=== PATIENT | female | born 1970 | race Caucasian/White ===

== ENCOUNTER → 2016-07-21 | Outpatient (CLI) | payer BC ==
[~2016-07-21] MED LIST: FERR325T88 PO; OMEP40CA2 PO; SIMV20TA2 PO; SUCR1TA PO; TELM1TAB PO; VITA100037 PO
[2016-07-21 17:20] LABS: ALBUMIN/GLOBULIN RATIO 1.18 (1.00-1.93); ALKALINE PHOSPHATASE 112 U/L (45-117); ALT/SGPT 31 U/L (12-78); ANION GAP 9 MEQ/L (8-16); AST/SGOT 24 U/L (15-37); BILIRUBIN,TOTAL 0.3 MG/DL (0.2-1.0); BLOOD UREA NITROGEN 20 MG/DL (7-18); CALCIUM LEVEL 8.7 MG/DL (8.5-10.1); CARBON DIOXIDE LEVEL 25 MEQ/L (21-32); CHLORIDE LEVEL 106 MEQ/L (98-107); CREATININE FOR GFR 0.82 MG/DL (0.55-1.02); FERRITIN 19 NG/ML (8-252); GLOMERULAR FILTRATION RATE > 60.0 (>58); GLUCOSE, FASTING 89 MG/DL (70-105); PERCENT SATURATION 15.5 % (13.2-37.4); POTASSIUM SERUM 4.4 MEQ/L (3.5-5.1); SODIUM LEVEL 140 MEQ/L (136-145); TOTAL IRON BINDING CAPACITY 453 UG/DL (250-450); TOTAL PROTEIN 7.4 GM/DL (6.4-8.2)
[2016-07-21 17:37] LABS: MEAN CORPUSCULAR HEMOGLOBIN 30.6 pg (27.0-33.0); MEAN CORPUSCULAR HGB CONC 34.6 g/dl (32.0-36.5); MEAN CORPUSCULAR VOLUME 88.4 fl (80.0-96.0); RED CELL DISTRIBUTION WIDTH 13.6 % (11.5-14.5); WHITE BLOOD COUNT 4.4 K/mm3 (4.0-10.0)
[2016-07-21 17:39] LABS: REASON FOR REVIEW OTHER
[2016-07-21 19:56] LABS: BASOPHILS 2 % (0-4); EOSINOPHILS 2 % (0-5)
== END | disposition home or self-care (01) ==
LOC: M LAB 16:10
PROVIDERS: ATTEND Family Medicine
DX: D50.9 Iron deficiency anemia, unspecified (principal); E55.9 Vitamin D deficiency, unspecified

== ENCOUNTER 2016-10-18 05:49 | Day surgery (SDC) | payer BC ==
[2016-10-18] VITALS (8 sets, daily range): BP systolic 120–138; BP diastolic 65–89
[~2016-10-18] VITALS: Ht 152.4 cm; Wt 87.5 kg
[~2016-10-18 05:49] MED LIST changes: +ESOM1CAP5 PO
[2016-10-18] MEDS ORDERED: LR 1,000 ML IV SCH ×2 (06:00→10:00)
[2016-10-18] MEDS: LR 1,000 ML IV SCH ×4 (06:00→18:30)
[2016-10-18 06:24] LABS: MEAN CORPUSCULAR HEMOGLOBIN 28.3 pg (27.0-33.0); MEAN CORPUSCULAR HGB CONC 32.3 g/dl (32.0-36.5); MEAN CORPUSCULAR VOLUME 87.6 fl (80.0-96.0); RED CELL DISTRIBUTION WIDTH 14.2 % (11.5-14.5); WHITE BLOOD COUNT 6.8 K/mm3 (4.0-10.0)
[2016-10-18 06:38] LABS: CONTROL LINE HCG INT CTR LINE PRESENT
[2016-10-18] MEDS ORDERED: ROCURONIUM BROMIDE 50 MG/5 ML VIAL As Ordered ONE (06:57)
[2016-10-18] MEDS ORDERED: PROPOFOL 200 MG/20 ML VIAL As Ordered ONE (06:57)
[2016-10-18] MEDS ORDERED: LIDOCAINE 2% INJ 100 MG/5 ML SDV (FOR ANES.) As Ordered ONE (06:57)
[2016-10-18] MEDS ORDERED: fentaNYL 250 MCG/5 ML INJECTION (J3010) As Ordered ONE (06:58)
[2016-10-18] MEDS ORDERED: MIDAZOLAM INJ 2 MG/2 ML VIAL (J2250) As Ordered ONE (06:58)
[2016-10-18] MEDS ORDERED: PHENYLephrine HCL 500 MCG/5 ML (100MCG/ML) SYRINGE (J2370) As Ordered ONE (07:38)
[2016-10-18] MEDS ORDERED: ePHEDrine SULFATE 25 MG/5 ML(5MG/ML) SYRINGE As Ordered ONE (07:45)
[2016-10-18] MEDS ORDERED: GLYCOPYRROLATE INJ 0.2 MG/ML 2 ML VIAL As Ordered ONE (08:46)
[2016-10-18] MEDS ORDERED: ONDANSETRON 4MG/2ML VIAL (J2405) As Ordered ONE ×2 (08:46→09:43)
[2016-10-18] MEDS ORDERED: KETOROLAC 60 MG/2 ML VIAL (J1885) As Ordered ONE (08:46)
[2016-10-18] MEDS ORDERED: NEOSTIGMINE 1MG/ML 5 ML SYRINGE (J2710) As Ordered ONE (08:46)
[2016-10-18] MEDS ORDERED: METHYLENE BLUE 0.5% (5MG/ML) 10 ML AMP (PROVAYBLUE)(Q9968 PER 1MG) As Ordered ONE (08:47)
[2016-10-18] MEDS ORDERED: fentaNYL 100 MCG/2 ML INJECTION (J3010) As Ordered ONE ×2 (08:54→10:10)
[2016-10-18] MEDS ORDERED: NORCO, ANEXSIA 5/325MG TABLET (HYDROcodone/ACETAMINOPHEN) PO PRN ×2 (10:00)
[2016-10-18] MEDS ORDERED: ONDANSETRON 4MG/2ML VIAL (J2405) IV PRN (10:00)
[2016-10-18] MEDS ORDERED: IBUPROFEN 600 MG TAB PO PRN (10:15)
[2016-10-18] MEDS: fentaNYL 100 MCG/2 ML INJECTION (J3010) IV PRN ×2 (10:15→10:20)
[2016-10-18] MEDS ORDERED: METOCLOPRAMIDE INJ 10MG/2ML VIAL (J2765) As Ordered ONE (10:16)
[2016-10-18] MEDS ORDERED: METOCLOPRAMIDE INJ 10MG/2ML VIAL (J2765) IV PRN (10:45)
--- NOTE | 2016-10-18 10:49 | RO ---
DATE OF PROCEDURE: 10/18/2016 PREOPERATIVE DIAGNOSIS/INDICATION FOR SURGERY: Dysmenorrhea, menorrhagia, failed conservative efforts. POSTOPERATIVE DIAGNOSIS: Dysmenorrhea, menorrhagia, failed conservative efforts, fibroids. PROCEDURE: Total vaginal hysterectomy with right salpingectomy and cystourethroscopy. SURGEON: Martha Sebastian MD CITY SECRETARY: ANESTHESIA: General endotracheal anesthesia. BRIEF DESCRIPTION OF PROCEDURE AND FINDINGS: Annetta was brought to the operating room where sufficient anesthesia was induced and she was prepped, draped and positioned in the usual sterile fashion. The weighted speculum placed, the bladder emptied, and the anterior and posterior aspect of the cervix grasped with single tooth tenacula. A circumferential incision was made around the base of the cervix, which was unusually friable in texture. We then isolated the cardinal ligament, clamped, transected and ligated them using the Dickson clamps, which were used through and #0 Vicryl, which was used throughout. We then isolated the uterosacral, clamped, transected and ligated them, and in a third bite on the patient's left side, which we did next after deflecting the bladder away anterior, there appeared to be some fat or other tissue there. There was some concern for being to close to the bladder so a decision on the basis of this unusual finding during the case was then made for the addition of cystourethroscopy to the case. We proceeded with the dissection, having more difficulty than usual anteriorly. The cervix in fact we ended up undermining in the cervical tissue and entering into the endometrial canal anteriorly and still not really finding that plane smoothly. We went ahead and dissected further along the patient's right side and then came back across in the proper plane and then continued to gradually dissect through the uterine vasculature in a progressive fashion along each side of the uterus until the level of the utero-ovarian suspensory ligaments were reached and the fallopian tubes and round ligaments, having clamped, transected ligated these, the uterus was delivered intact. There did not appear during the case to be any unusual fluid discharge or any evidence of injury from the ureter or bladder. Nevertheless, we held to that decision to scope her. First we made sure that the pedicles were good. We could not see the left tube and the patient's tissues were remarkably friable. There appeared to be some generating fibroids within the uterus and this is possibly the source of that other appearing tissue which may have been degenerating fibroid rather than fat. Nevertheless, we checked the pedicles. We were able to get the fimbria on the right side and bring those down. There is a little portion of the midportion of the tube there that was adherent to the ovary which the patient did not want to lose and so we went ahead and took the distal portion of the right tube and then left the left tube because we could not bring it down safely. I checked the pedicles which were try and then angle stitches of #0 Vicryl were used to close the angles and we then re-incorporated the uterosacral with good support to the vagina and closed the vaginal cuff with a running locked stitch of #0 Vicryl. We then placed the cystoscope. The first finding is that there was still urine within the bladder, so no evidence that it had been leaking out during the case, but in fact she had collected more after being emptied at the beginning of the case, and we emptied this out so as to improve our view. I gave the patient methylene blue and we were able to see the absence of any injury to the bladder and normal jets of urine with blue dye from each ureteral orifice. We have not used any cautery in the entire case, so there was no risk of cautery injury at all. Having confirmed the absence of bladder injury and of course having already closed the cuff, the procedure was then ended. ESTIMATED BLOOD FOR THE PROCEDURE: About 100 mL. FLUID REPLACEMENT: Crystalloid. COMPLICATIONS: None. CONDITION AND DISPOSITION: Annetta tolerated the procedure well and was recovering in the recovery room in good condition.
[2016-10-18] MEDS ORDERED: GABAPENTIN 300 MG CAP PO SCH (21:00)
[2016-10-18] MEDS ORDERED: SIMVASTATIN 20 MG TAB PO SCH (21:00)
[2016-10-19] VITALS: BP 118/63
[2016-10-19] MEDS: LR 1,000 ML IV SCH (02:35)
[2016-10-19 04:00] VITALS: BP 121/72
[2016-10-19 07:00] LABS: MEAN CORPUSCULAR HEMOGLOBIN 28.5 pg (27.0-33.0); MEAN CORPUSCULAR HGB CONC 32.2 g/dl (32.0-36.5); MEAN CORPUSCULAR VOLUME 88.5 fl (80.0-96.0); RED CELL DISTRIBUTION WIDTH 14.5 % (11.5-14.5); WHITE BLOOD COUNT 8.2 K/mm3 (4.0-10.0)
[2016-10-19 09:00] VITALS: BP 132/68
== END 2016-10-19 10:27 | disposition home or self-care (01) ==
LOC: M SDC 05:49 → M PED 10:49 → M SDC 10-19 10:27
PROVIDERS: ATTEND Obstetrics & Gynecology
DX: N94.6 Dysmenorrhea, unspecified (principal); N92.0 Excessive and frequent menstruation with regular cycle; D25.9 Leiomyoma of uterus, unspecified; K21.9 Gastro-esophageal reflux disease without esophagitis; G47.33 Obstructive sleep apnea (adult) (pediatric); E78.00 Pure hypercholesterolemia, unspecified; M54.9 Dorsalgia, unspecified; I35.1 Nonrheumatic aortic (valve) insufficiency; I71.01 Dissection of thoracic aorta; I10 Essential (primary) hypertension; R94.31 Abnormal electrocardiogram [ECG] [EKG]; E66.9 Obesity, unspecified; M12.9 Arthropathy, unspecified; D64.9 Anemia, unspecified; E55.9 Vitamin D deficiency, unspecified; Z88.5 Allergy status to narcotic agent; Z91.041 Radiographic dye allergy status; Z79.899 Other long term (current) drug therapy; Z79.82 Long term (current) use of aspirin; Z98.51 Tubal ligation status; Z87.81 Personal history of (healed) traumatic fracture; Z87.891 Personal history of nicotine dependence
CPT/HCPCS: 36415; 58262; 84703; 85027; 86850; 86900; 86901; 88309; 96374; 96375; J0690; J1885; J2250; J2370; J2405; J2710; J2765; J3010; Q9968

== ENCOUNTER → 2016-11-09 | Outpatient (CLI) | payer BC ==
[2016-11-09 11:21] LABS: BASO # 0.1 K/mm3 (0.0-0.2); BASO % 1.3 % (0.0-1.0); EOS # 0.1 K/mm3 (0.0-0.50); EOS % 1.6 % (0.0-3.0); LYMPH # 1.1 K/mm3 (1.5-4.5); LYMPH % 19.6 % (24.0-44.0); MEAN CORPUSCULAR HEMOGLOBIN 29.2 pg (27.0-33.0); MEAN CORPUSCULAR HGB CONC 33.4 g/dl (32.0-36.5); MEAN CORPUSCULAR VOLUME 87.3 fl (80.0-96.0); MONO # 0.3 K/mm3 (0.0-0.8); MONO % 5.3 % (0.0-5.0); NEUTROPHILS # 3.8 K/mm3 (1.8-7.7); NEUTROPHILS % 70.8 % (36.0-66.0); RED CELL DISTRIBUTION WIDTH 15.2 % (11.5-14.5); WHITE BLOOD COUNT 5.3 K/mm3 (4.0-10.0)
[2016-11-09 11:48] LABS: ANION GAP 3 MEQ/L (8-16); BLOOD UREA NITROGEN 16 MG/DL (7-18); CALCIUM LEVEL 8.9 MG/DL (8.5-10.1); CARBON DIOXIDE LEVEL 30 MEQ/L (21-32); CHLORIDE LEVEL 107 MEQ/L (98-107); CREATININE FOR GFR 0.68 MG/DL (0.55-1.02); GLOMERULAR FILTRATION RATE > 60.0 (>58); GLUCOSE, FASTING 76 MG/DL (70-105); POTASSIUM SERUM 4.8 MEQ/L (3.5-5.1); SODIUM LEVEL 140 MEQ/L (136-145)
--- NOTE | 2016-11-09 14:11 | ECGEPIP ---
Stationary ECG Study 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
== END ==
LOC: M LAB 10:32
PROVIDERS: ATTEND Obstetrics & Gynecology
DX: Z01.810 Encounter for preprocedural cardiovascular examination (principal); C54.1 Malignant neoplasm of endometrium; R94.31 Abnormal electrocardiogram [ECG] [EKG]

== ENCOUNTER → 2016-11-09 | Outpatient (CLI) | payer BC ==
[2016-11-09 11:20] LABS: BASO # 0.1 K/mm3 (0.0-0.2); BASO % 1.1 % (0.0-1.0); EOS # 0.1 K/mm3 (0.0-0.50); EOS % 1.9 % (0.0-3.0); LARGE UNSTAINED CELL # 0.1 K/mm3 (0.0-0.4); LARGE UNSTAINED CELL % 1.2 % (0.0-4.0); LYMPH # 1.1 K/mm3 (1.5-4.5); LYMPH % 20.2 % (24.0-44.0); MEAN CORPUSCULAR HEMOGLOBIN 29.2 pg (27.0-33.0); MEAN CORPUSCULAR HGB CONC 33.6 g/dl (32.0-36.5); MEAN CORPUSCULAR VOLUME 86.9 fl (80.0-96.0); MONO # 0.3 K/mm3 (0.0-0.8); MONO % 5.7 % (0.0-5.0); NEUTROPHILS # 3.6 K/mm3 (1.8-7.7); NEUTROPHILS % 69.9 % (36.0-66.0); PLATELET COUNT, AUTOMATED 307 k/mm3 (150-450); RED CELL DISTRIBUTION WIDTH 15.2 % (11.5-14.5); WHITE BLOOD COUNT 5.2 K/mm3 (4.0-10.0)
[2016-11-09 11:52] LABS: PERCENT SATURATION 17.8 % (13.2-37.4)
== END ==
LOC: M LAB 10:37
PROVIDERS: ATTEND Family Medicine
DX: D50.9 Iron deficiency anemia, unspecified (principal); E78.2 Mixed hyperlipidemia

== ENCOUNTER → 2017-01-24 | Outpatient (CLI) | payer BC ==
[~2017-01-24] MED LIST changes: -VITA100037 PO; +VITA100067 PO
--- NOTE | 2017-01-24 21:14 | REP ---
Right ankle series, complete: 01/24/2017. Clinical history: Right ankle pain. Patient fell. Findings: There are no prior studies. There is soft tissue swelling over the anterolateral aspect of the ankle and hind foot. There is no visible or displaced fracture of the distal tibia and fibula. The mortise joint is symmetric and preserved with no talar dome osteochondral defect. Subtalar joints are intact. No heel spurs. Talonavicular and calcaneocuboid joints are normal. Visualized tarsal bones and metatarsals intact. Impression: 1. Soft tissue swelling anterior to the ankle and lateral aspect with no visible or displaced fracture, avulsion, disruption of the mortise joint or other acute finding Signed by Dario Farah MD 01/24/2017 09:36 P
== END ==
LOC: M ADAMS 14:27
PROVIDERS: ATTEND Physician Assistant
DX: M25.571 Pain in right ankle and joints of right foot (principal); M79.89 Other specified soft tissue disorders

== ENCOUNTER → 2017-04-14 | Outpatient (CLI) | payer BC ==
--- NOTE | 2017-04-15 06:14 | REP ---
Clinical: Renal cyst. Comparison: 01/28/2016. Technique: Real time wing scale ultrasound examination using curved array transducer. Findings: The bilateral kidneys are normal in contour, size, echogenicity, and reniform shape without hydronephrosis, nephrolithiasis, cystic or renal mass lesion. No perinephric fluid collections are identified. The bladder is collapsed and under distended. Right kidney measures 10.0 x 5.2 x 4.4 cm Left kidney measures 10.5 x 4.9 x 4.6 cm Impression: Normal renal ultrasound. No obvious/significant cyst by ultrasound evaluation identified. Signed by Benji Cope MD 04/15/2017 06:05 A
== END ==
LOC: M RAD 16:39
PROVIDERS: ATTEND Family Medicine
DX: N28.1 Cyst of kidney, acquired (principal)

== ENCOUNTER → 2017-08-03 | Outpatient (REF) | payer BC | LOC: M SFHCWAGY 15:22 | DX: Z12.72 Encounter for screening for malignant neoplasm of vagina (principal); Z85.42 Personal history of malignant neoplasm of other parts of uterus | CPT/HCPCS: G0123 ==

== ENCOUNTER → 2017-08-03 | Outpatient (CLI) | payer BC ==
[2017-08-03 07:23] LABS: BASO # 0.1 10^3/uL (0.0-0.2); BASO % 1.3 % (0.0-1.0); EOS # 0.1 10^3/uL (0.0-0.50); EOS % 1.8 % (0.0-3.0); HEMATOCRIT 42.6 % (36.0-47.0); HEMOGLOBIN 14.3 g/dl (12.0-16.0); IMMATURE GRANULOCYTE % 0.2 % (0-0); LYMPH # 1.8 10^3/uL (1.5-4.5); LYMPH % 32.3 % (24.0-44.0); MEAN CORPUSCULAR HGB CONC 33.6 g/dl (32.0-36.5); MEAN CORPUSCULAR VOLUME 92.4 fl (80.0-96.0); MONO # 0.5 10^3/uL (0.0-0.8); MONO % 8.9 % (0.0-5.0); NEUTROPHILS % 55.5 % (36.0-66.0); PLATELET COUNT, AUTOMATED 301 10^3/uL (150-450); RED BLOOD COUNT 4.61 10^6/uL (4.00-5.40); WHITE BLOOD COUNT 5.4 10^3/uL (4.0-10.0)
[2017-08-03 07:52] LABS: ESTIMATED AVERAGE GLUCOSE 111 MG/DL (60-110); HEMOGLOBIN A1c 5.5 %
[2017-08-03 07:56] LABS: ALBUMIN 4.1 GM/DL (3.2-5.2); ALBUMIN/GLOBULIN RATIO 1.21 (1.00-1.93); ALKALINE PHOSPHATASE 107 U/L (45-117); ALT/SGPT 30 U/L (12-78); ANION GAP 11 MEQ/L (8-16); AST/SGOT 20 U/L (7-37); BILIRUBIN,TOTAL 0.6 MG/DL (0.2-1.0); BLOOD UREA NITROGEN 10 MG/DL (7-18); CALCIUM LEVEL 9.5 MG/DL (8.5-10.1); CARBON DIOXIDE LEVEL 23 MEQ/L (21-32); CHLORIDE LEVEL 110 MEQ/L (98-107); CHOLESTEROL LEVEL 164 MG/DL (<200); CHOLESTEROL RISK RATIO 4.823 (<5); CPK CREATINE PHOSPHOKINASE 265 U/L (26-192); CREATININE FOR GFR 0.88 MG/DL (0.55-1.30); FERRITIN 51 NG/ML (8-252); FREE T4 1.15 NG/DL (0.76-1.46); GLOMERULAR FILTRATION RATE > 60.0 (>58); GLUCOSE, FASTING 97 MG/DL (70-100); HDL CHOLESTEROL 34 MG/DL (>40); IRON (FE) 92 UG/DL (50-170); LDL CHOLESTEROL 94.2 MG/DL (<100); NON-HDL-C 130 MG/DL; PERCENT SATURATION 22.9 % (13.2-45.0); POTASSIUM SERUM 4.2 MEQ/L (3.5-5.1); SODIUM LEVEL 144 MEQ/L (136-145); TOTAL IRON BINDING CAPACITY 402 UG/DL (250-450); TOTAL PROTEIN 7.5 GM/DL (6.4-8.2); TRIGLYCERIDES LEVEL 179 MG/DL (<150)
[2017-08-03 08:50] LABS: TOTAL 25(OH) VITAMIN D 61.9 NG/ML (30.0-100.0)
[2017-08-03 08:51] LABS: PTH INTACT 33.3 PG/ML (14.0-72.0)
[2017-08-04 14:11] LABS: INSULIN LEVEL 44.1 uIU/mL (2.6-24.9)
== END ==
LOC: M LAB 06:19
DX: D50.9 Iron deficiency anemia, unspecified (principal); E78.2 Mixed hyperlipidemia; E55.9 Vitamin D deficiency, unspecified; C54.1 Malignant neoplasm of endometrium

== ENCOUNTER → 2017-09-15 | Outpatient (CLI) | payer BC | LOC: M RAD 06:11 | DX: I71.4 Abdominal aortic aneurysm, without rupture (principal) ==

== ENCOUNTER → 2017-10-26 | Outpatient (REF) | payer BC | LOC: M SFHCWAGY 15:53 | DX: Z12.72 Encounter for screening for malignant neoplasm of vagina (principal); Z85.42 Personal history of malignant neoplasm of other parts of uterus | CPT/HCPCS: G0123 ==

== ENCOUNTER → 2017-12-30 | Outpatient (CLI) | payer BC ==
[2017-12-30 07:14] LABS: BASO # 0.1 10^3/uL (0.0-0.2); BASO % 1.6 % (0.0-1.0); EOS # 0.1 10^3/uL (0.0-0.50); EOS % 1.8 % (0.0-3.0); HEMATOCRIT 39.7 % (36.0-47.0); HEMOGLOBIN 13.5 g/dl (12.0-15.5); IMMATURE GRANULOCYTE % 0.4 % (0-3.0); LYMPH # 1.6 10^3/uL (1.5-4.5); LYMPH % 32.8 % (24.0-44.0); MEAN CORPUSCULAR HEMOGLOBIN 31.5 pg (27.0-33.0); MEAN CORPUSCULAR VOLUME 92.8 fl (80.0-96.0); MONO # 0.5 10^3/uL (0.0-0.8); MONO % 9.8 % (0.0-5.0); NEUTROPHILS # 2.6 10^3/uL (1.8-7.7); NEUTROPHILS % 53.6 % (36.0-66.0); PLATELET COUNT, AUTOMATED 268 10^3/uL (150-450); RED BLOOD COUNT 4.28 10^6/uL (4.00-5.40); RED CELL DISTRIBUTION WIDTH 14.5 % (11.5-14.5); RETIC HEMOGLOBIN EQUIVALENT 35.9 pg (24-36); RETICULOCYTE # 92.4 10^9/L (17-77); RETICULOCYTE % 2.2 % (0.5-1.5); WHITE BLOOD COUNT 4.9 10^3/uL (4.0-10.0)
[2017-12-30 07:25] LABS: ESTIMATED AVERAGE GLUCOSE 128 MG/DL (60-110); HEMOGLOBIN A1c 6.1 %
[2017-12-30 07:43] LABS: FREE T4 0.93 NG/DL (0.76-1.46)
[2017-12-30 07:43] LABS: CPK CREATINE PHOSPHOKINASE 468 U/L (26-192)
[2017-12-30 11:02] LABS: THYROID PEROXIDASE ANTIBODY < 28.0 U/ML (<60.0); VITAMIN B12 LEVEL 445 PG/ML (247-911)
== END ==
LOC: M LAB 06:46
DX: D50.9 Iron deficiency anemia, unspecified (principal)
CPT/HCPCS: 82550

== ENCOUNTER → 2018-01-31 | Outpatient (REF) | payer BC | LOC: M SFHCWAGY 15:28 | DX: Z12.72 Encounter for screening for malignant neoplasm of vagina (principal) | CPT/HCPCS: G0123 ==

== ENCOUNTER → 2018-05-01 | Outpatient (CLI) | payer BC ==
[2018-05-01 09:42] LABS: BASO # 0.1 10^3/uL (0.0-0.2); BASO % 1.7 % (0.0-1.0); EOS # 0.1 10^3/uL (0.0-0.50); EOS % 1.4 % (0.0-3.0); HEMATOCRIT 42.3 % (36.0-47.0); HEMOGLOBIN 14.2 g/dl (12.0-15.5); IMMATURE GRANULOCYTE % 0.2 % (0-3.0); LYMPH # 1.7 10^3/uL (1.5-4.5); LYMPH % 35.8 % (24.0-44.0); MEAN CORPUSCULAR HEMOGLOBIN 30.8 pg (27.0-33.0); MEAN CORPUSCULAR HGB CONC 33.6 g/dl (32.0-36.5); MEAN CORPUSCULAR VOLUME 91.8 fl (80.0-96.0); MONO # 0.4 10^3/uL (0.0-0.8); MONO % 7.7 % (0.0-5.0); NEUTROPHILS # 2.6 10^3/uL (1.8-7.7); NEUTROPHILS % 53.2 % (36.0-66.0); PLATELET COUNT, AUTOMATED 267 10^3/uL (150-450); RED BLOOD COUNT 4.61 10^6/uL (4.00-5.40); RED CELL DISTRIBUTION WIDTH 13.4 % (11.5-14.5); RETIC HEMOGLOBIN EQUIVALENT 34.5 pg (24-36); RETICULOCYTE # 119.4 10^9/L (17-77); RETICULOCYTE % 2.6 % (0.5-1.5); WHITE BLOOD COUNT 4.8 10^3/uL (4.0-10.0)
[2018-05-01 09:45] LABS: APPEARANCE, URINE HAZY (CLEAR); BACTERIA, URINE AUTO NEGATIVE (NEGATIVE); BILIRUBIN, URINE AUTO NEGATIVE (NEGATIVE); BLOOD, URINE BLOOD NEGATIVE (NEGATIVE); COLOR, URINE YELLOW (YELLOW); GLUCOSE, URINE (UA) AUTO NEGATIVE (NEGATIVE); KETONE, URINE AUTO NEGATIVE (NEGATIVE); LEUKOCYTE ESTERASE, URINE AUTO NEGATIVE (NEGATIVE); MUCUS, URINE SMALL (NEGATIVE); NITRITE, URINE AUTO NEGATIVE (NEGATIVE); PROTEIN, URINE AUTO NEGATIVE (NEGATIVE); RBC, URINE AUTO 2 /HPF (0-3); SPECIFIC GRAVITY URINE AUTO 1.016 (1.002-1.035); SQUAMOUS EPITHELIAL CELL UR AU 5 /HPF (0-6); UROBILINOGEN, URINE AUTO 0.2 mg/dL (0.0-2.0); WBC, URINE AUTO 2 /HPF (0-3)
[2018-05-01 10:16] LABS: MALB URINE SIEMENS 9.5 MG/L
[2018-05-01 10:18] LABS: ALBUMIN 3.9 GM/DL (3.2-5.2); ALBUMIN/GLOBULIN RATIO 1.22 (1.00-1.93); ALKALINE PHOSPHATASE 141 U/L (45-117); ALT/SGPT 58 U/L (12-78); ANION GAP 7 MEQ/L (8-16); AST/SGOT 34 U/L (7-37); BILIRUBIN,TOTAL 0.5 MG/DL (0.2-1.0); BLOOD UREA NITROGEN 12 MG/DL (7-18); C REACTIVE PROTEIN QUANTITATIV < 0.30 MG/DL (0.00-0.30); CALCIUM LEVEL 9.6 MG/DL (8.5-10.1); CARBON DIOXIDE LEVEL 26 MEQ/L (21-32); CHLORIDE LEVEL 108 MEQ/L (98-107); CHOLESTEROL LEVEL 178 MG/DL (<200); CHOLESTEROL RISK RATIO 6.137 (<5); CPK CREATINE PHOSPHOKINASE 119 U/L (26-192); CREATININE FOR GFR 0.78 MG/DL (0.55-1.30); GLOMERULAR FILTRATION RATE > 60.0 (>58); GLUCOSE, FASTING 78 MG/DL (70-100); HDL CHOLESTEROL 29 MG/DL (>40); LDL CHOLESTEROL 97 MG/DL (<100); NON-HDL-C 149 MG/DL; POTASSIUM SERUM 4.2 MEQ/L (3.5-5.1); SODIUM LEVEL 141 MEQ/L (136-145); TOTAL PROTEIN 7.1 GM/DL (6.4-8.2); TRIGLYCERIDES LEVEL 260 MG/DL (<150)
[2018-05-01 10:23] LABS: MAU/CREAT RATIO 6.8 MCG/MG (0.0-30.0)
[2018-05-01 10:28] LABS: PTH INTACT 33.9 PG/ML (18.5-88.0); TOTAL 25(OH) VITAMIN D 45.8 NG/ML (30.0-100.0)
[2018-05-01 11:10] LABS: ESTIMATED AVERAGE GLUCOSE 111 MG/DL (60-110); HEMOGLOBIN A1c 5.5 %
[2018-05-02 14:13] LABS: INSULIN LEVEL 35.9 uIU/mL (2.6-24.9)
== END ==
LOC: M LAB 09:00
DX: D50.9 Iron deficiency anemia, unspecified (principal); R73.01 Impaired fasting glucose; E78.2 Mixed hyperlipidemia; E55.9 Vitamin D deficiency, unspecified
CPT/HCPCS: 82550

== ENCOUNTER → 2018-05-10 | Outpatient (REF) | payer BC | LOC: M SFHCWAGY 16:22 | DX: Z12.72 Encounter for screening for malignant neoplasm of vagina (principal); Z85.42 Personal history of malignant neoplasm of other parts of uterus | CPT/HCPCS: G0123 ==

== ENCOUNTER → 2018-05-10 | Outpatient (CLI) | payer BC | LOC: M WHC 14:56 | DX: Z12.31 Encounter for screening mammogram for malignant neoplasm of breast (principal); Z85.43 Personal history of malignant neoplasm of ovary; Z80.0 Family history of malignant neoplasm of digestive organs | CPT/HCPCS: 77067 ==

== ENCOUNTER → 2018-08-10 | Outpatient (REF) | payer BC | LOC: M SFHCWAGY 15:16 | PROVIDERS: ATTEND Nurse Practitioner Women's Health | DX: Z12.4 Encounter for screening for malignant neoplasm of cervix (principal); Z85.42 Personal history of malignant neoplasm of other parts of uterus ==

== ENCOUNTER → 2018-10-05 | Outpatient (CLI) | payer BC ==
[2018-10-05 17:36] LABS: BASO # 0.1 10^3/uL (0.0-0.2); BASO % 1.6 % (0.0-1.0); EOS # 0.1 10^3/uL (0.0-0.50); EOS % 2.2 % (0.0-3.0); HEMATOCRIT 39.1 % (36.0-47.0); HEMOGLOBIN 12.8 g/dl (12.0-15.5); LYMPH # 1.5 10^3/uL (1.5-4.5); LYMPH % 29.9 % (24.0-44.0); MEAN CORPUSCULAR HEMOGLOBIN 30.6 pg (27.0-33.0); MEAN CORPUSCULAR HGB CONC 32.7 g/dl (32.0-36.5); MEAN CORPUSCULAR VOLUME 93.5 fl (80.0-96.0); MONO # 0.5 10^3/uL (0.0-0.8); MONO % 9.4 % (0.0-5.0); NEUTROPHILS # 2.8 10^3/uL (1.8-7.7); NEUTROPHILS % 56.5 % (36.0-66.0); PLATELET COUNT, AUTOMATED 245 10^3/uL (150-450); RED BLOOD COUNT 4.18 10^6/uL (4.00-5.40); WHITE BLOOD COUNT 4.9 10^3/uL (4.0-10.0)
[2018-10-05 17:52] LABS: APPEARANCE, URINE MANUAL TURBID (CLEAR); COLOR, URINE MANUAL YELLOW (YELLOW)
[2018-10-05 17:54] LABS: ALBUMIN 3.8 GM/DL (3.2-5.2); ALT/SGPT 40 U/L (12-78); BILIRUBIN, URINE MANUAL NEGATIVE (NEGATIVE); BILIRUBIN,TOTAL 0.4 MG/DL (0.2-1.0); BLOOD UREA NITROGEN 13 MG/DL (7-18); BLOOD URINE MANUAL NEGATIVE (NEGATIVE); C REACTIVE PROTEIN QUANTITATIV < 0.30 MG/DL (0.00-0.30); CALCIUM LEVEL 8.5 MG/DL (8.5-10.1); CARBON DIOXIDE LEVEL 27 MEQ/L (21-32); CHLORIDE LEVEL 113 MEQ/L (98-107); CHOLESTEROL LEVEL 174 MG/DL (<200); CHOLESTEROL RISK RATIO 5.437 (<5); CPK CREATINE PHOSPHOKINASE 397 U/L (26-192); CREATININE FOR GFR 0.83 MG/DL (0.55-1.30); GLOMERULAR FILTRATION RATE > 60.0 (>58); GLUCOSE, FASTING 94 MG/DL (70-100); GLUCOSE, URINE (UA) MANUAL NEGATIVE (NEGATIVE); HDL CHOLESTEROL 32 MG/DL (>40); KETONE, URINE MANUAL 1+ mg/dL (NEGATIVE); LDL CHOLESTEROL 76 MG/DL (<100); LEUKOCYTE ESTERASE, URINE MAN NEGATIVE (NEGATIVE); NITRITE, URINE MANUAL NEGATIVE (NEGATIVE); NON-HDL-C 142 MG/DL; PROTEIN, URINE MANUAL NEGATIVE (NEGATIVE); SODIUM LEVEL 144 MEQ/L (136-145); TOTAL PROTEIN 6.8 GM/DL (6.4-8.2); TRIGLYCERIDES LEVEL 331 MG/DL (<150); UROBILINOGEN, URINE MANUAL 1 MG mg/dl (NORMAL)
[2018-10-05 17:56] LABS: HEMOGLOBIN A1c 5.2 %
[2018-10-05 18:01] LABS: TOTAL 25(OH) VITAMIN D 69.9 NG/ML (30.0-100.0)
[2018-10-05 18:03] LABS: PTH INTACT 81.1 PG/ML (18.5-88.0)
[2018-10-05 18:08] LABS: AMORPHOUS SEDIMENT, URINE LARGE AMOUNT (NEGATIVE); BACTERIA, URINE NONE SEEN; CALCIUM OXALATE CRYSTALS,URINE SMALL AMOUNT /hpf; HYALINE CAST, URINE NONE SEEN /lpf (0-1); MALB URINE SIEMENS 26.2 MG/L; MUCUS, URINE SMALL AMOUNT (NEGATIVE); RBC, URINE NONE SEEN /hpf (0-3); SQUAMOUS EPITHELIAL CELL URINE MOD AMOUNT /hpf (SMALL AMT); WBC, URINE NONE SEEN /hpf (0-3)
== END ==
LOC: M LAB 15:47
PROVIDERS: ATTEND Family Medicine
DX: Z34.81 Encounter for supervision of other normal pregnancy, first trimester (principal); Z3A.00 Weeks of gestation of pregnancy not specified

== ENCOUNTER → 2018-11-07 | Outpatient (REF) | payer BC | LOC: M SFHCWAGY 15:31 | PROVIDERS: ATTEND Nurse Practitioner Family | DX: Z90.710 Acquired absence of both cervix and uterus (principal); Z08 Encounter for follow-up examination after completed treatment for malignant neoplasm ==

== ENCOUNTER → 2018-11-28 | Outpatient (CLI) | payer BC ==
[2018-11-28 17:31] LABS: ALBUMIN 3.7 GM/DL (3.2-5.2); BLOOD UREA NITROGEN 11 MG/DL (7-18); CALCIUM LEVEL 8.9 MG/DL (8.5-10.1); CARBON DIOXIDE LEVEL 29 MEQ/L (21-32); CHLORIDE LEVEL 109 MEQ/L (98-107); CREATININE FOR GFR 0.93 MG/DL (0.55-1.30); GLOMERULAR FILTRATION RATE > 60.0 (>58); GLUCOSE, FASTING 105 MG/DL (70-100); PHOSPHORUS LEVEL 4.5 MG/DL (2.5-4.9); POTASSIUM SERUM 4.1 MEQ/L (3.5-5.1); SODIUM LEVEL 144 MEQ/L (136-145)
== END ==
LOC: M LAB 16:20
PROVIDERS: ATTEND Physician Assistant
DX: I10 Essential (primary) hypertension (principal)

== ENCOUNTER → 2018-12-14 | Outpatient (CLI) | payer BC ==
--- NOTE | 2018-12-14 11:45 | REP ---
RIGHT UPPER QUADRANT ULTRASOUND: Real-time sonographic evaluation of the right upper quadrant performed. Gallbladder demonstrates no evidence of intraluminal sludge or calculi, wall thickening or pericholecystic fluid. There is no intrahepatic or extrahepatic biliary dilatation, common bile duct measuring 3 mm. Liver appears somewhat echogenic diffusely suggesting diffuse fibrofatty infiltration. No liver or pancreatic mass is seen. The pancreas is not well seen due to overlying bowel gas. Right kidney demonstrates no hydronephrosis or nephrolithiasis with normal size 10.6 cm in length. IMPRESSION: Suspect diffuse fibrofatty infiltration of the liver. Electronically Signed by Carter Hernandez MD 12/14/2018 05:14 P
== END ==
LOC: M RAD 10:29
PROVIDERS: ATTEND Physician Assistant Medical
DX: R10.13 Epigastric pain (principal)

== ENCOUNTER → 2019-05-15 | Outpatient (CLI) | payer BC ==
[~2019-05-15] MED LIST changes: -OMEP40CA2 PO; +OMEP40CA97 PO
--- NOTE | 2019-05-16 08:58 | REPMRS ---
Patient History The patient states she had a clinical breast exam in 04/2019. Patient is postmenopausal and has history of ovarian cancer at age 45. Family history of pancreatic cancer at age 73 in mother. Took progesterone for 2 years. 3D TOMOSYNTHESIS WAS PERFORMED. The [facility] lifetime risk for breast cancer is 8.8%. Digital Woman Screen Mammo: May 15, 2019 - Exam #: [id number] Bilateral CC and MLO view(s) were taken. Technologist: Sandhya Kimball, Technologist Prior study comparison: May 10, 2018, bilateral digital woman screen mammo performed at [facility]. May 03, 2017, digital woman screen mammo performed at [facility]. FINDINGS: There are scattered fibroglandular densities. There has been no change in the appearance of the mammogram from the prior studies. There is a mild amount of residual fibroglandular tissue which is fairly symmetric. There is no interval development of dominant mass, architectural distortion, or clustered microcalcification suggestive of malignancy. Assessment: BI-RADS/ACR category 1 mammogram. Negative Mammogram. Recommendation Routine screening mammogram in 1 year (for women over age 40). This mammogram was interpreted with the aid of an FDA-approved computer-aided dectection system. Electronically Signed By: Carter Hernandez MD 05/16/19 [id number]
== END ==
LOC: M WHC 15:29
PROVIDERS: ATTEND Family Medicine
DX: Z12.31 Encounter for screening mammogram for malignant neoplasm of breast (principal)

== ENCOUNTER → 2019-05-16 | Outpatient (REF) | payer BC | LOC: M SFHCWAGY 08:22 | PROVIDERS: ATTEND Nurse Practitioner Family | DX: Z85.42 Personal history of malignant neoplasm of other parts of uterus (principal); Z90.710 Acquired absence of both cervix and uterus; Z08 Encounter for follow-up examination after completed treatment for malignant neoplasm ==

== ENCOUNTER → 2019-07-16 | Outpatient (CLI) | payer BC ==
[~2019-07-16] MED LIST changes: -SIMV20TA2 PO; +SIMV20TA22 PO
[2019-07-16 17:40] LABS: BASO # 0.1 10^3/uL (0.0-0.2); BASO % 1.3 % (0.0-1.0); EOS # 0.1 10^3/uL (0.0-0.5); HEMATOCRIT 40.5 % (36.0-47.0); HEMOGLOBIN 12.7 g/dl (12.0-15.5); LYMPH # 1.4 10^3/uL (1.5-5.0); LYMPH % 23.1 % (24.0-44.0); MEAN CORPUSCULAR HEMOGLOBIN 29.5 pg (27.0-33.0); MEAN CORPUSCULAR HGB CONC 31.4 g/dl (32.0-36.5); MONO # 0.5 10^3/uL (0.0-0.8); MONO % 8.3 % (0.0-5.0); NEUTROPHILS # 3.9 10^3/uL (1.5-8.5); NEUTROPHILS % 65.1 % (36.0-66.0); PLATELET COUNT, AUTOMATED 256 10^3/uL (150-450); RED BLOOD COUNT 4.31 10^6/uL (4.00-5.40)
[2019-07-16 18:07] LABS: ALBUMIN 3.9 GM/DL (3.2-5.2); ALT/SGPT 37 U/L (12-78); BILIRUBIN,TOTAL 0.5 MG/DL (0.2-1.0); BLOOD UREA NITROGEN 16 MG/DL (7-18); CALCIUM LEVEL 9.3 MG/DL (8.5-10.1); CARBON DIOXIDE LEVEL 28 MEQ/L (21-32); CHLORIDE LEVEL 107 MEQ/L (98-107); CREATININE FOR GFR 0.75 MG/DL (0.55-1.30); GLOMERULAR FILTRATION RATE > 60.0 (>58); GLUCOSE, FASTING 74 MG/DL (70-100); POTASSIUM SERUM 4.2 MEQ/L (3.5-5.1); SODIUM LEVEL 142 MEQ/L (136-145); TOTAL PROTEIN 7.2 GM/DL (6.4-8.2)
[2019-07-16 18:09] LABS: TOTAL 25(OH) VITAMIN D 50.2 NG/ML (30.0-100.0)
[2019-07-16 18:10] LABS: PTH INTACT 60.2 PG/ML (18.5-88.0); VITAMIN B12 LEVEL 550 PG/ML (247-911)
== END ==
LOC: M LAB 16:29
PROVIDERS: ATTEND Family Medicine
DX: E55.9 Vitamin D deficiency, unspecified (principal)

== ENCOUNTER → 2019-11-15 | Outpatient (REF) | payer BC ==
[~2019-11-15] MED LIST changes: -TELM1TAB PO; +TELM1TAB35 PO
== END ==
LOC: M SFHCWAGY 17:08
PROVIDERS: ATTEND Nurse Practitioner Women's Health
DX: Z12.72 Encounter for screening for malignant neoplasm of vagina (principal); Z85.42 Personal history of malignant neoplasm of other parts of uterus
CPT/HCPCS: 87624; G0123

== ENCOUNTER → 2020-02-06 | Outpatient (REF) | payer BC | LOC: M SFHCPLAZ 15:25 | PROVIDERS: ATTEND Nurse Practitioner Adult Health | DX: J06.9 Acute upper respiratory infection, unspecified (principal) ==

== ENCOUNTER → 2020-03-24 | Outpatient (CLI) | payer BC ==
[2020-03-24 07:05] LABS: APPEARANCE, URINE HAZY (CLEAR); BACTERIA, URINE AUTO NEGATIVE (NEGATIVE); BILIRUBIN, URINE AUTO NEGATIVE (NEGATIVE); BLOOD, URINE BLOOD NEGATIVE (NEGATIVE); COLOR, URINE YELLOW (YELLOW); GLUCOSE, URINE (UA) AUTO NEGATIVE (NEGATIVE); KETONE, URINE AUTO NEGATIVE (NEGATIVE); LEUKOCYTE ESTERASE, URINE AUTO NEGATIVE (NEGATIVE); MUCUS, URINE LARGE (NEGATIVE); NITRITE, URINE AUTO NEGATIVE (NEGATIVE); PROTEIN, URINE AUTO NEGATIVE (NEGATIVE); RBC, URINE AUTO 2 /HPF (0-3); SPECIFIC GRAVITY URINE AUTO 1.034 (1.002-1.035); SQUAMOUS EPITHELIAL CELL UR AU 6 /HPF (0-6); WBC, URINE AUTO 1 /HPF (0-3)
[2020-03-24 07:21] LABS: BASO # 0.1 10^3/uL (0.0-0.2); BASO % 1.7 % (0.0-1.0); EOS # 0.2 10^3/uL (0.0-0.5); EOS % 3.4 % (0.0-3.0); HEMOGLOBIN 12.8 g/dl (12.0-15.5); LYMPH # 1.4 10^3/uL (1.5-5.0); LYMPH % 29.7 % (24.0-44.0); MEAN CORPUSCULAR HEMOGLOBIN 30.6 pg (27.0-33.0); MEAN CORPUSCULAR VOLUME 95.7 fl (80.0-96.0); MONO # 0.4 10^3/uL (0.0-0.8); MONO % 8.9 % (0.0-5.0); NEUTROPHILS # 2.7 10^3/uL (1.5-8.5); NEUTROPHILS % 55.9 % (36.0-66.0); PLATELET COUNT, AUTOMATED 235 10^3/uL (150-450); RED BLOOD COUNT 4.18 10^6/uL (4.00-5.40); WHITE BLOOD COUNT 4.7 10^3/uL (4.0-10.0)
[2020-03-24 07:36] LABS: MALB URINE SIEMENS 21.9 MG/L; MAU/CREAT RATIO 9.5 MCG/MG (0.0-30.0)
[2020-03-24 07:36] LABS: ALBUMIN 3.8 GM/DL (3.2-5.2); ALT/SGPT 63 U/L (12-78); BILIRUBIN,TOTAL 0.4 MG/DL (0.2-1.0); BLOOD UREA NITROGEN 18 MG/DL (7-18); CARBON DIOXIDE LEVEL 29 MEQ/L (21-32); CHLORIDE LEVEL 112 MEQ/L (98-107); CHOLESTEROL LEVEL 174 MG/DL (<200); CHOLESTEROL RISK RATIO 4.833 (<5); CREATININE FOR GFR 0.66 MG/DL (0.55-1.30); FREE T4 1.05 NG/DL (0.76-1.46); GLOMERULAR FILTRATION RATE > 60.0 (>58); GLUCOSE, FASTING 94 MG/DL (70-100); HDL CHOLESTEROL 36 MG/DL (>40); LDL CHOLESTEROL 76 MG/DL (<100); MAGNESIUM LEVEL 2.3 MG/DL (1.8-2.4); NON-HDL-C 138 MG/DL; POTASSIUM SERUM 4.1 MEQ/L (3.5-5.1); SODIUM LEVEL 144 MEQ/L (136-145); TOTAL PROTEIN 6.9 GM/DL (6.4-8.2); TRIGLYCERIDES LEVEL 310 MG/DL (<150)
== END ==
LOC: M LAB 06:13
PROVIDERS: ATTEND Family Medicine
DX: R73.01 Impaired fasting glucose (principal); D50.9 Iron deficiency anemia, unspecified; I10 Essential (primary) hypertension; E78.2 Mixed hyperlipidemia

== ENCOUNTER → 2020-04-24 | Outpatient (CLI) | payer BC ==
--- NOTE | 2020-04-24 08:27 | REP ---
INDICATION: RUQ PAIN; PT AT MAIN REG. COMPARISON: Comparison sonography December 14, 2018. Comparison CT study April 30, 2015.. TECHNIQUE: Right upper quadrant sonography. FINDINGS: Scanning through the right upper quadrant of the abdomen demonstrates a normal sized, thin-walled gallbladder without evidence of stone or polyp. Common bile duct is normal measuring 0.5 cm in greatest diameter. No focal liver lesion is seen. Liver size is borderline, 16.2 cm midclavicular line vertical dimension. No pancreatic abnormality is observed. Pancreas is partially obscured by bowel gas. No right renal abnormality is seen. There is no evidence of ascites. The right kidney measures 11.2 x 5.2 x 3.9 cm. IMPRESSION: Borderline size liver, 16 cm. This is felt to be unchanged from comparison sonography. Otherwise negative right upper quadrant sonography.. <Electronically signed by Martinez Lopez > 04/24/20 0852
== END ==
LOC: M RAD 07:18
PROVIDERS: ATTEND Family Medicine
DX: R10.11 Right upper quadrant pain (principal)

== ENCOUNTER → 2020-05-16 | Outpatient (CLI) | payer BC ==
--- NOTE | 2020-05-16 13:04 | REPMRS ---
Patient History The patient states she had a clinical breast exam in April 2020. Family history of pancreatic cancer at age 73 in mother. Took progesterone for 2 years. 3D TOMOSYNTHESIS WAS PERFORMED. [facility] Volpara breast density b. Digital Woman Screen Mammo: May 16, 2020 - Exam #: [id number] Bilateral CC and MLO view(s) were taken. Technologist: Brooke Andino, Technologist Prior study comparison: May 15, 2019, bilateral digital woman screen mammo performed at [facility]. May 10, 2018, bilateral digital woman screen mammo performed at [facility]. FINDINGS: There are scattered fibroglandular densities. There has been no change in the appearance of the mammogram from the prior studies. There is a mild amount of residual fibroglandular tissue which is fairly symmetric. There is no interval development of dominant mass, architectural distortion, or clustered microcalcification suggestive of malignancy. Assessment: BI-RADS/ACR category 1 mammogram. Negative Mammogram. Recommendation Routine screening mammogram in 1 year (for women over age 40). This mammogram was interpreted with the aid of an FDA-approved computer-aided dectection system. Electronically Signed By: Carter Hernandez MD 05/16/20 [id number]
== END ==
LOC: M WHC 09:18
PROVIDERS: ATTEND Family Medicine
DX: Z12.31 Encounter for screening mammogram for malignant neoplasm of breast (principal); Z80.0 Family history of malignant neoplasm of digestive organs

== ENCOUNTER → 2020-05-16 | Outpatient (REF) | payer BC | LOC: M SFHCWAGY 13:30 | PROVIDERS: ATTEND Nurse Practitioner Women's Health | DX: Z12.72 Encounter for screening for malignant neoplasm of vagina (principal); Z85.42 Personal history of malignant neoplasm of other parts of uterus ==

== ENCOUNTER → 2020-06-04 | Outpatient (CLI) | payer SELFPAY | LOC: M LABSMTC 13:55 | PROVIDERS: ATTEND Pediatrics | DX: Z11.59 Encounter for screening for other viral diseases (principal) ==

== ENCOUNTER → 2020-06-18 | Outpatient (REF) | payer BC ==
[2020-06-18 17:39] LABS: APPEARANCE, URINE HAZY (CLEAR); BACTERIA, URINE AUTO NEGATIVE (NEGATIVE); BILIRUBIN, URINE AUTO NEGATIVE (NEGATIVE); BLOOD, URINE BLOOD NEGATIVE (NEGATIVE); COLOR, URINE YELLOW (YELLOW); GLUCOSE, URINE (UA) AUTO NEGATIVE (NEGATIVE); KETONE, URINE AUTO NEGATIVE (NEGATIVE); LEUKOCYTE ESTERASE, URINE AUTO NEGATIVE (NEGATIVE); MUCUS, URINE SMALL (NEGATIVE); NITRITE, URINE AUTO NEGATIVE (NEGATIVE); PROTEIN, URINE AUTO NEGATIVE (NEGATIVE); RBC, URINE AUTO 0 /HPF (0-3); SPECIFIC GRAVITY URINE AUTO 1.025 (1.002-1.035); SQUAMOUS EPITHELIAL CELL UR AU 5 /HPF (0-6); WBC, URINE AUTO 1 /HPF (0-3)
== END ==
LOC: M SMT 16:52
PROVIDERS: ATTEND Nurse Practitioner Family
DX: R32 Unspecified urinary incontinence (principal)

== ENCOUNTER 2020-07-20 16:39 | Emergency (ER) | payer BC ==
[~2020-07-20] VITALS: Ht 152.4 cm; Wt 99.1 kg
[2020-07-20] MEDS ORDERED: NS 1,000 ML IV ONE (17:00)
[2020-07-20] MEDS ORDERED: FAMOTIDINE INJ 20MG/2ML VIAL (S0028 PER 1) IVP ONE (17:00)
[2020-07-20] MEDS ORDERED: methylPREDNISolone 125MG 2ML VIAL IV ONE (17:00)
[2020-07-20] MEDS ORDERED: METF-838 (17:26)
[2020-07-20] MEDS ORDERED: OXYB10TA23 (17:26)
[2020-07-20] MEDS ORDERED: PANT40TA29 (17:26)
[2020-07-20] MEDS ORDERED: ATOR40TA75 (17:26)
[2020-07-20] MEDS ORDERED: TRAZ-252 (17:26)
[2020-07-20 17:45] LABS: BLOOD UREA NITROGEN 15 MG/DL (7-18); CALCIUM LEVEL 8.9 MG/DL (8.5-10.1); CARBON DIOXIDE LEVEL 30 MEQ/L (21-32); CHLORIDE LEVEL 109 MEQ/L (98-107); CREATININE FOR GFR 0.78 MG/DL (0.55-1.30); GLOMERULAR FILTRATION RATE > 60.0 (>58); GLUCOSE, FASTING 85 MG/DL (70-100); POTASSIUM SERUM 4.3 MEQ/L (3.5-5.1); SODIUM LEVEL 143 MEQ/L (136-145)
[2020-07-20 17:56] LABS: BASO # 0.1 10^3/uL (0.0-0.2); BASO % 0.7 % (0.0-1.0); EOS # 0.4 10^3/uL (0.0-0.5); EOS % 5.2 % (0.0-3.0); HEMATOCRIT 39.9 % (36.0-47.0); LYMPH % 13.7 % (24.0-44.0); MEAN CORPUSCULAR HEMOGLOBIN 30.3 pg (27.0-33.0); MEAN CORPUSCULAR HGB CONC 32.6 g/dl (32.0-36.5); MONO # 0.5 10^3/uL (0.0-0.8); MONO % 6.6 % (0.0-5.0); NEUTROPHILS # 5.1 10^3/uL (1.5-8.5); NEUTROPHILS % 73.4 % (36.0-66.0); PLATELET COUNT, AUTOMATED 242 10^3/uL (150-450); RED BLOOD COUNT 4.29 10^6/uL (4.00-5.40)
[2020-07-20] MEDS ORDERED: PRED20TA PO (18:09)
[2020-07-20 18:47] VITALS: BP 140/68
== END 2020-07-20 18:49 | disposition home or self-care (01) ==
LOC: M ED 16:39
DX: R21 Rash and other nonspecific skin eruption (principal); T50.8X5A Adverse effect of diagnostic agents, initial encounter; G47.30 Sleep apnea, unspecified; Z79.84 Long term (current) use of oral hypoglycemic drugs; Z79.899 Other long term (current) drug therapy; Z91.041 Radiographic dye allergy status; Z88.5 Allergy status to narcotic agent; Z85.43 Personal history of malignant neoplasm of ovary
CPT/HCPCS: 80048; 85025; 96374; 96375; 99284; J2930

== ENCOUNTER → 2020-08-05 | Outpatient (CLI) | payer BC ==
[~2020-08-05] MED LIST changes: +ATOR40TA75; +METF-838; +OXYB10TA23; +PANT40TA29; +PRED20TA PO; +TRAZ-252
[2020-08-05 16:26] LABS: BASO # 0.1 10^3/uL (0.0-0.2); BASO % 1.5 % (0.0-1.0); EOS # 0.1 10^3/uL (0.0-0.5); EOS % 1.9 % (0.0-3.0); HEMATOCRIT 38.3 % (36.0-47.0); HEMOGLOBIN 12.2 g/dl (12.0-15.5); LYMPH # 1.3 10^3/uL (1.5-5.0); LYMPH % 27.6 % (24.0-44.0); MEAN CORPUSCULAR HGB CONC 31.9 g/dl (32.0-36.5); MEAN CORPUSCULAR VOLUME 94.3 fl (80.0-96.0); MONO # 0.4 10^3/uL (0.0-0.8); MONO % 9.3 % (0.0-5.0); NEUTROPHILS # 2.8 10^3/uL (1.5-8.5); NEUTROPHILS % 59.5 % (36.0-66.0); PLATELET COUNT, AUTOMATED 216 10^3/uL (150-450); RED BLOOD COUNT 4.06 10^6/uL (4.00-5.40); WHITE BLOOD COUNT 4.6 10^3/uL (4.0-10.0)
[2020-08-05 16:37] LABS: APPEARANCE, URINE CLOUDY (CLEAR); BACTERIA, URINE AUTO NEGATIVE (NEGATIVE); BILIRUBIN, URINE AUTO NEGATIVE (NEGATIVE); BLOOD, URINE BLOOD NEGATIVE (NEGATIVE); COLOR, URINE YELLOW (YELLOW); GLUCOSE, URINE (UA) AUTO NEGATIVE (NEGATIVE); KETONE, URINE AUTO NEGATIVE (NEGATIVE); LEUKOCYTE ESTERASE, URINE AUTO NEGATIVE (NEGATIVE); MUCUS, URINE LARGE (NEGATIVE); NITRITE, URINE AUTO NEGATIVE (NEGATIVE); PROTEIN, URINE AUTO 1+ mg/dL (NEGATIVE); RBC, URINE AUTO 2 /HPF (0-3); SQUAMOUS EPITHELIAL CELL UR AU 7 /HPF (0-6); WBC, URINE AUTO 6 /HPF (0-3)
[2020-08-05 16:40] LABS: INR 0.96
[2020-08-05 16:41] LABS: PARTIAL THROMBOPLASTIN TIME 28.3 SECONDS (24.2-38.5)
[2020-08-05 16:50] LABS: ALBUMIN 4.1 GM/DL (3.2-5.2); ALT/SGPT 47 U/L (12-78); BILIRUBIN,TOTAL 0.6 MG/DL (0.2-1.0); BLOOD UREA NITROGEN 14 MG/DL (7-18); CALCIUM LEVEL 8.9 MG/DL (8.5-10.1); CARBON DIOXIDE LEVEL 30 MEQ/L (21-32); CHLORIDE LEVEL 109 MEQ/L (98-107); CREATININE FOR GFR 0.87 MG/DL (0.55-1.30); GLOMERULAR FILTRATION RATE > 60.0 (>58); GLUCOSE, FASTING 85 MG/DL (70-100); NT-PRO BNP 28 PG/ML (<125); POTASSIUM SERUM 4.2 MEQ/L (3.5-5.1); SODIUM LEVEL 145 MEQ/L (136-145); TOTAL PROTEIN 7.2 GM/DL (6.4-8.2)
== END ==
LOC: M LAB 15:44
PROVIDERS: ATTEND Family Medicine
DX: Z01.818 Encounter for other preprocedural examination (principal)

== ENCOUNTER → 2020-08-07 | Outpatient (REF) | payer BC | LOC: M SFHCPLAZ 16:42 | PROVIDERS: ATTEND Family Medicine | DX: Z01.818 Encounter for other preprocedural examination (principal) ==

== ENCOUNTER → 2020-10-13 | Outpatient (CLI) | payer BC ==
--- NOTE | 2020-10-13 10:30 | REP ---
INDICATION: RUQ PAIN. COMPARISON: None. TECHNIQUE/RADIOTRACER AND DOSE: 6.6 mCi of Technetium-99m mebrofenin was injected and sequential anterior images are acquired. 65 minutes after the mebrofenin injection, the patient consumed 8 ounces Ensure and an additional 60 minutes of imaging was acquired. Regions of interest are plotted around the gallbladder. FINDINGS: The initial hepatocellular parenchymal uptake phase is normal and homogeneous. Intra- and extra-hepatic bile ducts are labeled by the 10-minute image. The gallbladder is first labeled on the 10-minute image. There is normal washout from the liver parenchyma into the gallbladder and small intestine on subsequent images. The gallbladder ejection fraction is 87%. Values greater than 35% are considered normal with this technique. IMPRESSION: Normal hepatobiliary scan and normal gallbladder ejection fraction. <Electronically signed by Martinez Lopez > 10/13/20 [id number]
== END ==
LOC: M RAD 07-18 07:33
PROVIDERS: ATTEND Family Medicine
DX: R10.9 Unspecified abdominal pain (principal)

== ENCOUNTER → 2020-11-13 | Outpatient (REF) | payer BC | LOC: M SFHCWAGY 12:42 | PROVIDERS: ATTEND Nurse Practitioner Women's Health | DX: Z12.72 Encounter for screening for malignant neoplasm of vagina (principal); Z90.710 Acquired absence of both cervix and uterus; Z85.42 Personal history of malignant neoplasm of other parts of uterus ==

== ENCOUNTER → 2021-01-29 | Outpatient (CLI) | payer BC, MEDICAID, OTHER, SELFPAY ==
[~2021-01-29] MED LIST changes: +E-Z-GAS II EFFERVESCENT PACKET (SODIUM BICARB./CITRIC ACID/SIMETHICONE) As Ordered ONE; +E-Z-HD 98% w/w 340GM SUSP BTL As Ordered ONE; +E-Z-PAQUE 96% w/w SUSP 176GM BTL As Ordered ONE; +OMEP40CA4 PO; -OMEP40CA97 PO
[2021-01-29 12:48] LABS: BASO # 0.1 10^3/uL (0.0-0.2); BASO % 1.7 % (0.0-1.0); EOS # 0.1 10^3/uL (0.0-0.5); EOS % 1.7 % (0.0-3.0); HEMOGLOBIN 12.5 g/dl (12.0-15.5); LYMPH # 1.2 10^3/uL (1.5-5.0); LYMPH % 26.6 % (24.0-44.0); MEAN CORPUSCULAR HEMOGLOBIN 28.9 pg (27.0-33.0); MEAN CORPUSCULAR HGB CONC 32.1 g/dl (32.0-36.5); MEAN CORPUSCULAR VOLUME 90.3 fl (80.0-96.0); MONO # 0.3 10^3/uL (0.0-0.8); MONO % 6.5 % (2.0-8.0); NEUTROPHILS # 2.9 10^3/uL (1.5-8.5); NEUTROPHILS % 63.1 % (36.0-66.0); PLATELET COUNT, AUTOMATED 214 10^3/uL (150-450); RED BLOOD COUNT 4.32 10^6/uL (4.00-5.40); WHITE BLOOD COUNT 4.6 10^3/uL (4.0-10.0)
[2021-01-29 13:13] LABS: HEMOGLOBIN A1c 5.3 %
[2021-01-29 13:25] LABS: ALBUMIN 3.7 GM/DL (3.2-5.2); ALT/SGPT 41 U/L (12-78); BILIRUBIN,TOTAL 0.5 MG/DL (0.2-1.0); BLOOD UREA NITROGEN 15 MG/DL (7-18); CALCIUM LEVEL 9.1 MG/DL (8.5-10.1); CARBON DIOXIDE LEVEL 30 MEQ/L (21-32); CHLORIDE LEVEL 108 MEQ/L (98-107); CHOLESTEROL LEVEL 199 MG/DL (<200); CHOLESTEROL RISK RATIO 5.685 (<5); CREATININE FOR GFR 0.65 MG/DL (0.55-1.30); FERRITIN 48 NG/ML (8-252); FREE T4 0.95 NG/DL (0.76-1.46); GLOMERULAR FILTRATION RATE > 60.0 (>51); GLUCOSE, FASTING 78 MG/DL (70-100); HDL CHOLESTEROL 35 MG/DL (>40); LDL CHOLESTEROL 110 MG/DL (<100); NON-HDL-C 164 MG/DL; POTASSIUM SERUM 4.8 MEQ/L (3.5-5.1); PTH INTACT 34.2 PG/ML (18.5-88.0); SODIUM LEVEL 143 MEQ/L (136-145); THYROID STIMULATING HORMONE 0.837 uIU/ML (0.358-3.740); TOTAL 25(OH) VITAMIN D 52.9 NG/ML (30.0-100.0); TOTAL PROTEIN 7.1 GM/DL (6.4-8.2); TRIGLYCERIDES LEVEL 269 MG/DL (<150)
[2021-01-29 13:40] LABS: H PYLORI QUALITATIVE IgG NEGATIVE (NEGATIVE)
--- NOTE | 2021-01-29 17:17 | REP ---
INDICATION: RUQ PAIN. COMPARISON: None. TECHNIQUE: The procedure was performed under the direct supervision of Dr. Hernandez. The images were reviewed with Dr. Hernandez. Liquid barium and gas producing crystals were given in the erect position as well as liquid barium in the prone oblique position in order to perform a double contrast upper GI examination. Additionally liquid barium was given at the end of the examination in order to perform a small bowel follow through. A combination od fluoroscopy, spot films and last image hold technology was utilized, 1.8 minutes of fluoro time was utilized for this procedure. FINDINGS: The stitcher tape controlled machine film shows no organomegaly or pathological masses. The intestinal gas pattern is non-specific. There are fixation screws at L4 and L5 identified. The oral and pharyngeal stages of deglutition are unremarkable. During esophageal transport there are mild tertiary waves demonstrated. There is no esophagitis, stricture, mucosal ring or hiatal hernia. Gastroesophageal reflux is not demonstrated on this examination. The stomach cabrera are normally outlined. The rugal folds are smooth and regular. There is no gastritis neoplasm or ulcer disease. The duodenal cabrera are normally outlined . The mucosal folds are smooth and regular. There is no duodenitis pancreatitis peptic ulcer disease or neoplasm. There is a large descending duodenal diverticulum identified. The visualized portion of the proximal small bowel appears normal in course and caliber. The barium column was followed through the small bowel to the level of the terminal ileum. Small bowel transit time is approximately 90 minutes. During fluoroscopy gentle palpation shows all loops are freely movable and pliable. There are no fixed or angulated loops. The small bowel mucosal pattern is normal in course and caliber. There is no transition to suggest a partial small-bowel obstruction. Spot filming of the terminal ileum shows it to be unremarkable. IMPRESSION: 1. Mild tertiary waves. 2. There is a large descending duodenal diverticulum identified. . <Electronically signed by Puma Sanchez > 01/29/21 1518 <Electronically signed by Carter Hernandez > 01/29/21 [id number]
== END ==
LOC: M RAD 09:25
PROVIDERS: ATTEND Family Medicine
DX: R10.11 Right upper quadrant pain (principal)

== ENCOUNTER → 2021-05-19 | Outpatient (CLI) | payer BC ==
[~2021-05-19] MED LIST changes: -E-Z-GAS II EFFERVESCENT PACKET (SODIUM BICARB./CITRIC ACID/SIMETHICONE) As Ordered ONE; -E-Z-HD 98% w/w 340GM SUSP BTL As Ordered ONE; -E-Z-PAQUE 96% w/w SUSP 176GM BTL As Ordered ONE
--- NOTE | 2021-05-19 16:40 | REPMRS ---
Patient History The patient states she had a clinical breast exam in April 2021. Family history of pancreatic cancer at age 73 in mother. Took progesterone for 2 years. Tomosynthesis is performed. Volpara breast density is a. [facility] lifetime risk of breast cancer 8.5%. Patient states no breast complaints today. Patient has signed MRS History Sheet. Digital Woman Screen Mammo: May 19, 2021 - Exam #: [id number] Bilateral CC and MLO view(s) were taken. Technologist: Annetta Steven, Technologist Prior study comparison: May 16, 2020, bilateral digital woman screen mammo performed at [facility]. May 15, 2019, bilateral digital woman screen mammo performed at [facility]. FINDINGS: There are scattered fibroglandular densities. There has been no change in the appearance of the mammogram from the prior studies. There is a mild amount of residual fibroglandular tissue which is fairly symmetric. There is no interval development of dominant mass, architectural distortion, or clustered microcalcification suggestive of malignancy. Assessment: BI-RADS/ACR category 1 mammogram. Negative Mammogram. Recommendation Routine screening mammogram in 1 year (for women over age 40). This mammogram was interpreted with the aid of an FDA-approved computer-aided dectection system. Electronically Signed By: Carter Hernandez MD 05/19/21 1640
== END ==
LOC: M WHC 14:35
PROVIDERS: ATTEND Nurse Practitioner Women's Health
DX: Z12.31 Encounter for screening mammogram for malignant neoplasm of breast (principal)

== ENCOUNTER → 2021-05-19 | Outpatient (REF) | payer BC, OTHER ==
[~2021-05-19] MED LIST changes: +CETI-24; +ECOT81TA5 PO; +ERGO500029; +GABA-282; +THERTAB52 PO
== END ==
LOC: M SFHCWAGY 17:18
PROVIDERS: ATTEND Nurse Practitioner Women's Health
DX: Z12.4 Encounter for screening for malignant neoplasm of cervix (principal); Z01.419 Encounter for gynecological examination (general) (routine) without abnormal findings

== ENCOUNTER → 2021-05-27 | Outpatient (CLI) | payer BC, OTHER | LOC: M WHC 07:50 | PROVIDERS: ATTEND Family Medicine | DX: M85.9 Disorder of bone density and structure, unspecified (principal); E28.39 Other primary ovarian failure ==

== ENCOUNTER → 2021-06-01 | Outpatient (CLI) | payer OTHER | LOC: M LABSMTC 11:07 | PROVIDERS: ATTEND Anesthesiology | DX: Z01.812 Encounter for preprocedural laboratory examination (principal); Z20.822 Contact with and (suspected) exposure to COVID-19 ==

== ENCOUNTER 2021-06-05 06:51 | Day surgery (SDC) | payer OTHER ==
[~2021-06-05] VITALS: Ht 152.4 cm; Wt 106.6 kg
[~2021-06-05 06:51] MED LIST changes: +NS 1,000 ML IV ONE
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
--- OUTSIDE RECORDS SUMMARY | 2021-06-05 06:55 | CCD | Continuity of Care Document ---
Author Author Annetta QUEVEDO Organization Unknown Address [address] [facility], [place] [address] Phone [phone] Care Team Providers Care Forge Shop Supervisor Name Role Phone Asad Coats MD AUTM [phone] Nixon Naylor MD AUTM [phone] Wolfgang Leal MD AUTM [phone] Ray Thrasher MD AUTM [phone] Benji Soto MD AUTM [phone] Quirino Mcgowan MD AUTM [phone] Problems Active Problems Provider Date Electrocardiogram abnormal Wolfgang Leal MD Onset: 2013 Aortic valve disorder Wolfgang Leal MD Onset: 04/18/2014 Dissection of thoracic aorta Wolfgang Leal MD Onset: 03/28 Obesity Wolfgang Leal MD Onset: 04/18/2014 Pure hypercholesterolemia Wolfgang Leal MD Onset: 014 Essential hypertension MARIZOL New Onset: 8 Obstructive sleep apnea syndrome MARIZOL New Onset: 09/14/2017 Mixed hyperlipidemia MARIZOL New Onset: 09/14/2017 Dietary management surveillance MARIZOL New Onset: 09/14/2017 Abdominal aortic aneurysm without rupture MARIZOL New Onset: 09/14/2017 Preoperative cardiovascular examination MARIZOL New Onset: 04/19/2018 Social History Type Date Description Comments Sex Unknown ETOH Use Consumes Alcohol 8-10 drinks wee kly Tobacco Use Start: Unknown End: Unknown Patient is a former smoker HX of 25 yrs 1ppd quit 07/2011 Smoking Status Reviewed: 08/07/20 Patient is a former smoker HX of 25 yrs 1ppd quit 07/2011 Exercise Type/Frequency Walks daily Exercise Type/Frequency Does housework daily Exercise Type/Frequency Eliptical [place] 2-3x w eekly Exercise Limitations Back Pain Exercise Limitations Orthopedic Problem Allergies and adverse reactions Active Allergies Criticality Reaction | Severity Comments Date Dye Unable to assess criticality Urticaria | Moderate CT D ye 10/21/2015 Morphine Unable to assess criticality Nausea and Vomiting 11/16/2016 Inactive Allergies NKDA Unable to assess criticality 04/18/2014 Medications Active Medications SIG Qnty Indications Ordering Provide r Date Multivitamin Women Tablets 1 by mouth every day Unknown 08/06/[address]ir[address] 1 by mouth every day Asad Coats MD 01/02/2020 Pantoprazole Sodium 20mg Tablets D R 1 by mouth once a day Asad Coats MD 01/02/2020 Metformin HCL 500mg Tablets 2 by mouth daily Unknown 11/02/2018 Atorvastatin Calcium 40mg Tablets 1 by mouth every night at bedtime Asad Coats MD Vitamin D (Ergocalciferol) [id number] Capsules 1 by mouth every weekly Asad Coats MD 1 Immunizations Description No Information Available Vital Signs Date Vital Result Comment 08/07/2020 1:12pm Weight 212.00 lb Home Weight 211lb Height 60 inches 5'0" BMI (Body Mass Index) 41.4 kg/m2 Heart Rate 75 /min 01/03/2020 2:54pm Weight 216.00 lb Home Weight 214lb Height 60 inches 5'0" BMI (Body Mass Index) 42.2 kg/m2 Heart Rate 104 /min BP Systolic Sitting 122 mmHg large cuff,Ra BP Diastolic Sitting 82 mmHg large cuff,Ra Results Description No Information Available Procedures Date Code Description Status 05/28/2021 52109 Echocardiogram 2-D Doppler Color Completed Medical Devices Description No Information Available Encounters Description No Information Available Assessments Date Code Description Provider 05/28/2021 I35.1 Nonrheumatic aortic (valve) insu fficiency ECHO Plan of Treatment Future Appointment(s):* 08/07/2021 3:00 pm - MARIZOL Flores at Main Office 08/07/2020 - MARIZOL Flores* Z01.810 Encounter for preprocedural cardiovascular examination* Recommendations:* Patient has cardiac clearance to undergo the scheduled posterior L4-S1 decompression with Dr. Mcgowan * I10 Essential (primary) hypertension* Recommendations:* Advised patient to please monitor blood pressures at home and to alert our office for readings > 140/>90 * I71.01 Dissection of thoracic aorta* Recommendations:* Plan for repeat echocardiogram in 2021 * I35.1 Nonrheumatic aortic (valve) insufficiency* Recommendations:* Plan for repeat echocardiogram in 2021 * G47.33 Obstructive sleep apnea (adult) (pediatric)* Recommendations:* Reinforced the consistent use of CPAP will assist in blood pressure reduction and promote nocturnal blood pressure dipping patterns. Negative effects of hypoxia during sleep were reviewed including impaired daytime cognition and level of alertness. * R94.31 Abnormal electrocardiogram [ECG] [EKG]* Recommendations:* No further evaluation is needed at this time. * E66.8 Other obesity* Recommendations:* Recommended for patient to follow a more whole food diet. Advised patient to avoid overly processed foods and packaged foods. Advised patient to avoid sodas, juices and other liquid calories. Recommended at least 30 minutes of exercise 3 days a week. * Z71.3 Dietary counseling and surveillance* Recommendations:* Recommended for patient to follow a more whole food diet. Advised patient to avoid overly processed foods and packaged foods. Advised patient to avoid sodas, juices and other liquid calories. Recommended at least 30 minutes of exercise 3 days a week. * All * Follow up:* Follow up in 1 year Functional Status Functional Condition Comment Date Status Independent with all ADL's Activ e Mental Status Description No Information Available Referrals Description No Information Available
--- OUTSIDE RECORDS SUMMARY | 2021-06-05 06:55 | CCD | Continuity of Care Document ---
Author Author Annetta QUEVEDO Organization Unknown Address [address] [facility], [place] [address] Phone [phone] Care Team Providers Care Screen Printer Helper Name Role Phone Asad Coats MD AUTM [phone] Nixon Naylor MD AUTM [phone] Wolfgang Leal MD AUTM [phone] Ray Thrasher MD AUTM [phone] Benji Soto MD AUTM [phone] Quirino Mcgowan MD AUTM [phone] Sisi Healy PA-C AUTM [phone] Problems Active Problems Provider Date Electrocardiogram abnormal [...] ETOH Use Consumes Alcohol 8-10 drinks wee nadir Tobacco Use Start: Unknown End: Unknown Patient is a former smoker HX of 25 yrs 1ppd quit 07/2011 Smoking Status Reviewed: 08/07/20 Patient is a former smoker HX of 25 yrs 1ppd quit 07/2011 Exercise Type/Frequency Walks daily Exercise Type/Frequency Does housework daily Exercise Type/Frequency Eliptical [place] Smoker 2-3x w eekly Exercise Limitations Back Pain [...] bedtime Asad Coats MD Vitamin D (Ergocalciferol) 76080Qdfk Capsules 1 by mouth every weekly Asad [...] Available Procedures Date Code Description Status 05/28/2021 79730 Echocardiogram 2-D Doppler Color Completed Medical Devices [...]
--- OUTSIDE RECORDS SUMMARY | 2021-06-05 06:56 | CCD | Continuity of Care Document ---
Author Author Annetta DOMINGUEZ [facility] Organization Unknown Address [address], [address] [place] [address] Phone [phone] Care Team Providers Care Molding Line Assistant Name Role Phone Asad Coats M.D. AUTM [phone] Problems Active Problems Provider Date Iron deficiency anemia Cedric Mckay MD Onset: 01/26/2016 Angiodysplasia of duodenum Cedric Mckay MD Onset: 2015 Benign neoplasm of colon Cedric Mckay MD Onset: 01/26/20 16 Other hemorrhoids Cedric Mckay MD Onset: 01/26/2016 Obstructive sleep apnea syndrome CHECO Zamudio Onset: 06/11/2020 Social History Type Date Description Comments Sex Unknown ETOH Use 1-2 A Week Tobacco Use Start: Unknown Non Smoker Tobacco Use Start: Unknown Quit 2011 Smoking Status Reviewed: 06/11/20 Quit 2011 Allergies, Adverse Reactions, Alerts Active Allergies Criticality Reaction | Severity Comments Date Contrast Dye Unable to assess criticality 05/21/2015 Iodinated Diagnostic Agents Unable to assess criticality 06/08/2020 Morphine Unable to assess criticality 06/08/2020 Medications Active Medications SIG Qnty Indications Ordering Provide r Date Miralax 17GM/Scoop Powder use as instructed by doctor for bowel prep 510gm Z12.11 Cedric Mckay MD 02/27/2021 Milk Of Magnesia 1200mg/15ML Suspe nsion take 45 milliliters by mouth as directed on colonoscopy prep sheet. Z12.11 Cedric Mckay MD 02/27/2021 Vitamin D (Ergocalciferol) 64907Yyoe Capsules 1 cap by mouth once a week 3caps Unknown 0 Pantoprazole Sodium 40mg Tablets DR bid Unknown CPAP Device 9 cm Mar[place] Unknown Atorvastatin Calcium 40mg Tablets 1 tab by mouth every day Unknown Metformin HCL 500mg Tablets 1 tab by mouth every day Unknown Oxybutynin Chloride ER 10mg Tablets ER 24HR 1 by mouth every day Unknown Gabapentin 300mg Capsules 1 tab by mouth twice a day Unknown Immunizations CPT Code Status Date Vaccine Lot # [id number] Given 04/29/2016 Influenza Virus Split 3 Yrs And Above For Intramuscular Use Vital Signs Date Vital Result Comment 02/27/2021 9:25am BP Systolic 132 mmHg BP Diastolic 88 mmHg Height 60 inches 5'0" Weight 223.00 lb BMI (Body Mass Index) 43.5 kg/m2 [place] Body Weight 100 lb Weight 101.153 kg BSA (Body Surface Area) 1.95 m2 06/11/2020 1:21pm BP Systolic 126 mmHg BP Diastolic 72 mmHg Heart Rate 108 /min O2 % BldC Oximetry 95 % Body Temperature 96.5 F Height 60 inches 5'0" Weight 218.12 lb BMI (Body Mass Index) 42.6 kg/m2 [place] Body Weight 100 lb Weight 98.942 kg BSA (Body Surface Area) 1.94 m2 Results Description No Information Available Procedures Date Code Description Status 02/27/2021 79159 Office/Outpatient Established Mo d MDM 30-39 Min Completed Medical Devices Description No Information Available Encounters Type Date Location Provider Dx Diagnosis Office Visit 02/27/2021 9:30a [facility] GEOVANY Lora R10.13 Epigastric pain R10.11 Right upper quadrant pain K21.9 Gastro-esophageal reflux dis ease without esophagitis Z12.11 Encounter for screening for malignant neoplasm of colon Assessments Date Code Description Provider 02/27/2021 R10.13 Epigastric pain Tali Whitfield GEOVANY Vasquez 02/27/2021 R10.11 Right upper quadrant pain Estheriss a Nahid GEOVANY Dominguez 02/27/2021 K21.9 Gastro-esophageal reflux disease without esophagitis Tali A GEOVANY Dominguez 02/27/2021 Z12.11 Encounter for screening for nelsy gnant neoplasm of colon GEOVANY Lora Plan of Treatment Future Appointment(s):* 06/02/2021 3:30 pm - Yanet Langston ANP at [facility] Pulmonary/Thoracic 02/27/2021 - Tali Dominguez RPA-Thai* R10.13 Epigastric pain * R10.11 Right upper quadrant pain * K21.9 Gastro-esophageal reflux disease without esophagitis * Z12.11 Encounter for screening for malignant neoplasm of colon * * New Orders:* Endoscopy, Ordered: 02/27/21 * Comments:* Will arrange for upper endoscopy and colonoscopy. Reviewed risks and benefits of the procedures, as well as other options, with the patient. Prep for this procedure was discussed with patient, including risks and side effects associated with the prep. Patient verbalized understanding of all of the above and is in agreement to proceed. Patient will seek medical attention for any acute changes. Will monitor. * Follow up:* As scheduled, sooner if needed. Functional Status Description No Information Available Mental Status Description No Information Available Referrals Refer to Dr Reason for Referral Status Appt Date Cedric Mckay M.D. R10.11-RIGHT UPPER QUADRANT PAIN Scheduled 02/27/2021 [facility], Gastroenterology [address] [place] [address], [address] [id number] [phone] Cedric Mckay M.D. RUQ PAIN Scheduled 03/03/2021 [facility], Gastroenterology [address] [place] [address], [address] [id number] [phone]
--- OUTSIDE RECORDS SUMMARY | 2021-06-05 06:56 | CCD ---
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 A ctive confirmed 01682951 Problem DJD (degenerative joint disease), cervical M50.30 Active confirmed 70670452 Problem DJD (degenerative joint disease), lumbar M47.816 Active confirmed 100128147 Problem Breast cancer screening Z12.39 Active confirmed 260442527 Problem Renal cyst N28.1 Active confirmed 84123522 Problem PENELOPE (obstructive sleep apnea) G47.33 Active confirm ed 75235108 Problem Personal history of malignant neoplasm of uterus Z 85.42 Active confirmed 181903487 Problem Nonrheumatic aortic valve insufficiency I35.1 Active confirmed 79480968 Problem IFG (impaired fasting glucose) R73.01 Active confir med 496990167 Problem Psychophysiological insomnia F51.04 Active confirme d 531158409 Problem Obesity E66.9 Active confirmed 582340785 Problem Mixed hyperlipidemia E78.2 Active confirmed 785873879 Problem Estrogen deficiency E28.39 Active confirmed 852539639 Problem Endometrial cancer C54.1 Active confirmed 1 91768814 Problem Mixed incontinence N39.46 Active confirmed 4 92802087 Problem Vitamin D deficiency, unspecified E55.9 Active con firmed 27910276 Problem Dyspepsia R10.13 Active confirmed 846648047 Problem 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.710 Active confirmed 442419615 Problem Urinary incontinence inappropriate for age R32 Active confirmed 153230027 Problem OAB (overactive bladder) N32.81 Active confirmed 273337085 ALLERGIES Allergen (clinical drug ingredient) Drug/Non Drug Allergy do cumented on EMR Reaction Allergy Type Onset Date Status IV Dye rash, itching Non Drug Allergy Activ e morphine Morphine Sulfate([facility] Code:[address]-40) Nausea/Vomiti ng Drug Allergy Active Latex Latex latex risk Drug Allergy Inactive ENCOUNTERS from 1970 to 2021-05-20 Encounter Location Date Provider Diagnosis [facility] [address] [phone] [place] [address] Apr, Shasta Delgadoc Routine gynecologica l examination Z01.419 ; Cervical cancer screening Z12.4 ; Endometrial cancer C54.1 and Personal history of malignant neoplasm of uterus Z85.42 IMMUNIZATIONS Vaccine Route Administration Date Status Influenza [...] School Language: Question Answer Notes Languages spoken: [place] Leonean Quaker: Question Answer Notes Quaker No judaism beliefs that would impact health care. Sexual [...] FOR REFERRAL No Information VITAL SIGNS Weight 238.2 lbs Apr, Weight-kg 108.05 kg Apr, Height 61.5 in Apr, BMI 44.27 kg/m2 Apr, Blood pressure systolic 128 mm Hg Apr, Blood pressure diastolic 82 mm Hg Apr, MEDICATIONS Medication SIG (Take, Route, Frequency, Duration) Notes Start Da te End Date Status Aspir-81 81 MG 1 tablet Once a day A ctive Atorvastatin Calcium 40 MG TAKE ONE TABLET BY MOUTH ON CE A DAY orally Daily for 90 days Active Ergocalciferol 47155 UNIT 1 capsule Orally once a week [...] Information RESULTS No Results REASON FOR VISIT ANNUAL/MAMMO MEDICAL (GENERAL) HISTORY Type Description Date Medical [...] History GAVE-diagnosed 07/2015 by EGD; normal EGD 01/2016-[facility] Medical History multiple hyperplastic polyps by 07/2015 c sandrine-Woody Medical History PENELOPE-09/2015 HST c ALIZE 10, [...] with him 2006 Surgical History AVR - [facility] Surgical History R wrist repair Surgical History L ankle repair Surgical History Jaw repair with metal plate Surgical History BTL Surgical History L shoulder arthroscopic, acr omioplasty, clavicle kodjquyhi-Zhmehgfyyp-Hlgwoom 04/23/14 Surgical History colonoscopy and EGD Dr. Mckay @ [facility] Surgical History ulnar release left-Dr. Watts 11/10/15 Surgical History partial hysteroctomy-Dr. Sebastian-[facility] Surgical History laproscopic SO c pelvic LND/washings-Katie lson 11/26/16 Surgical History Nerve release left wrist 04/27/18 Surgical History L4-S1 PDF-[place] 08/12/20 Hospitalization History surgery Goals Section No Information Health Concerns No Information MEDICAL EQUIPMENT No Information MENTAL STATUS No Information FUNCTIONAL STATUS No Information ASSESSMENTS Encounter Date Diagnosis Assessment Notes Treatment Notes Treatm ent Clinical Notes Apr, Routine gynecological examination (ICD-10 - Z01. 419) pt can now have yearly paps for endometrial ca surveillance (was q3m then q6m) Apr, Cervical cancer screening (ICD-10 - Z12.4) Apr, Endometrial cancer (ICD-10 - C54.1) Apr, Personal history of malignant neoplasm o f uterus (ICD-10 - Z85.42) PLAN OF TREATMENT Treatment Notes Assessment Notes Clinical Notes Routine gynecological examination pt can now have yearly paps for endometrial ca surveillance (was q3m then q6m) Pending Tests Test Name Order Date PAP REQUEST FOR SERVICE 2021-05-19 Next Appt Details 1 Year Reason:annual/mammo Provider Name:Asad Coats, 2021-10-12 1 1:15:00 AM, [address], , [place], [address], Follow Up:1 Yearannual/mammo Insurance Providers Payer Name Payer Address Payer Phone Insured Name Patient Relati onship to Insured Coverage Start Date Coverage End Date [facility] [employer] [facility] [address] [facility] [phone] [phone] MAVERICK SOLORZANO self
--- OUTSIDE RECORDS SUMMARY | 2021-06-05 06:56 | CCD ---
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 A ctive confirmed 07307471 Problem DJD (degenerative joint disease), cervical M50.30 Active confirmed 18627618 Problem DJD (degenerative joint disease), lumbar M47.816 Active confirmed 600014432 Problem Breast cancer screening Z12.39 Active confirmed 130564919 Problem Renal cyst N28.1 Active confirmed 20329080 Problem PENELOPE (obstructive sleep apnea) G47.33 Active confirm ed 42572792 Problem Personal history of malignant neoplasm of uterus Z 85.42 Active confirmed 150752177 Problem Nonrheumatic aortic valve insufficiency I35.1 Active confirmed 00094836 Problem IFG (impaired fasting glucose) R73.01 Active confir med 002343578 Problem Psychophysiological insomnia F51.04 Active confirme d 890890446 Problem Obesity E66.9 Active confirmed 432769350 Problem Mixed hyperlipidemia E78.2 Active confirmed 670776009 Problem Estrogen deficiency E28.39 Active confirmed 922220367 Problem Endometrial cancer C54.1 Active confirmed 1 60829236 Problem Mixed incontinence N39.46 Active confirmed 4 07278201 Problem Vitamin D deficiency, unspecified E55.9 Active con firmed 68647071 Problem Dyspepsia R10.13 Active confirmed 859798814 Problem 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.710 Active confirmed 833289657 Problem Urinary incontinence inappropriate for age R32 Active confirmed 269883605 Problem OAB (overactive bladder) N32.81 Active confirmed 081998606 ALLERGIES Allergen (clinical drug ingredient) Drug/Non Drug Allergy do cumented on EMR Reaction Allergy Type Onset Date Status morphine Morphine Sulfate([facility] Code:[address]-13) Nausea/Vomiti ng Drug Allergy Active IV Dye rash, itching Drug Allergy Active Latex Latex latex risk Drug Allergy Inactive ENCOUNTERS from 1970 to 2021-04-23 Encounter Location Date Provider Diagnosis [facility] [address] [facility] [phone] [place] [address] Mar, Asad Coats IMMUNIZATIONS Vaccine Route Administration Date Status Influenza [...] School Language: Question Answer Notes Languages spoken: Persian Baptism: Question Answer Notes Baptism No yazidi beliefs that would impact health care. Sexual [...] REASON FOR REFERRAL No Information VITAL SIGNS No information MEDICATIONS Medication SIG (Take, Route, Frequency, Duration) Notes Start Da te End Date Status metFORMIN HCl ER 500 MG 2 tabs Orally AC dinner for 90 Active Atorvastatin Calcium 40 MG TAKE ONE TABLET BY MOUTH ON CE A DAY orally Daily for 90 days Active Cetirizine HCl 10 MG 1 tablet Orally Once a day for 30 day(s) Mar, Active Pantoprazole Sodium 40 MG 1 tablet orally bid for 90 day(s) Active Ergocalciferol 05010 UNIT 1 capsule Orally once a week for 90 day(s) Active Aspir-81 81 MG 1 tablet Once a day A ctive Oxybutynin Chloride ER 10 MG 1 tablet Orally Once a day for 30 Days Active Multivital Active PROCEDURES No Information RESULTS No Results REASON FOR VISIT Prescription MEDICAL (GENERAL) HISTORY Type Description Date Medical [...] History GAVE[facility] 07[facility]; [facility] multiple hyperplastic polyps by 07/2015 c olon-[facility] Medical History PENELOPE-09/2015 HST c ALIZE 10, SaO2 to 76%-Re chlin Medical History endometrial cancer, FIGO gra de -09/2016 incidentally detected during TVH by Sebastian done 2 menorrhagia s/p lap BSO 11/2016-Charles nassar grade 1 endometrioid adenoCa in fallopian tube Medical History NAFLD-diffuse fatty liver by 11/2018 Surgical History L4 - S1 laminectomy/ fusion - Dr Mcgowan, continues to follow with him 2006 Surgical History AVR - [facility] Surgical History R wrist repair Surgical History L ankle repair Surgical History Jaw repair with metal plate Surgical History BTL Surgical History L shoulder arthroscopic, acr omioplasty, clavicle nmtdhhyqw-Hkaxzdgrtb-Rycsccv 04/23/14 Surgical History colonoscopy and EGD Dr[facility] [place]ck[place] [facility] Surgical History ulnar release left-Dr. Watts 11/10/15 Surgical History partial hysteroctomy-[facility] Sebastian[facility] Surgical History laproscopic SO c pelvic LND/washings-Katie lson 11/26/16 Surgical History Nerve release left wrist 04/27/18 Surgical History L4-S1 PDF-Sun 08/12/20 Hospitalization History surgery Goals Section No Information Health Concerns No Information MEDICAL EQUIPMENT No Information MENTAL STATUS No Information FUNCTIONAL STATUS No Information ASSESSMENTS No Information PLAN OF TREATMENT Medication Medication Name Sig Start Date Stop Date Ergocalciferol 30221 UNIT 1 capsule Orally once a week for 90 da y(s) metFORMIN HCl ER 500 MG 2 tabs Orally AC dinner for 90 Cetirizine HCl 10 MG 1 tablet Orally Once a day for 30 day(s) Mar, Oxybutynin Chloride ER 10 MG 1 tablet Orally Once a day for 30 D ays Pantoprazole Sodium 40 MG 1 tablet orally bid for 90 day(s) Atorvastatin Calcium 40 MG TAKE ONE TABLET BY MOUTH ON CE A DAY orally Daily for 90 days Next Appt Details Provider Name:Asad Coats, 2021-05-18 0 5:00:00 PM, [address] [place] [address], , [place], [address], Provider Name:Shasta Olson, 2021-05-19 03:00:00 PM, [address] [place] [address], , [place], [address], Insurance Providers Payer Name Payer Address Payer Phone Insured Name Patient Relati onship to Insured Coverage Start Date Coverage End Date [facility] [employer] [facility] [address] [facility] [phone] MAVERICK SOLORZANO self
--- OUTSIDE RECORDS SUMMARY | 2021-06-05 06:56 | CCD ---
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 Chief Name Role Phone Asad Coats Unavailable PROBLEMS Type Condition ICD9-CM Code DPM02-WA Code Onset Dates Condition S tatus W/U Status Risk SNOMED Code Notes Problem Iron deficiency anemia D50.9 Active confirmed 32750492 Problem Hypertension I10 Active confirmed 8511818 3 Problem GAVE (gastric antral vascular ectasia) K31.819 A ctive confirmed 59498661 Problem DJD (degenerative joint disease), cervical M50.30 Active confirmed 27758128 Problem DJD (degenerative joint disease), lumbar M47.816 Active confirmed 383134508 Problem Breast cancer screening Z12.39 Active confirmed 096013350 Problem Renal cyst N28.1 Active confirmed 01294285 Problem PENELOPE (obstructive sleep apnea) G47.33 Active confirm ed 75953601 Problem Personal history of malignant neoplasm of uterus Z 85.42 Active confirmed 027618245 Problem Nonrheumatic aortic valve insufficiency I35.1 Active confirmed 71204187 Problem IFG (impaired fasting glucose) R73.01 Active confir med 459441831 Problem Psychophysiological insomnia F51.04 Active confirme d 873664552 Problem Obesity E66.9 Active confirmed 187292903 Problem Mixed hyperlipidemia E78.2 Active confirmed 089732272 Problem Estrogen deficiency E28.39 Active confirmed 183751709 Problem Endometrial cancer C54.1 Active confirmed 1 95206973 Problem Mixed incontinence N39.46 Active confirmed 4 92994589 Problem Vitamin D deficiency, unspecified E55.9 Active con firmed 88115221 Problem Dyspepsia R10.13 Active confirmed 470434010 Problem 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.710 Active confirmed 750730278 Problem Urinary incontinence inappropriate for age R32 Active confirmed 451932223 Problem OAB (overactive bladder) N32.81 Active confirmed 833215029 ALLERGIES Allergen (clinical drug ingredient) Drug/Non Drug Allergy do cumented on EMR Reaction Allergy Type Onset Date Status morphine Morphine Sulfate([facility] Code:[address]-81) Nausea/Vomiti ng Drug Allergy Active IV Dye rash, itching Drug Allergy Active Latex Latex latex risk Drug Allergy Inactive ENCOUNTERS from 1970 to 2021-05-08 Encounter Location Date Provider Diagnosis [facility] [phone] [place] [address] Apr, sAad Coats PENELOPE (obstructive sleep apnea ) G47.33 IMMUNIZATIONS Vaccine Route Administration Date Status Influenza [...] School Language: Question Answer Notes Languages spoken: Greenlandic Christian: Question Answer Notes Christian No tenriism beliefs that would impact health care. Sexual [...] last smoked? 5-10 years REASON FOR REFERRAL from 1970 to 2021-05-08 Reason rx Diagnosis 1 PENELOPE (obstructive sleep apnea ) (G47.33) Referral Organization [facility] Viviane Referring Provider First Name Asad Referring Provider Last Name Jorge L Referring Provider Specialty Family Medicine Referred Provider Cedric Ashton Referral Priority Routine General Notes Tamar Quiroga 05/07/2021 2: 21:16 PM > referral ID# [id number]. Scanned into chart and faxed to office. VITAL SIGNS No information MEDICATIONS Medication SIG [...] orally bid for 90 day(s) Active Ergocalciferol 15834 UNIT 1 capsule Orally once a week for 90 day(s) Active Aspir-81 81 MG 1 tablet Once a day A ctive Oxybutynin Chloride ER 10 MG 1 tablet Orally Once a day for 30 Days Active Multivital Active PROCEDURES No Information RESULTS No Results REASON FOR VISIT Referral MEDICAL (GENERAL) HISTORY Type Description Date Medical [...] Medical History multiple hyperplastic polyps by 07/2015 cesario Almanza Medical History PENELOPE-09/2015 HST c ALIZE 10, SaO2 to 76%-Re chlin Medical History endometrial cancer, FIGO gra de -09/2016 incidentally detected during TVH by Jaz done 2 menorrhagia s/p lap BSO 11/2016-Charles nassar grade 1 endometrioid adenoCa in fallopian tube Medical History NAFLD-diffuse fatty liver by 11/2018 [place] Surgical History L4 - S1 laminectomy/ fusion - Dr Mcgowan, continues to follow with him 2006 Surgical History AVR - [facility] Surgical History R wrist repair Surgical History L ankle repair Surgical History Jaw repair with metal plate Surgical History BTL Surgical History L shoulder arthroscopic, acr omioplasty, clavicle gsacaxemu-Rawmdbcjch-Rhmjsur 04/23/14 Surgical History colonoscopy and EGD Dr. Mckay @ [facility] Surgical History ulnar release left-Dr. Watts 11/10/15 Surgical History partial hysteroctomy-Dr. Sebastian-[facility] Surgical History laproscopic SO c pelvic LND/washings-Katie lson 11/26/16 Surgical History Nerve release left wrist 04/27/18 Surgical History L4-S1 PDF-[place] 08/12/20 Hospitalization History surgery Goals Section No Information Health Concerns No Information MEDICAL EQUIPMENT No Information MENTAL STATUS No Information FUNCTIONAL STATUS No Information ASSESSMENTS Encounter Date Diagnosis Assessment Notes Treatment Notes Treatm ent Clinical Notes Apr, PENELOPE (obstructive sleep apnea) (ICD-10 - G47.33) PLAN OF TREATMENT Medication Medication Name Sig Start Date Stop Date Ergocalciferol 56063 UNIT 1 capsule Orally once a week [...] A DAY orally Daily for 90 days Referrals Referral Date Details anthony, Cedric Ashton Next Appt Details Provider Name:Asad Coats, 2021-05-18 0 5:00:00 PM, [facility], , [place], [address], Provider Name:Shasta Olson, 2021-05-19 03:00:00 PM, [facility], , [place], [address], Insurance Providers Payer Name Payer Address Payer Phone Insured Name Patient Relati onship to Insured Coverage Start Date Coverage End Date [facility] [address] [place] [facility] [id number] MAVERICK SOLORZANO self
--- OUTSIDE RECORDS SUMMARY | 2021-06-05 06:57 | CCD ---
Author Author [facility] Organization [facility] Address Unknown Phone Unavailable Care Team Providers Care Database Reporting Consultant Name Role Phone Charlebois, A Tali RPA C Unavailable Unavailable Charlebois, A Tali RPA C Unavailable Unavailable Charlebois, A Tali RPA C Unavailable Unavailable Charlebois, A Tali RPA C Unavailable Unavailable Charlebois, A Tali RPA C Unavailable Unavailable Charlebois, A Tali RPA C Unavailable Unavailable Charlebois, A Tali RPA C Unavailable Unavailable Charlebois, A Tali RPA C Unavailable Unavailable Charlebois, A Tali RPA C Unavailable Unavailable Charlebois, A Tali RPA C Unavailable Unavailable Charlebois, A Tali RPA C Unavailable Unavailable Charlebois, A Tali RPA C Unavailable Unavailable Charlebois, A Tali RPA C Unavailable Unavailable Charlebois, A Tali RPA C Unavailable Unavailable Charlebois, A Tali RPA C Unavailable Unavailable Charlebois, A Tali RPA C Unavailable Unavailable Charlebois, A Tali RPA C Unavailable Unavailable Charlebois, A Tali RPA C Unavailable Unavailable Charlebois, A Tali RPA C Unavailable Unavailable Charlebois, A Tali RPA C Unavailable Unavailable Charlebois, A Tali RPA C Unavailable Unavailable Charlebois, A Tali RPA C Unavailable Unavailable Charlebois, A Tali RPA C Unavailable Unavailable Charlebois, A Tali RPA C Unavailable Unavailable Charlebois, A Tali RPA C Unavailable Unavailable Charlebois, A Tali RPA C Unavailable Unavailable Charlebois, A Tali RPA C Unavailable Unavailable Charlebois, A Tali RPA C Unavailable Unavailable Charlebois, A Tali RPA C Unavailable Unavailable Charlebois, A Tali RPA C Unavailable Unavailable Charlebois, A Tali RPA C Unavailable Unavailable Charlebois, A Tali RPA C Unavailable Unavailable Charlebois, A Tali RPA C Unavailable Unavailable Gomez, A Jennifer PA-C Unavailable Unavailable Gomez, A Jennifer PA-C Unavailable Unavailable Amee GORDON MD Unavailable Unavailable Amee GORDON MD Unavailable Unavailable Amee GORDON MD Unavailable Unavailable Amee GORDON MD Unavailable Unavailable Amee GORDON MD Unavailable Unavailable Amee GORDON MD Unavailable Unavailable Amee GORDON MD Unavailable Unavailable Amee GORDON MD Unavailable Unavailable Amee GORDON MD Unavailable Unavailable Amee GORDON AMLYUBOV MD Unavailable Unavailable ZACEPA, JEISON Unavailable Unavailable Matthew Coats MD Unavailable Unavailable Matthew Coats MD Unavailable Unavailable Matthew Coats MD Unavailable Unavailable Matthew Coast MD Unavailable Unavailable Matthew Coats MD Unavailable Unavailable Matthew Coats MD Unavailable Unavailable Matthew Coats MD Unavailable Unavailable Matthew Coats MD Unavailable Unavailable Matthew Coats MD Unavailable Unavailable Matthew Coats MD Unavailable Unavailable Matthew Coats MD Unavailable Unavailable Matthew Coats MD Unavailable Unavailable Matthew Coats MD Unavailable Unavailable Matthew Coats MD Unavailable Unavailable Matthew Coats MD Unavailable Unavailable Matthew Coats MD Unavailable Unavailable Matthew Coats MD Unavailable Unavailable Matthew Coats MD Unavailable Unavailable Matthew Coats MD Unavailable Unavailable Matthew Coats MD Unavailable Unavailable Jorge L, Matthew Kamara MD Unavailable Unavailable Jorge L, Matthew Kamara MD Unavailable Unavailable Jorge L, E Shelli MD Unavailable Unavailable Jorge L, E Shelli LAURA Unavailable Unavailable Jorge L, Matthew Kamara MD Unavailable Unavailable Jorge L, E Shelli MD Unavailable Unavailable Jorge L, Matthew Kamara MD Unavailable Unavailable Jorge L, Matthew Kamara MD Unavailable Unavailable Jorge L, E Shelli LAURA Unavailable Unavailable Jorge L, E Shelli LAURA Unavailable Unavailable Jorge L, E Shelli LAURA Unavailable Unavailable Jorge L, E Shelli LAURA Unavailable Unavailable Jorge L, Matthew Kamara MD Unavailable Unavailable Jorge L, Matthew Kamara MD Unavailable Unavailable Jorge L, Matthew Kamara MD Unavailable Unavailable Jorge L, Matthew Kamara MD Unavailable Unavailable Jorge L, E Shelli LAURA Unavailable Unavailable Jorge L, E Shelli LAURA Unavailable Unavailable Jorge L, E Shelli LAURA Unavailable Unavailable Jorge L, E Shelli LAURA Unavailable Unavailable Jorge L, E Shelli LAURA Unavailable Unavailable Jorge L, E Sehlli LAURA Unavailable Unavailable Jorge L, Matthew Kamara MD Unavailable Unavailable Jorg El, E Shelli LAURA Unavailable Unavailable Jorge L, Matthew Kamara MD Unavailable Unavailable Jorge L, E Shelli LAURA Unavailable Unavailable Jorge L, E Shelli LAURA Unavailable Unavailable Jorge L, E Shelli LAURA Unavailable Unavailable Jorge L, E Shelli LAURA Unavailable Unavailable Jorge L, Matthew Kamara MD Unavailable Unavailable Jorge L, Matthew Kamara MD Unavailable Unavailable Jorge L, Matthew Kamara MD Unavailable Unavailable Jorge L, Matthew Kamara MD Unavailable Unavailable Jorge L, E Shelli MD Unavailable Unavailable Jorge L, Matthew Kamara MD Unavailable Unavailable Jorge L, Matthew Kamara MD Unavailable Unavailable Jorge L, Matthew Kamara MD Unavailable Unavailable Jorge L, Matthew Kamara MD Unavailable Unavailable Jorge L, Matthew Kamara MD Unavailable Unavailable Jorge L, Mathtew Kamara MD Unavailable Unavailable Jorge L, E Shelli LAURA Unavailable Unavailable BERNARDA, L JOVAN PA Unavailable Unavailable BERNARDA, L JOVAN PA Unavailable Unavailable BERNARDA, L JOVAN PA Unavailable Unavailable BERNARDA, L JOVAN PA Unavailable Unavailable BERNARDA, L JOVAN PA Unavailable Unavailable BERNARDA, L JOVAN PA Unavailable Unavailable BERNARDA, L JOVAN PA Unavailable Unavailable BERNARDA, L JOVAN PA Unavailable Unavailable BERNARDA, L JOVAN PA Unavailable Unavailable BERNARDA, L JOVAN PA Unavailable Unavailable BERNARDA, L JOVAN PA Unavailable Unavailable BERNARDA, L JOVAN PA Unavailable Unavailable BERNARDA, L JOVAN PA Unavailable Unavailable BERNARDA, L JOVAN PA Unavailable Unavailable BERNARDA, L JOVAN PA Unavailable Unavailable BERNARDA, L JOVAN PA Unavailable Unavailable Kenneth LAWLER Unavailable Unavailable Milla Mcgowan MD Unavailable Unavailable Milla Mcgowan MD Unavailable Unavailable Milla Mcgowan MD Unavailable Unavailable Milla Mcgowan MD Unavailable Unavailable Milla Mcgowan MD Unavailable Unavailable SunMilla MD Unavailable Unavailable SunMilla MD Unavailable Unavailable SunMilla MD Unavailable Unavailable SunMilla MD Unavailable Unavailable SunMilla MD Unavailable Unavailable SunMilla MD Unavailable Unavailable SunMilla MD Unavailable Unavailable SunMilla MD Unavailable Unavailable SunMilla MD Unavailable Unavailable SunMilla MD Unavailable Unavailable SunMilla MD Unavailable Unavailable SunMilla MD Unavailable Unavailable SunMilla MD Unavailable Unavailable SunMilla MD Unavailable Unavailable SunMilla MD Unavailable Unavailable SunMilla MD Unavailable Unavailable SunMilla MD Unavailable Unavailable SunMilla MD Unavailable Unavailable SunMilla MD Unavailable Unavailable SunMilla MD Unavailable Unavailable SunMilla MD Unavailable Unavailable SunMilla MD Unavailable Unavailable SunMilla MD Unavailable Unavailable SunMilla MD Unavailable Unavailable SunMilla MD Unavailable Unavailable SunMilla MD Unavailable Unavailable SunMilla MD Unavailable Unavailable SunMilla MD Unavailable Unavailable SunMilla MD Unavailable Unavailable Milla Mcgowan MD Unavailable Unavailable Milla Mcgowan MD Unavailable Unavailable SunMilla MD Unavailable Unavailable Milla Mcgowan MD Unavailable Unavailable Milla Mcgowan MD Unavailable Unavailable Milla Mcgowan MD Unavailable Unavailable Milla Mcgowan MD Unavailable Unavailable Milla Mcgowan MD Unavailable Unavailable Milla Mcgowan MD Unavailable Unavailable Milla Mcgowan MD Unavailable Unavailable Milla Mcgowan MD Unavailable Unavailable Milla Mcgowan MD Unavailable Unavailable Milla Mcgowan MD Unavailable Unavailable Milla Mcgowan MD Unavailable Unavailable Milla Mcgowan MD Unavailable Unavailable SunMilla MD Unavailable Unavailable Milla Mcgowan MD Unavailable Unavailable Milla Mcgowan MD Unavailable Unavailable SunMilla MD Unavailable Unavailable Milla Mcgowan MD Unavailable Unavailable Milla Mcgowan MD Unavailable Unavailable Milla Mcgowan MD Unavailable Unavailable Milla Mcgowan MD Unavailable Unavailable Milla Mcgowan MD Unavailable Unavailable SunMilla MD Unavailable Unavailable Milla Mcgowan MD Unavailable Unavailable SunMilla MD Unavailable Unavailable SunMilla MD Unavailable Unavailable Milla Mcgowan MD Unavailable Unavailable SunMilla MD Unavailable Unavailable Milla Mcgowan MD Unavailable Unavailable Sun, H Quirino MD Unavailable Unavailable Sun, H Quirino MD Unavailable Unavailable Sun, H Quirino MD Unavailable Unavailable Sun, H Quirino MD Unavailable Unavailable Sun, H Quirino MD Unavailable Unavailable Sun, H Quirino MD Unavailable Unavailable Sun, H Quirino MD Unavailable Unavailable Sun, H Quirino MD Unavailable Unavailable Sun, H Quirino MD Unavailable Unavailable Sun, H Quirino MD Unavailable Unavailable Sun, H Quirino MD Unavailable Unavailable Sun, H Quirino MD Unavailable Unavailable Re-disclosure Warning The records that you are about to access may contain information from federally-assisted alcohol or drug abuse programs. If such information is present, then the following federally mandated warning applies: This information has been disclosed to you from records protected by federal confidentiality rules (42 CFR part 2). The federal rules prohibit you from making any further disclosure of this information unless further disclosure is expressly permitted by the written consent of the person to whom it pertains or as otherwise permitted by 42 CFR part 2. A general authorization for the release of medical or other information is NOT sufficient for this purpose. The Federal rules restrict any use of the information to criminally investigate or prosecute any alcohol or drug abuse patient.The records that you are about to access may contain highly sensitive health information, the redisclosure of which is protected by Article 27-F of the [facility] Public Health law. If you continue you may have access to information: Regarding HIV / AIDS; Provided by facilities licensed or operated by the [facility] Office of Mental Health; or Provided by the [facility] Office for People With Developmental Disabilities. If such information is present, then the following [facility] mandated warning applies: This information has been disclosed to you from confidential records which are protected by state law. State law prohibits you from making any further disclosure of this information without the specific written consent of the person to whom it pertains, or as otherwise permitted by law. Any unauthorized further disclosure in violation of state law may result in a fine or intermediate sentence or both. A general authorization for the release of medical or other information is NOT sufficient authorization for further disc losure. Family History Family Member Name Family Member Gender Family Member Status Date o f Status Description Data Source(s) Unknown Unknown Problem [facility] ([facility] Unknown Male Problem [facility] ([facility] () Unknown Unknown Problem [facility] ([facility]) Unknown Male Problem MEDENT ([facility]) Encounters Encounter Providers Location Date Indications Data Source(s ) Outpatient Attender: Quirino Mcgowan MD 08/10/2021 12:00:00 AM [facility] Outpatient Referrer: Quirino Mcgowan MD 06/29/2021 12:00:00 AM [facility] Outpatient 06/11/2021 12:00:00 AM [facility] Out[place] [address] [facility] [address] 05/19/2021 12:00:00 AM EST eCW1 ([facility]) Unknown [address] [facility] [place] [address] 05/18/2021 12:00:00 AM EST eCW1 ([facility]) Outpatient [address] [facility] [id number] 05/18/2021 12:00:00 AM EST eCW1 ([facility]) Outpatient Attender: Quirino Mcgowan MDReferrer: Quirino Mcgowan MD [id number] 05/07/2021 12:00:00 AM [facility] Outpatient Referrer: Quirino Mcgowan MD 05/07/2021 12:00:00 AM EST Radiculopathy, lumbar region [facility] Radiculopathy, lumbar region Outpatient Attender: Quirino Mcgowan MDReferrer: Quirino Mcgowan MD 05/07/2021 12:00:00 AM EST M54.16 [facility] M54.16 Unknown [address] [facility] [place] [address] 04/29/2021 12:00:00 AM EDT eCW1 ([facility]) Unknown [address] [facility] [place] [address] 04/21/2021 12:00:00 AM EDT eCW1 ([facility]) Outpatient Referrer: Quirino Mcgowan MD 03/23/2021 12:00:00 AM EDT Spinal stenosis, lumbar region with neurogenic claudication [facility] Spinal stenosis, lumbar region with neur ogenic claudication Outpatient Attender: Quirino Mcgowan MDReferrer: Shelli Coats MD [id number] -[id number] 03/23/2021 12:00:00 AM EDT [facility] Unknown [address] [facility] [address] 03/03/2021 12:00:00 AM EDT [facility] Outpatient Attender: Tali Velarde/Tereza/Nahid daugherty/Woody 02/27/2021 09:30:00 AM EDT MED[facility] ([facility] ) [place] [address] [facility] [address] 02/19/2021 12:00:00 AM EDT eCW1 ([facility]) [place] [address] [facility] [address] 02/18/2021 12:00:00 AM EDT eCW1 ([facility]) Unknown [address] [facility] [address] 01/30/2021 12:00:00 AM EDT eCW1 ([facility]) Outpatient Attender: Quirino Mcgowan MD [id number] 01/19/2021 12:00:00 AM E [facility] Outpatient [address] [facility] [address] 12/16/2020 12:00:00 AM EDT eCW1 ([facility]) Outpatient Attender: Quirino Mcgowan MD [id number] 12/04/2020 12:00:00 AM EDT Radiculopathy, lumbar region [facility] Radiculopathy, lumbar region Outpatient Referrer: Quirino Mcgowan MD 12/04/2020 12:00:00 AM EDT Radiculopathy, lumbar region [facility] Radiculopathy, lumbar region Outpatient [address] [facility] [address] 11/13/2020 12:00:00 AM EDT eCW1 ([facility]) Outpatient Attender: Quirino Mcgowan MD [id number] 10/10/2020 12:00:00 AM E [facility] Outpatient Referrer: Quirino Mcgowan MD 10/10/2020 12:00:00 AM EDT Spinal instabilities, lumbar region [facility] Spinal instabilities, lumbar region Unknown [address] [facility] [address] 08/31/2020 12:00:00 AM EST eCW1 ([facility]) Unknown [address] [facility] [address] 08/27/2020 12:00:00 AM EST eCW1 ([facility]) Outpatient Attender: Quirino Mcgowan MD [id number] 08/25/2020 12:00:00 AM EST Spinal instabilities, lumbar region [facility] Spinal instabilities, lumbar region Outpatient Referrer: Quirino Mcgowan MD 08/25/2020 12:00:00 AM EST Spinal instabilities, lumbar region [facility] Spinal instabilities, lumbar region Unknown [address] [facility] [address] 08/18/2020 12:00:00 AM EST eCW1 ([facility]) Inpatient Attender: Quiirno Mcgowan MDAdmitter: Quirino Mcgowan MD [id number] 08/12/2020 12:00:00 AM EST - 08/14/2020 05:32:00 PM EST Radiculopathy, lumbar region [facility] Radiculopathy, lumbar region Patient discharged. Outpatient Attender: Quirino Mcgowan MD [id number] 08/08/2020 12:00:00 AM E [facility] Outpatient Attender: Jennifer FONTANA-CReferrer: Quirino Mcgowan MD 08/08/2020 12:00:00 AM [facility] pretest Outpatient Attender: SHELLI LAWLERReferrer: Quirino Mcgowan MD [id number] 08/08/2020 12:00:00 AM [facility] Outpatient Attender: JOVAN FONTANA Main Office 08/07/2020 1 2:30:00 PM EST MED[facility] ([facility]) Unknown [address] [facility] [address] 08/07/2020 12:00:00 AM EST eCW1 ([facility]) Outpatient Attender: Quirino Mcgowan MD [id number] 07/25/2020 12:00:00 AM E [facility] Outpatient Attender: MACK GORDON MDAd mitter: MACK GORDON MDReferrer: Quirino Mcgowan MD [id number] 07/17/2020 10:36:06 AM EST - 07/17/2020 02:30:00 PM EST Radiculopathy, lumbar region [facility] Radiculopathy, lumbar region Patient discharged. Outpatient Attender: MACK GORDON MDReferrer: Quirino Mcgowan MD 07/17/2020 12:00:00 AM EST Radiculopathy, lumbar region [facility] Radiculopathy, lumbar region Outpatient Attender: JEISON LÓPEZ [id number] 07/14/2020 12:00:00 AM EST - 07/15/2020 12:00:00 AM [facility] Outpatient [address] [facility] [address] 06/18/2020 12:00:00 AM EST eCW1 ([facility]) Outpatient Attender: Quirino Mcgowan MDReferrer: Quirino Mcgowan MD [id number] 06/02/2020 12:00:00 AM [facility] Outpatient Referrer: Quirino Mcgowan MD 05/28/2020 12:00:00 AM EST Radiculopathy, lumbar region [facility] Radiculopathy, lumbar region Outpatient [address] [facility] [address] 05/16/2020 12:00:00 AM EST eCW1 ([facility]) Unknown [address] [facility] [address] 05/12/2020 12:00:00 AM EST eCW1 ([facility]) Outpatient Referrer: Quirino Mcgowan MD 04/28/2020 12:00:00 AM EST Radiculopathy, lumbar region [facility] Radiculopathy, lumbar region Outpatient Attender: Quirino Mcgowan MD [id number] 04/28/2020 12:00:00 AM E [facility] Unknown [address] [facility] [address] 04/24/2020 12:00:00 AM EDT eCW1 ([facility]) [facility] [address] [facility] [place] [address] 04/17/2020 12:00:00 AM EDT eCW1 ([facility]) Immunizations Vaccine Date Status Description Data Source(s) COVID-19 VACC, MRNA(PFIZER)/PF 04/09/2021 12:00:00 AM EDT completed [facility] COVID-19 VACCINE Pfizer 04/09/2021 12:00:00 AM EDT completed [facility] Vaccine Series Complete: YESThis Data wa s Submitted to [facility]. COVID-19 VACCINE Pfizer 07/10/2020 12:00:00 AM EST completed [facility] Vaccine Series Complete: YESThis Data wa s Submitted to [facility]. COVID-19 VACCINE Pfizer 06/19/2020 12:00:00 AM EST completed [facility] Vaccine Series Complete: NOThis Data was Submitted to [facility]. Medications Medication Brand Name Start Date Product Form Dose Route Admi nistrative Instructions Pharmacy Instructions Status Indications Reaction Description Data Source(s) 40 mg 05/19/2021 12:00:00 AM EST tablet 90 TAKE ONE TABLET BY MOUTH EVERY DAY TAKE ONE TABLET BY MOUTH EVERY DAY SOLD: 05/22/2021 [facility] 50 mg 05/19/2021 12:00:00 AM EST tablet 90 TAKE ONE TABLET BY MOUTH AT BEDTIME TAKE ONE TABLET BY MOUTH AT BEDTIME SOLD: 05/22/2021 [facility] 24 HR Metformin hydrochloride 500 MG Extended Release Oral T ablet METFORMIN HCL 05/19/2021 12:00:00 AM EST tablet extended release 24 hr 180 TAKE 2 TABLETS BY MOUTH BEFORE DINNER TAKE 2 TABLETS BY MOUTH BEFORE DINNER SOLD: 05/22/2021 [facility] 1,250 mcg (50,000 unit) 05/19/2021 12:00:00 AM EST capsule 12 TAKE 1 CAPSULE BY MOUTH ONCE A WEEK TAKE 1 CAPSULE BY MOUTH ONCE A WEEK SOLD: 05/22/2021 [facility] Trazodone Hydrochloride 50 MG Oral Tablet traZODone HC l 50 MG traZODone HCl 50 MG 05/18/2021 12:00:00 AM EST active traZODone HCl 50 MG eCW1 ([facility]) Trazodone Hydrochloride 50 MG Oral Tablet traZODone HC l 50 MG traZODone HCl 50 MG 05/18/2021 12:00:00 AM EST active traZODone HCl 50 MG eCW1 ([facility]) Trazodone Hydrochloride 50 MG Oral Tablet traZODone HC l 50 MG traZODone HCl 50 MG 05/18/2021 12:00:00 AM EST active traZODone HCl 50 MG eCW1 ([facility]) 10 mg 04/24/2021 12:00:00 AM EDT tablet 30 TAKE ONE TABLET BY MOUTH EVERY DAY TAKE ONE TABLET BY MOUTH EVERY DAY SOLD: 04/25/2021 [facility] atorvastatin 40 MG Oral Tablet ATORVASTATIN CALCIUM 04/24/2021 1 2:00:00 AM EDT tablet 30 TAKE ONE TABLET BY MOUTH EVERY D AY TAKE ONE TABLET BY MOUTH EVERY DAY SOLD: 04/25/2021 [facility] cetirizine hydrochloride 10 MG Oral Tablet Cetirizine HCl 10 MG Cetirizine HCl 10 MG 04/23/2021 12:00:00 AM EDT 1.0 {tablet} activ e Cetirizine HCl 10 MG eCW1 ([facility]) cetirizine hydrochloride 10 MG Oral Tablet Cetirizine HCl 10 MG Cetirizine HCl 10 MG 04/23/2021 12:00:00 AM EDT 1.0 {tablet} activ e Cetirizine HCl 10 MG eCW1 ([facility]) cetirizine hydrochloride 10 MG Oral Tablet Cetirizine HCl 10 MG Cetirizine HCl 10 MG 04/23/2021 12:00:00 AM EDT 1.0 {tablet} activ e Cetirizine HCl 10 MG eCW1 ([facility]) cetirizine hydrochloride 10 MG Oral Tablet Cetirizine HCl 10 MG Cetirizine HCl 10 MG 04/23/2021 12:00:00 AM EDT 1.0 {tablet} activ e Cetirizine HCl 10 MG eCW1 ([facility]) cetirizine hydrochloride 10 MG Oral Tablet Cetirizine HCl 10 MG Cetirizine HCl 10 MG 04/23/2021 12:00:00 AM EDT 1.0 {tablet} activ e Cetirizine HCl 10 MG eCW1 ([facility]) 60 mcg (15 mcg x 4)/0.5 mL 04/15/2021 12:00:00 AM EDT suspen karlene 0 INJECT DIRECTED INJECT DIRECTED SOLD: 04/15/2021 [facility] 300 mg 03/30/2021 12:00:00 AM EDT capsule 60 TAKE ONE CAPSULE BY MOUTH TWICE A DAY TAKE ONE CAPSULE BY MOUTH TWICE A DAY SOLD: 05/13/2021 [facility] 300 mg 03/30/2021 12:00:00 AM EDT capsule 60 TAKE ONE CAPSULE BY MOUTH TWICE A DAY TAKE ONE CAPSULE BY MOUTH TWICE A DAY SOLD: 03/31/2021 [facility] gabapentin 300 MG Oral Capsule Gabapentin 300 MG Oral Capsule (Neurontin) Gabapentin 300 MG Oral Capsule (Neurontin) 03/27/2021 12:00:00 AM EDT 300 mg Oral active Take 1 capsule by mo [facility] Two Times Daily [facility] 17 gram/dose 03/10/2021 12:00:00 AM EDT powder 510 USE DIRECTED BY DOCTOR FOR BOWEL PREP USE DIRECTED BY DOCTOR FOR BOWEL PREP SOLD: 03/18/2021 [facility] 10 mg 03/06/2021 12:00:00 AM EDT tablet extended release 24hr 30 TAKE ONE TABLET BY MOUTH EVERY DAY TAKE ONE TABLET BY MOUTH EVERY DAY SOLD: 03/10/2021 [facility] 10 mg 03/06/2021 12:00:00 AM EDT tablet extended release 24hr 30 TAKE ONE TABLET BY MOUTH EVERY DAY TAKE ONE TABLET BY MOUTH EVERY DAY SOLD: 04/10/2021 [facility] 10 mg 03/06/2021 12:00:00 AM EDT tablet extended release 24hr 30 TAKE ONE TABLET BY MOUTH EVERY DAY TAKE ONE TABLET BY MOUTH EVERY DAY SOLD: 05/13/2021 [facility] 300 mg 03/05/2021 12:00:00 AM EDT capsule 60 TAKE ONE CAPSULE BY MOUTH TWICE A DAY TAKE ONE CAPSULE BY MOUTH TWICE A DAY SOLD: 03/10/2021 [facility] Magnesium Hydroxide 80 MG/ML Oral Suspension Milk Of Magnesi a 02/27/2021 12:00:00 AM EDT ORAL active M KAREEM ([facility]) POLYETHYLENE GLYCOL 3350 142 MG/ML Oral Solution [Miralax] Kenneth iralax 02/27/2021 12:00:00 AM EDT active Kenneth SERNA ([facility], ) 1,250 mcg (50,000 unit) 02/24/2021 12:00:00 AM EDT capsule 12 TAKE ONE CAPSULE BY MOUTH ONCE A WEEK TAKE ONE CAPSULE BY MOUTH ONCE A WEEK SOLD: 03/03/2021 [facility] pantoprazole 40 MG Delayed Release Oral Tablet PANTOPRAZOLE SODIUM 01/26/2021 12:00:00 AM EDT tablet,delayed release (DR/EC) 180 T JULIAN ONE TABLET BY MOUTH TWICE A DAY TAKE ONE TABLET BY MOUTH TWICE A DAY SOLD: 05/13/2021 [facility] 10 mg 01/26/2021 12:00:00 AM EDT tablet extended release 24hr 30 TAKE ONE TABLET BY MOUTH EVERY DAY TAKE ONE TABLET BY MOUTH EVERY DAY SOLD: 01/26/2021 [facility] pantoprazole 40 MG Delayed Release Oral Tablet PANTOPRAZOLE SODIUM 01/26/2021 12:00:00 AM EDT tablet,delayed release (DR/EC) 180 T JULIAN ONE TABLET BY MOUTH TWICE A DAY TAKE ONE TABLET BY MOUTH TWICE A DAY SOLD: 01/26/2021 [facility] atorvastatin 40 MG Oral Tablet ATORVASTATIN CALCIUM 12/24/2020 1 2:00:00 AM EDT tablet 90 TAKE ONE TABLET BY MOUTH EVERY D AY TAKE ONE TABLET BY MOUTH EVERY DAY SOLD: 01/05/2021 [facility] 24 HR Metformin hydrochloride 500 MG Extended Release Oral T ablet METFORMIN HCL 12/24/2020 12:00:00 AM EDT tablet extended release 24 hr 180 TAKE 2 TABLETS BY MOUTH BEFORE DINNER TAKE 2 TABLETS BY MOUTH BEFORE DINNER SOLD: 01/05/2021 [facility] 10 mg 12/03/2020 12:00:00 AM EDT tablet extended release 24hr 30 TAKE ONE TABLET BY MOUTH EVERY DAY TAKE ONE TABLET BY MOUTH EVERY DAY SOLD: 12/17/2020 [facility] 500 mg 11/20/2020 12:00:00 AM EDT capsule 21 TAKE ONE CAPSULE BY MOUTH EVERY 8 HOURS FOR 7 DAYS TAKE ONE CAPSULE BY MOUTH EVERY 8 HOURS FOR 7 DAYS [facility] pantoprazole 40 MG Delayed Release Oral Tablet PANTOPRAZOLE SODIUM 10/14/2020 12:00:00 AM EDT tablet,delayed release (DR/EC) 180 T JULIAN ONE TABLET BY MOUTH TWO TIMES A DAY TAKE ONE TABLET BY MOUTH TWO TIMES A DAY SOLD: 10/19/2020 [facility] 500 mg 09/09/2020 12:00:00 AM EDT tablet extended release 24 hr 180 TAKE 2 TABLETS BY MOUTH EVERY EVENING BEFORE DINNER TAKE 2 TABLETS BY MOUTH EVERY EVENING BEFORE DINNER SOLD: 09/10/2020 [facility] atorvastatin 40 MG Oral Tablet ATORVASTATIN CALCIUM 09/09/2020 1 2:00:00 AM EDT tablet 90 TAKE ONE TABLET BY MOUTH EVERY D AY TAKE ONE TABLET BY MOUTH EVERY DAY SOLD: 09/10/2020 [facility] atorvastatin 40 MG Oral Tablet Atorvastatin Calcium 40 MG Oral Tablet (LIPITOR) Atorvastatin Calcium 40 MG Oral Tablet (LIPITOR) 09/09/2020 12:00:00 AM EDT 40 mg Oral active Take [address] [facility] 10 mg 09/02/2020 12:00:00 AM EST tablet extended release 24hr 30 TAKE ONE TABLET BY MOUTH EVERY DAY TAKE ONE TABLET BY MOUTH EVERY DAY SOLD: 09/30/2020 [facility] 10 mg 09/02/2020 12:00:00 AM EST tablet extended release 24hr 30 TAKE ONE TABLET BY MOUTH EVERY DAY TAKE ONE TABLET BY MOUTH EVERY DAY SOLD: 09/03/2020 [facility] 300 mg 09/01/2020 12:00:00 AM EST capsule 270 TAKE THREE CAPSULES BY MOUTH THREE TIMES A DAY TAKE THREE CAPSULES BY MOUTH THREE TIMES A DAY SOLD: 09/01/2020 [facility] methylPREDNISolone 4 MG Oral Tablet Therapy Pack (MEDROL (PA K)) [id number] 09/01/2020 12:00:00 AM EST active follow package directions [facility] gabapentin 300 MG Oral Capsule Gabapentin 300 MG Oral Capsule (Neurontin) Gabapentin 300 MG Oral Capsule (Neurontin) 09/01/2020 12:00:00 AM EST 900 mg Oral active Take 3 capsules by m outh Three times daily [facility] 4 mg 09/01/2020 12:00:00 AM EST tablets,dose pack 21 FOLLOW PACKAGE DIRECTIONS FOLLOW PACKAGE DIRECTIONS SOLD: 09/01/2020 [facility] 50 mg 08/25/2020 12:00:00 AM EST tablet 90 TAKE 1 TABLET BY MOUTH EVERY 6 HOURS NEEDED FOR PAIN MAXIMUM DAILY DOSE = 4 TABLETS TAKE 1 TABLET BY MOUTH EVERY 6 HOURS NEEDED FOR PAIN MAXIMUM DAILY DOSE = 4 TABLETS SOLD: 08/25/2020 [facility] tramadol hydrochloride 50 MG Oral Tablet traMADol HCl 50 MG Oral Tablet (Ultram) traMADol HCl 50 MG Oral Tablet (Ultram) 08/25/2020 12:00:00 AM EST 50 mg Oral active Take 1 tablet by mouth every 6 (six) hours as needed for Pain, Max Daily Dose: 200 mg [facility] gabapentin 300 MG Oral Capsule Gabapentin 300 MG Oral Capsule (Neurontin) Gabapentin 300 MG Oral Capsule (Neurontin) 08/25/2020 12:00:00 AM EST 300 mg Oral aborted Take 1 capsule by mo [facility] Three times daily [facility] 300 mg 08/25/2020 12:00:00 AM EST capsule 90 TAKE ONE CAPSULE BY MOUTH THREE TIMES A DAY TAKE ONE CAPSULE BY MOUTH THREE TIMES A DAY SOLD: 08/25/2020 [facility] 4 mg 08/18/2020 12:00:00 AM EST tablets,dose pack 21 FOLLOW PACKAGE DIRECTIONS FOLLOW PACKAGE DIRECTIONS SOLD: 08/18/2020 [facility] 10-325 mg 08/18/2020 12:00:00 AM EST tablet 28 TAKE ONE TABLET BY MOUTH EVERY 6 HOURS NEEDED FOR PAIN MAXIMUM DAILY DOSE = 4 TAKE ONE TABLET BY MOUTH EVERY 6 HOURS NEEDED FOR PAIN MAXIMUM DAILY DOSE = 4 SOLD: 08/18/2020 [facility] methylPREDNISolone 4 MG Oral Tablet Therapy Pack (MEDROL (PA K)) [id number] 08/18/2020 12:00:00 AM EST completed follow package directions [facility] Acetaminophen 325 MG / Oxycodone Hydroch loride 10 MG Oral Tablet oxyCODONE- Acetaminophen 10-325 MG Oral Tablet (Percocet) oxyCODONE-Acetaminophen 10-325 MG Oral Tablet (Percocet) 08/18/2020 12:00:00 AM EST 1 {tbl} Oral active Take 1 tablet by mouth every 6 (six) brent rs as needed for Pain, Max Daily Dose: 4 tablets [facility] 100 mg 08/14/2020 12:00:00 AM EST capsule 20 TAKE ONE CAPSULE BY MOUTH TWICE A DAY FOR 10 DAYS TAKE ONE CAPSULE BY MOUTH TWICE A DAY FOR 10 DAYS SOLD : 08/14/2020 [facility] 5-325 mg 08/14/2020 12:00:00 AM EST tablet 42 TAKE ONE TO TWO TABLETS BY MOUTH EVERY 4 HOURS NEEDED FOR PAIN FOR UP TO 7 DAYS MAXIMUM DAILY DOSE = 6 TAKE ONE TO TWO TABLETS BY MOUTH EVERY 4 HOURS NEEDED FOR PAIN FOR UP TO 7 DAYS MAXIMUM DAILY DOSE = 6 SOLD: 08/14/2020 [facility] Acetaminophen 325 MG / Oxycodone Hydroch loride 5 MG Oral Tablet oxyCODONE- Acetaminophen 5-325 MG Oral Tablet (PERCOCET) oxyCODONE-Acetaminophen 5-325 MG Oral Tablet (PERCOCET) 08/14/2020 12:00:00 AM EST {tbl} Oral active Take 1-2 tablets by mouth every 4 (four) hours as needed for Pain for up to 7 days, Max Daily Dose: 6 tablets [facility] Docusate Sodium 100 MG Oral Capsule Docu sate Sodium 100 MG Oral Capsule (COLACE) Docusate Sodium 100 MG Oral Capsule (COLACE) 08/14/2020 12:00:00 AM EST 100 mg Oral active Take 1 capsule by mouth Two Times Daily for 10 days [facility] POLYETHYLENE GLYCOL 3350 142 MG/ML Oral Solution polyethylene glycol (MIRALAX) packet 17 g polyethylene glycol (MIRALAX) packet 17 g 08/13/2020 0 9:00:00 AM EST 17 g Oral active 17 g, Or al, Daily Standard, First dose on Tue08/13/20 at 0900, For 30 days
Hold for Bowel Movement.
[facility] Medication administered onsite multivitamin tablet 1 tablet 5370-5321-75 08/13/2020 09:00:00 AM EST 1 {tbl} Oral active 1 tablet, Oral , Daily Standard, First dose on Tue08/13/20 at 0900, For 30 days [facility] Medication administered onsite Oxybutynin chloride 5 MG Oral Tablet oxybutynin (DITRO STEELE) tablet 5 mg oxybutynin (DITROPAN) tablet 5 mg 08/13/2020 09:00:00 AM EST 5 mg Oral active 5 mg, Oral, 2 Times Daily, First dose on Tue08/13/20 at 0900, For 30 days [facility] Medication administered onsite pantoprazole 40 MG Delayed Release Oral Tablet pantoprazole (PROTONIX) EC tablet 40 mg pantoprazole (PROTONIX) EC tablet 40 mg 08/13/2020 09:00:[address] 40 mg Oral active 40 mg, Ora l, Daily Standard, First dose on Tue08/13/20 at 0900, For 30 days
Do not crush or chew
[facility] Medication administered onsite Saccharomyces boulardii 250 MG Oral Caps ule saccharomyces boulardii (FLORASTOR) capsule 250 mg saccharomyces boulardii (FLORASTOR) capsule 250 mg 09:00:00 AM EST 250 mg Oral active 250 mg, Oral, 2 Times Daily, First dose on Tue08/13/20 at 0900, For 30 days [facility] Medication administered onsite insulin lispro (HumaLOG) injection LOW DOSE EATING INS ULIN patients 1-8 Units [id number] 08/13/2020 08:00:00 AM EST U Subcutaneous active 1-8 Units, Subcutaneous, Three Times Daily-With Meals, First dose on Tue08/13/20 at 0800, For 30 days
Nursing MUST open the 'SQ Insulin Dosing Charts' Sidebar Report, or, the Patient Summary or Summary Report within the ED.
[facility] Medication administered onsite Cefazolin 2000 MG Injection ceFAZolin (ANCEF) IVPB 2 g in dextrose (premix) ceFAZolin (ANCEF) IVPB 2 g in dextrose (premix) 08/13/2020 01:00:00 AM EST 2 g Intravenous active 2 g, Int ravenous, Administer over 30 Minutes, Every 8 hours Standard (3 times per day), First dose on Tue08/13/20 at 0100, For 13 doses [facility] Medication administered onsite Magnesium Hydroxide 80 MG/ML Oral Suspen karlene magnesium hydroxide (MILK OF MAGNESIA) 400 MG/5ML suspension 45 mL magnesium hydroxide (MILK OF MAGNESIA) 4 00 MG/5ML suspension 45 mL 08/12/2020 10:00:00 PM EST 45 mL Oral active 45 mL, Oral, Nightly, First dose on Tue08/12/20 at 2200, For 30 days
If serum creatinine > 2 notify provider before administering.
[facility] Medication administered onsite Docusate Sodium 100 MG Oral Capsule docusate sodium (C OLACE) capsule 100 mg docusate sodium (COLACE) capsule 100 mg 08/12/2020 09:00:00 PM EST 100 mg Oral active 100 mg, Oral, 2 Times Daily, First dose on Tue08/12/20 at 2100, For 30 days [facility] Medication administered onsite Glucagon 1 MG Injection glucagon (human recombinant) ( GLUCAGEN) injection 1 mg glucagon (human recombinant) (GLUCAGEN) injection 1 mg 08/12/2020 07:55:35 PM EST 1 mg Intramuscular active 1 mg, Intramuscular, PRN, for glucose <55 without IV access, Starting Tue08/12/20 at 1954, For 30 days [facility] Medication administered onsite dextrose 50 % IV solution 25 mL [id number] 08/12/2020 07:55:[address] 25 mL Intravenous active 25 mL, Intrav enous, PRN, Other, blood glucose <55, Starting Tue08/12/20 at 1954, For 30 days
Not for midline administration.
[facility] Medication administered onsite fentaNYL (SUBLIMAZE) (PF) injection 25 mcg [id number] 08/12/2020 07:55:35 PM EST 25 ug Intravenous aborted 25 m cg, Intravenous, Every 2 hours PRN, Breakthrough Pain, Starting Tue08/12/20 at 1954, For 3 days [facility] Medication administered onsite Acetaminophen 325 MG Oral Tablet acetaminophen (TYLENO L) tablet 650 mg acetaminophen (TYLENOL) tablet 650 mg 08/12/2020 07:55:35 PM EST 65 0 mg Oral active 650 mg, Oral, E very 6 hours PRN, Mild Pain (Pain Scale Score 1- 3), Fever, Starting Tue08/12/20 at 1954, For 30 days
Maximum daily dose of acetaminophen is 3,000 mg from all sources in 24 hours.
[facility] Medication administered onsite Oxycodone Hydrochloride 5 MG Oral Tablet oxyCODONE (ROXICODONE) immediate release tablet 10 mg oxyCODONE (ROXICODONE) immediate release tablet 10 mg 08/12/2020 07:55:35 PM EST 10 mg Oral active 10 mg, Oral, Every 4 hours PRN, Severe Pain (Pain Scale Score 7-10), Starting Tue08/12/20 at 1954, For 4 days 13 hours
Oxycodone immediate release is limited to 10 mg per dose. Higher doses ( only) require Pain Service consultation and approval.
[facility] Medication administered onsite Oxycodone Hydrochloride 5 MG Oral Tablet oxyCODONE (ROXICODONE) immediate release tablet 5 mg oxyCODONE (ROXICODONE) immediate release tablet 5 mg 08/12/2020 07:55:35 PM EST 5 mg Oral active 5 mg, Oral, Every 4 hours PRN, Moderate Pain (Pain Scale Score 4-6), Starting Tue08/12/20 at 1954, For 4 days 13 hours
Oxycodone immediate release is limited to 10 mg per dose. Higher doses ( only) require Pain Service consultation and approval.
[facility] Medication administered onsite Glucose 0.417 MG/MG Oral Gel glucose (GLUTOSE) 40 % or al gel 15 g glucose (GLUTOSE) 40 % oral gel 15 g 08/12/2020 07:55:35 PM EST 15 g Oral active 15 g, Oral, PRN, Low blood s ugar, for gluose 55-69 mg/dl and able to take PO, Starting Tue08/12/20 at 1954, For 30 days [facility] Medication administered onsite Bisacodyl 10 MG Rectal Suppository bisacodyl (DULCOLAX ) suppository 10 mg bisacodyl (DULCOLAX) suppository 10 mg 08/12/2020 07:55:35 PM EST 10 mg Rectal active 10 mg, Rectal, Every 72 hours PRN, Constipation, Constipation, Starting Tue08/12/20 at 1954, For 30 days
Hold if patient has had a BM in the past 2 days.
[facility] Medication administered onsite senna tablet 2 tablet 08/12/2020 07:55:35 PM EST 2 {tbl} Oral active [Order 1 Start] Name: senna tablet 2 tab let Signed Summary: 2 tablet, Oral, Nightly PRN, Constipation, Starting 08/12/20 at 1954, For 30 days [Order 1 End] [Order 2 Start] Name: senna (SENOKOT) syrup 10 mL Signed Summary: 10 mL, Oral, Nightly PRN, Constipation, Starting Tue08/12/20 at 1954, For 30 days
Use NG tube nightly as needed if no BM on the third day.
[Order 2 End] [facility] Medication administered onsite ondansetron (ZOFRAN) injection 4 mg 08/12/2020 07:55:35 PM EST 4 mg Intravenous active [Order 1 Star t] Name: ondansetron (ZOFRAN) injection 4 mg Signed Summary: 4 mg, Intravenous, Every 8 hours PRN, Nausea, Vomiting, Starting Tue08/12/20 at 1954, For 7 days
Administer if unable to tolerate PO.
[Order 1 End] [Order 2 Start] Name: ondansetron (ZOFRAN) tablet 4 mg Signed Summary: 4 mg, Oral, Every 8 hours PRN, Nausea, Vomiting, Starting Tue08/12/20 at 1954, For 7 days
Administer if able to tolerate PO.
[Order 2 End] [facility] Medication administered onsite NaCl infusion 0.9 % [id number] 08/12/2020 06:15:00 PM EST Intravenous aborted at 100 mL/hr, Intrav enous, Continuous, Starting Tue08/12/20 at 1815, For 12 hours [facility] Medication administered onsite fentaNYL (SUBLIMAZE) (PF) injection 25 mcg [id number] 08/12/2020 05:29:48 PM EST 25 ug Intravenous aborted 25 m cg, Intravenous, Every 5 min PRN, Moderate Pain (Pain Scale Score 4-6), Starting Tue08/12/20 at 1729, For 10 doses, Recovery [facility] Medication administered onsite sodium chloride (preservative free) 0.9 % flush 3 mL [id number] 08/12/2020 10:48:39 AM EST 3 mL Intravenous active 3 mL, Intravenous, Every 8 hours, First dose on Tue08/12/20 at 1100, For 30 days
Saline Lock. Flush Q8H and after each use to Saline Lock.
[facility] Medication administered onsite sodium chloride (preservative free) 0.9 % flush 3 mL [id number] 08/12/2020 10:48:39 AM EST 3 mL Intravenous active 3 mL, Intravenous, PRN, Line Care, Starting Tue08/12/20 at 1048, For 30 days
Saline Lock. Flush Q8H and after each use to Saline Lock.
[facility] Medication administered onsite Multivitamin Women Oral Tablet [id number] 08/06/2020 12:00:00 AM EST Oral active Take by mouth [facility] Multivitamin Women 08/06/2020 12:00:00 AM EST ORAL active MEDENT ([facility]) 20 mg 07/21/2020 12:00:00 AM EST tablet 8 TAKE TWO TABLETS BY MOUTH EVERY DAY TAKE TWO TABLETS BY MOUTH EVERY DAY SOLD: 07/21/2020 [facility] 10 mg 06/19/2020 12:00:00 AM EST tablet extended release 24hr 30 TAKE ONE TABLET BY MOUTH EVERY DAY TAKE ONE TABLET BY MOUTH EVERY DAY SOLD: 06/24/2020 [facility] 10 mg 06/19/2020 12:00:00 AM EST tablet extended release 24hr 30 TAKE ONE TABLET BY MOUTH EVERY DAY TAKE ONE TABLET BY MOUTH EVERY DAY SOLD: 07/22/2020 [facility] 24 HR Oxybutynin chloride 10 MG Extended Release Oral Tablet Oxybutynin Chloride ER 10 MG Oxybutynin Chloride ER 10 MG 06/18/2020 12:00:00 AM EST 1.0 {tablet} active Oxybutynin Chloride ER 10 MG eCW1 ([facility]) 24 HR Oxybutynin chloride 10 MG Extended Release Oral Tablet Oxybutynin Chloride ER 10 MG Oxybutynin Chloride ER 10 MG 06/18/2020 12:00:00 AM EST 1.0 {tablet} active Oxybutynin Chloride ER 10 MG eCW1 ([facility]) 24 HR Oxybutynin chloride 10 MG Extended Release Oral Tablet Oxybutynin Chloride ER 10 MG Oxybutynin Chloride ER 10 MG 06/18/2020 12:00:00 AM EST 1.0 {tablet} active Oxybutynin Chloride ER 10 MG eCW1 ([facility]) 24 HR Oxybutynin chloride 10 MG Extended Release Oral Tablet Oxybutynin Chloride ER 10 MG Oxybutynin Chloride ER 10 MG 06/18/2020 12:00:00 AM EST 1.0 {tablet} active Oxybutynin Chloride ER 10 MG eCW1 ([facility]) 24 HR Oxybutynin chloride 10 MG Extended Release Oral Tablet Oxybutynin Chloride ER 10 MG Oxybutynin Chloride ER 10 MG 06/18/2020 12:00:00 AM EST 1.0 {tablet} active Oxybutynin Chloride ER 10 MG eCW1 ([facility]) 50 mg 06/17/2020 12:00:00 AM EST tablet 30 TAKE ONE TABLET BY MOUTH AT BEDTIME NEEDED TAKE ONE TABLET BY MOUTH AT BEDTIME NEEDED SOLD: [facility] 50 mg 06/17/2020 12:00:00 AM EST tablet 30 TAKE ONE TABLET BY MOUTH AT BEDTIME NEEDED TAKE ONE TABLET BY MOUTH AT BEDTIME NEEDED SOLD: [facility] atorvastatin 40 MG Oral Tablet ATORVASTATIN CALCIUM 06/04/2020 1 2:00:00 AM EST tablet 90 TAKE ONE TABLET BY MOUTH EVERY D AY TAKE ONE TABLET BY MOUTH EVERY DAY SOLD: 06/08/2020 [facility] 500 mg 06/04/2020 12:00:00 AM EST tablet extended release 24 hr 180 TAKE 2 TABLETS BY MOUTH BEFORE MEALS TAKE 2 TABLETS BY MOUTH BEFORE MEALS SOLD: 06/08/2020 [facility] pantoprazole 40 MG Delayed Release Oral Tablet PANTOPRAZOLE SODIUM 03/28/2020 12:00:00 AM EDT tablet,delayed release (DR/EC) 180 T JULIAN ONE TABLET BY MOUTH TWICE A DAY TAKE ONE TABLET BY MOUTH TWICE A DAY SOLD: 07/07/2020 [facility] Erythromycin 0.005 MG/MG Ophthalmic Oint ment Erythromycin 5 MG/GM Ophthalmic Ointment (ROMYCIN) Erythromycin 5 MG/GM Ophthalmic Ointment (ROMYCIN) 12:00:00 AM EDT [facility] Diclofenac Sodium 0.01 MG/MG Topical Gel Diclofenac Sodium 1 % Transdermal Gel (VOLTAREN) Diclofenac Sodium 1 % Transdermal Gel (VOLTAREN) 07/24 12:00:00 AM EST 4 g Topical aborted Apply 4 g topic ally Four times daily [facility] atorvastatin 40 MG Oral Tablet atorvastatin (LIPITOR) 40 MG tablet atorvastatin (LIPITOR) 40 MG tablet 10/23/2018 12:00:00 AM EDT 40 mg Oral aborted Take 40 mg by mouth every morning [facility] Multiple Vitamin (MULTIVITAMIN ADULT PO) Oral aborted Take by mouth every morning [facility] Omeprazole 40 MG Delayed Release Oral Ca psule omeprazole (PRILOSEC) 40 MG capsule omeprazole (PRILOSEC) 40 MG capsule 40 mg Oral aborted Take 40 mg by mouth Two Times Daily. [facility] Insurance Providers Payer name Policy type / Coverage type Policy ID Covered green party ID Covered green party's relationship to panchal Policy Panchal Plan Information [employer] [place] 302/307 [id number] 2 [id number] BCBS [employer] U/W Medigap Part B [id number] Self [id number] BCBS [employer] U/W Medigap Part B [id number] Self V [id number] [employer]BS [employer] Ppo U/W Medigap Part B [id number] Self V [id number] [employer]BS Commercial [id number]. [id number] Self [id number] BCBS [employer] Ppo U/W Medigap Part B [id number] Self [employer] BCBS Commercial [id number] Self [employer]BS Commercial [id number]. [id number] Self [id number] [employer]BS Commercial [id number] [id number]. [id number] Self [id number] BCBS [employer] Ppo U/W Medigap Part B [id number] Self V [id number] [employer] Commercial [id number]. [id number] Self [id number] [employer]BS [employer] U/W Medigap Part B [id number] Self [id number] BCBS [employer] Ppo U/W Medigap Part B [id number] Self V [id number] [employer]BS Commercial [id number] [id number]. [id number] Self [id number] BCBS [employer] U/W Medigap Part B [id number] Self V [id number] [employer]BS Commercial [id number] [id number]. [id number] Self [id number] [employer]BS Commercial [id number] Self [id number] [employer]BS Commercial [id number] Self [id number] BCBS [employer] Ppo U/W Medigap Part B [id number] Self V [id number] EXCELLUS H [id number] Self [id number] EXCELLUS H [id number] Self [id number] EXCELLUS H [id number] Self [id number] [employer] [place] PPO 302/307 [id number] SP [id number] EXCELLUS H [id number] Self [id number] BCBS [place] 306/806 [id number] SP [id number] [place] PPO 302/307 [id number] SP [id number] [place] PPO 302/307 [id number] SP [id number] EXCELLUS BCBS [id number] Aleyda VYS [id number] [facility] I [id number] Self [id number] BCBS Medigap Part B [id number] ..[id number] .[id number] Family Dependent [id number] ANSI-Commercial [id number] BCBS/[employer] Commercial [id number] ...[id number]. [id number] Self [id number] BC/[place] Commercial [id number] ...[id number] Self v [id number] [employer] PPO 302/307 [id number] SP [id number] BCBS/[employer] Commercial [id number] ..[id number]. [id number] Self [id number] BCBS Medigap Part B [id number] .[id number] .[id number] Family Dependent [id number] BCBS Medigap Part B [id number] ..[id number] .[id number] Family Dependent [id number] BCBS Medigap Part B [id number] .[id number] .[id number] Family Dependent [id number] BCBS Medigap Part B [id number] .[id number] Family Dependent BCBS [place] 306/806 [id number] SP [id number] BCBS/[employer] Commercial [id number] Self [employer] BCBS Health Maintenance Organization (HMO) [id number] Self BCBS Medigap Part B [id number] Family Dependent [employer] PPO 302/307 [id number] SP [id number] [employer] [place] 306/806 [id number] SP [id number] [employer]CELL[employer] BCBS P [id number] S [id number] [id number] [employer] BCBS S [id number] S VYA [id number] [facility]LY [facility] COMMUNITY PLAN [facility] [id number] SP [id number] P UNAVAILABLE UNAVAILA BLE FORMERLY [facility] COMMUNITY [facility]AN [facility] [id number] SP [id number] BCBS OF [place] 306/806 [id number] SP [id number] [place]BS [place] PPO 302/307 [id number] SP [id number] [facility] COMMUN[facility] [id number] SP [id number] [place] [id number] SP [id number] B SELF PAY ONLY [id number] SP [id number] SELF PAY EXCELLUS BCBS B [id number] S VYS [id number] BCBS [place] 306/806 [id number] SP [id number] ANSI-Commercial [id number] ANSI-Commercial [id number] ANSI-Commercial [id number] ANSI-Commercial [id number] ANSI-Commercial [id number] ANSI-Commercial [id number] ANSI-Commercial [id number] ANSI-Commercial [id number] BCBS Medigap Part B [id number] Family Dependent [id number] BCBS Medigap Part B [id number] Family Dependent [id number] ANSI-Commercial [id number] [place]BS [place] 306/806 [id number] SP [id number] ANSI-Commercial [id number] ANSI-Commercial [id number] [employer] [place] Commercial [id number] Self v [id number] ANSI-Commercial [id number] ANSI-Commercial [id number] ANSI-Commercial [id number] [facility] [id number] .572.32003.0 Family Dependent [id number] Problems, Conditions, and Diagnoses Code Display Name Description Problem Type Effective Dates Data Source(s) M48.062 Spinal stenosis, lumbar region with neur ogenic claudication Spinal stenosis, lumbar region with neurogenic claudication Diagnosis 0 03/23/2021 07:05:54 AM [facility] M96.1 Postlaminectomy syndrome, not elsewhere classified Postlaminectomy syndrome, not elsewhere classified Diagnosis 12/04/2020 07:01:27 AM [facility] M53.2X6 Spinal instabilities, lumbar region Spinal insta bilities, lumbar region Diagnosis 12/04/2020 07:01:27 AM [facility] pretest pretest Diagnosis 08/08/2020 12:43:41 PM [facility] Weakness of left lower extremity [R29.89 8] Weakness of left lower extremity [R29.898] Diagnosis 08/08/2020 11:52:09 AM [facility] Lumbar radiculopathy [M54.16] Lumbar radiculopathy [M5 4.16] Diagnosis 08/08/2020 11:52:09 AM [facility] Lumbar spine instability [M53.2X6] Lumbar spine instability [M53.2X6] Diagnosis 08/08/2020 11:52:09 AM [facility] M54.5 Low back pain Low back pain Diagnosis 07/17/2020 10:40:00 AM [facility] Z01.812 Encounter for preprocedural laboratory e xamination Encounter for preprocedural laboratory examination Diagnosis 05/28/2020 08:49:54 AM [facility] E28.39 [id number] Estrogen deficiency Problem 12/16/2020 12:00 :00 AM EDT eCW1 ([facility]) G47.33 Obstructive sleep apnea syndrome Obstructive sle ep apnea syndrome Problem 06/11/2020 12:00:00 AM EST MEDENT ([facility] ) N32.81 [id number] OAB (overactive bladder) Problem 05/16/2020 12:00:00 AM EST eCW1 ([facility]) R32 [id number] Urinary incontinence inappropriate for ag e Problem 05/16/2020 12:00:00 AM EST eCW1 ([facility]) F51.04 [id number] Psychophysiological insomnia Problem 04/17/2020 12:00:00 AM EDT eCW1 ([facility]) Surgeries/Procedures Procedure Description Date Indications Data Source(s) ECHO TTHRC R-T 2D W/WOM-MODE COMPL SPEC&COLR DOP 05/28 12:00:00 AM EST MEDENT ([facility]) OFFICE OUTPATIENT VISIT 25 MINUTES 02/27/2021 12:00:00 AM EDT MED[facility] ([facility], ) POCT GLUCOSE, DOCKED <td>POCT GLUCOSE, DOCKED</td ><td>Routine</td><td>08/14/2020 4:20 PM EST</td><td></td><td> </td> 08/14/2020 04:20:00 PM [facility] POCT GLUCOSE, DOCKED <td>POCT GLUCOSE, DOCKED</td ><td>Routine</td><td>08/14/2020 11:22 AM EST</td><td></td><td> </td> 08/14/2020 11:22:00 AM [facility] POCT GLUCOSE, DOCKED <td>POCT GLUCOSE, DOCKED</td ><td>Routine</td><td>08/14/2020 7:20 AM EST</td><td></td><td> </td> 08/14/2020 07:20:00 AM [facility] BLOOD COUNT COMPLETE AUTOMATED <td>CBC</td><td>Routine </td><td>08/14/2020 4:48 AM EST</td><td></td><td> </td> 08/14/2020 04:48:00 AM [facility] GLUCOSE QUANTITATIVE BLOOD XCPT REAGENT STRIP <td>POCT GLUCOSE, DOCKED</td><td>Routine</td><td>08/13/2020 9:52 PM EST</td><td></td><td> </td> 08/13/2020 09:52:00 PM [facility] GLUCOSE QUANTITATIVE BLOOD XCPT REAGENT STRIP <td>POCT GLUCOSE, DOCKED</td><td>Routine</td><td>08/13/2020 4:14 PM EST</td><td></td><td> </td> 08/13/2020 04:14:00 PM [facility] RADEX SPINE LUMBOSACRAL 2/3 VIEWS <td>XR SPINE LUMBAR 2-3 VIEWS [id number]</td><td>Routine</td><td>08/13/2020 1:46 PM EST</td><td></td><td> </td> 08/13/2020 01:46:00 PM [facility] GLUCOSE QUANTITATIVE BLOOD XCPT REAGENT STRIP <td>POCT GLUCOSE, DOCKED</td><td>Routine</td><td>08/13/2020 11:26 AM EST</td><td></td><td> </td> 08/13/2020 11:26:00 AM [facility] COVID-19 PCR <td>COVID-19 PCR</td><td>Rou kamille</td><td>08/13/2020 10:35 AM EST</td><td></td><td> </td> 08/13/2020 10:35:00 AM [facility] GLUCOSE QUANTITATIVE BLOOD XCPT REAGENT STRIP <td>POCT GLUCOSE, DOCKED</td><td>Routine</td><td>08/13/2020 7:33 AM EST</td><td></td><td> </td> 08/13/2020 07:33:00 AM [facility] BLOOD COUNT COMPLETE AUTOMATED <td>CBC</td><td>Routine </td><td>08/13/2020 3:40 AM EST</td><td></td><td> </td> 08/13/2020 03:40:00 AM [facility] BASIC METABOLIC PANEL CALCIUM TOTAL <td>BASIC METABOLI C PANEL</td><td>Routine</td><td>08/13/2020 3:40 AM EST</td><td></td><td> </td> 08/13/2020 03:40:00 AM [facility] GLUCOSE QUANTITATIVE BLOOD XCPT REAGENT STRIP <td>POCT GLUCOSE, DOCKED</td><td>Routine</td><td>08/12/2020 10:59 PM EST</td><td></td><td> </td> 08/12/2020 10:59:00 PM [facility] GLUCOSE QUANTITATIVE BLOOD XCPT REAGENT STRIP <td>POCT GLUCOSE, DOCKED</td><td>Routine</td><td>08/12/2020 6:05 PM EST</td><td></td><td> </td> 08/12/2020 06:05:00 PM EST [facility] RADEX SPINE LUMBOSACRAL 2/3 VIEWS <td>XR SPINE L-S 2-3 VIEWS PORT-OR [id number]</td><td>Routine</td><td>08/12/2020 4:50 PM EST</td><td> Lumbar radiculopathy</td><td> </td> 08/12/2020 04:50:09 PM EST Lumbar radiculopathy [facility] Lumbar radiculopathy ARTHRODESIS COMBINED POSTERIOR OR PUTTY AND PATCH WORKER OLATERAL TECHNIQUE WITH POSTERIOR INTERBOBY TECHNIQUE LAMINECTOMY <td>ARTHRODESIS COMBINED POSTERIOR OR POSTEROLATERAL TECHNIQUE WITH POSTERIOR INTERBOBY TECHNIQUE LAMINECTOMY</td><td></td><td>08/12/2020 12:47 PM EST</td><td> Lumbar spine instability Lumbar radiculopathy Weakness of left lower extremity</td><td></td> 08/12/2020 12:47:00 PM EST - 08/12/2020 06:14:00 PM EST Weakness of left lower extremityLumbar radiculopathyLumbar spine instability [facility] Weakness of left lower extremity Lumbar radiculopathy Lumbar spine instability GLUCOSE QUANTITATIVE BLOOD XCPT REAGENT STRIP <td>POCT GLUCOSE, DOCKED</td><td>Routine</td><td>08/12/2020 11:23 AM EST</td><td></td><td> </td> 08/12/2020 11:23:00 AM EST [facility] CARDIAC REPORT <td>CARDIAC REPORT</td><td>< /td><td>08/08/2020 4:02 PM EST</td><td></td><td></td> 08/08/2020 04:02:23 PM EST [facility] LAB RESULTS (OUTSIDE/HISTORICAL) <td>LAB RESULTS (OUTSIDE/HISTORICAL)</td><td></td><td>08/07/2020 4:17 PM EST</td><td></td><td></td> 08/07/2020 04:17:56 PM EST [facility] CARDIAC REPORT <td>CARDIAC REPORT</td><td>< /td><td>08/07/2020 4:15 PM EST</td><td></td><td></td> 08/07/2020 04:15:42 PM EST [facility] ECG ROUTINE ECG W/LEAST 12 LDS W/I&R 08/07/2020 12:00: 00 AM EST MEDENT ([facility]) uro PVR (Post Voiding Residual) Bladder Scan 0 12:00:00 AM EST [facility] ([facility]) SURGERY CASE REQUEST OUTSIDE FACILITY ONLY <td>SURGERY CASE REQUEST OUTSIDE FACILITY ONLY</td><td>Routine</td><td>05/12/2020 5:56 PM EST</td><td> Lumbar radiculopathy Lumbar spine instability Failed back surgical syndrome</td><td></td> 05/12/2020 05:56:57 PM EST Failed back surgical syndromeLumbar spine instabilityLumbar radiculopathy [facility] Failed back surgical syndrome Lumbar spine instability Lumbar radiculopathy Results ID Date Data Source [id number] 06/01/2021 11:05:00 AM EST [facility] Name Value Range Interpretation Code Description Data Shanda rce(s) Supporting Document(s) SARS-CoV-2 (COVID-19) RNA [Presence] in Respiratory specimen by KEYANNA with probe detection Not Detected [facility] This lab was ordered by [facility] and reported by [facility]. ID Date Data Source [id number] 05/27/2021 06:04:16 PM EST [facility] Name Value Range Interpretation Code Description Data Shanda rce(s) Supporting Document(s) Progress Note [facility] WMLEUk1zPiGZHzMu84/YHCfpWVYdr0CeVVpjOZf0TEcuBABnN5UySUI1uO2vOXD0BFxJUySkXpPsIgDv lbm [file] BVlQVoTSnaYdcg9cqApmTgBPsq/TXZ2+NinFB29hL+dn0KGXlL1KeN/SaIyprRv+2fg4x7O/[place]+on3/ [file] JsB6OXFyWXfuFYLEAu8L ID Date Data Source [id number] 05/07/2021 02:26:55 PM [facility] MR LUMBAR SPINE WITH AND WITHOUT CONTRAS T [id number] RESULTInterpreted by:John March MDEXAM: MRI LUMBAR SPINE WITHOUT AND WITH CONTRASTINDICATION: Spinal stenosis, lumbar COMPARISON: MRI lumbar spine 05/28/2020 TECHNIQUE: Multiplanar multisequence MR imaging of the lumbar spine was performed prior to and following the intravenous administration of gadolinium contrast. Exam was performed on a 1.5 Cher GE MRI unit. CONTRAST: 20 cc MultiHance intravenousFINDINGS: Vertebrae: For the purposes of nomenclature, the lowest fully formed intervertebral disc corresponds to L5-S1. Postsurgical changes of L4-S1 posterior instrumented fusion are seen, with superior extension of the previous fusion now involving L4 level. Susceptibility artifact from the bilateral transpedicular screws and interconnecting stabilization rods limits the regional evaluation. 11 mm anterolisthesis L5 on S1 is unchanged. No new malalignment. No vertebral fracture. No aggressive marrow lesion.Spinal cord and Conus: The visualized distal cord and conus are normal.Intervertebral discs/Spinal canal/Neural foramina: Chronic L2-3 and L3-4 and L5-S1 disc desiccation are seen, with stable high-grade chronic L5-S1 disc height loss. T12-L1: No disc protrusion, bulge, central canal, lateral recess or foraminal narrowing.L1-2: No disc protrusion, bulge, central canal, lateral recess or foraminal narrowing. Mild bilateral facet arthropathy.L2-3: Small dorsal endplate spurring. Ligamentum flavum infolding and mild bilateral facet arthropathy are unchanged, although no central canal or lateral recess narrowing. No foraminal stenosis.L3-4: Stable shallow chronic dorsal disc bulge with ligamentum flavum infolding and moderate bilateral facet arthropathy. No significant central canal or lateral recess narrowing. Stable mild left fora beverly narrowing and interval new very mild right foraminal stenosis.L4-5: Interval posterior fusion and midline laminectomy decompression. No central canal stenosis. Facet arthropathy and ligamentum flavum changes contributing to moderate left lateral recess narrowing. Stable mild broad-based dorsal disc protrusion. Mild to moderate right foraminal narrowing persists, although overall improved. No left foraminal narrowing.L5-S1: Stable 11 mm anterolisthesis L5 on S1 with severe disc height loss. Thecal sac is decompressed with midline laminectomy. Severe left and moderate to severe right foraminal narrowing with bilateral L5 nerve flattening is unchanged.No evidence of discitis.Soft tissues: Hypointense T1 and hyperintense T2 signal multiseptated and mildly complex peripheral enhancing 30 x 16 x 35 mm posterior paraspinal deep fluid collection at the L4-5 laminectomy defect is new. No significant associated mass effect on the dorsal thecal sac or specific canal stenosis.IMPRESSION: 1. Postsurgical changes of L4-S1 posterior instrumented fusion with laminectomy decompression. Interval new 30 x 16 x 35 mm mildly complex the left posterior paraspinal fluid collection at the L4-5 laminectomy defect overall favors a post surgical seroma, versus less likely infectious fluid collection or pseudomeningocele.2. Stable 11 mm anterolisthesis L5 on S1 with moderate to severe bilateral foraminal narrowing.3. Moderate L4-5 left lateral recess stenosis from facet arthropathy, ligamentum flavum changes and stable mild chronic dorsal disc protrusion. Overall improved mild to moderate right foraminal narrowing.4. Stable L3-4 shallow chronic dorsal disc bulge with stable mild left and interval new mild right foraminal stenosis.This document has been electronically signed by John March MD on 05/07/2021 2:24 PM Name Value Range Interpretation Code Description Data Shanda rce(s) Supporting Document(s) ID Date Data Source [id number] 05/07/2021 08:50:59 AM EST [facility] Name Value Range Interpretation Code Description Data Shanda rce(s) Supporting Document(s) Creatinine [Mass/volume] in Blood 0.8 mg/dL 0.50-0.90 [facility] ID Date Data Source [id number] 03/30/2021 08:21:41 AM EDT [facility] Name Value Range Interpretation Code Description Data Shanda rce(s) Supporting Document(s) Progress Note [facility] CMMJRs4lFgCODoDg66/ILStdXZPkv5JiOHuhOWu8JWqqDHKqA9QdCDX3gG2tAZT2JQzUInKvOhTqMYM7 m [file] UMESmvKwy1pikmUlzuWtHxWR+Juan J+A0CI7RUgwm4aAK+s8urQwUA0MpYnF1RfUPfUAhoUuzE8YpKqgeJ [file] Maria T+9CagXSV0y3tw4z+lQVTLRYY/zxz9qN7mRfKx/ [file] oB9ZQQN9Eybo+progressive care unit registered nurse/6W1KaPQqfHZgQmp0mbc2dAsAinuVnQ3hrmyjMGshQgCrwyDF6gKG3suDg6plFQnk [file] ttMvSTt0UpRfRb2CJMFIX0XMLe== ID Date Data Source [id number] 03/24/2021 11:03:54 AM EDT [facility] XR SPINE LUMBAR MIN 4 VIEWS DOES NOT INC LUDE BENDING [id number] RESULTInterpreted by:Peter Kirby [facility] SPINECLINICAL STATEMENT: Status post lumbar fusion. Low back pain.TECHNIQUE: AP, flexion-extension, and neutral lateral views of the lumbar spine.COMPARISON: 12/04/2020.FINDINGS:Since the prior study, there has been no significant interval change. The patient is again noted to be status post lumbar fusion at L4-S1. Bilateral pedicle screws with interconnecting rods appear intact and well aligned. There is persistent grade 2 spondylolisthesis at L5-S1, stable on flexion extension views.Normal vertebral body heights are preserved.The remaining intervertebral disc spaces appear unremarkable.IMPRESSION: Since 12/04/2020,No significant interval change. 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/xzkHEgTvbcPx250aPtmBPeToztcpeBv AtVoTXMZhmNhd98ZGNGRYhyndhZhSwl7vi6dHHABR2 Xow3obXuv/M+oKw/k+4s3rC6t0oQDOA7BXryoJ3PzRnyM6dYKw/vAHjJtmdd+0pcCcX4aHndm3z0rd9e DAXuw80GXtr1apF6bZLAtt2vbKF4a2FFVmhb7T4OQIWYm2z4M8P33bAr11drRYJfCF8vo/EcXyaw3VA5 ys1A8zO8kYfHOHM2Z794h7jARblT705/y07/g5S1mj [file] M0Qa/r7bVOyV7CLKU3Jiuz+progressive care unit registered nurse/4B7VqYBylAZjTny5xpj8oUxQvecZoA9hrobzPFvzFqDzbhEY3qPW7i [file] AxMDEzMCAwMDAwMCBuDQowMDAwMDQwNzgyIDAwMDAw VT0SDzKzLAAbFWNeHGCmGHXgXBRnzm5DFEZoCET7CJFtNTZuDJSoEQSeOKlsVUBmVTGyLqyxAKWgLDMd IW9FOjShFEPhAIJ6RqGkEQHwVZFsgw1HCZOkLKY9ZRI9KpIaMWEsYSAaILoxSORkNJZnSFZ9UAKhZRLg ZC5AVhAxNVWrReUnKLgeAZGbEPNdhi0QOUXpOJD5DW PbKFZaEEOeZWEsPJnyEKIsQCGnQlO6RRFoSQJlYS6MElZtATViNeD3RQAvEXOeSFBxnp2ATEHwJLX0LN u5SnVoBTZiMHPdFRhfYRJxTGXiOELoNGXxDFJiVO4NSoTsFCZpRyKpPQduZGVmNETcro3PONXcHHS7Jf H1PETjSXZiVYEyRElvWYQzVMIoTuexHUVsRTMoJW5G VaLcXDWhClK8MjXjFVUkYLIqxk2NNEEjFCR9DJF0CrNfCTZwWYQlMNmwYVHxZUI5MaY0ECVyZOJmCC0B LnLjYVWnFgF8TIRuRYUhGTHxsw5AvLTunWoviv5YPPhCUq0DrRmsZNF5HFslIl7elKOvIWEqKXUVJi3J jlAgQUDsWLRFBHmkXGEuYNiaOSPhLCVoZsSgBOV2BI FiRgUkPOdgGtRkPZE2SAI0TjV5QaN5IIE7KIBzUbL5KZSmOGTnCvS3RUO3QnNiUbKeNlu+DJ2qMEp+Pg 8Vk5QnlnG4fqGwNQz8QUyrWg1MFWYQH2IKEs== ID Date Data Source [id number] 12/14/2020 05:58:40 PM EDT [facility] Name Value Range Interpretation Code Description Data Shanda rce(s) Supporting Document(s) Progress Note [facility] WDONHp8jYdVVBaTz46/FBKeeGBTwl8LdHReoUHk4RHzyVUVpF7NjKDX2xC0uQAV8FGaJTjIyTxMkJcGm lbm [file] r0f/CxPM6IWPVTOnKDKsyIWrx1kiSVak3sBELpXuSAaUdC+COPmzbGi+LAXMI/7WsvA/fYujDLzZX5MMKt 3kzP9vSAXyCtVC99ZEpoystL9gne9D/aTSs6galrqX +ci6uJdO35w5mS3nxQd7X+jh1tNnbsVhg/hZ7byw15kZ+G6r+HWxWL4phGfvknF7P5JIckUQaBWi1Nw3 VXux8PKYI8k3Z24iO6NsPKyeIRedG9ROBcbX+RYEK89MgdtE+Jp8nO+/vf3t34EfxDdxXdZLSDATniMt agTsIufbmEYvF5yiZKhM9GGowST6lUyajfMfTG7jK/ c9gv67zRCKuNNNDBN6t3qdVxMx5Jp/PtO96d4gG32zhN0d1ekSsyo3rrg5xaMmKa8b/Khq3BcMloidqm 28cPGCKOGEJHg4md6vYg5hnsDGnMrCXrFU8vVhU2TDWHx2Rngg/b7UQNzNBgvWqQQLZ6YimJtHCIJ3nJ 3VzH0/hwqleEu7JVuBBGcMYd3OPnrEmc0tOLF7jwKX NPXXq1NfAPsICIRsrU48rVn5bYWvNnAdnm0SenBUadFlT2AwTCb29sjdcy0r17On0iz1r8zgzq7IAS6w OyqbRvZuBwCe7LKxndJn2ftvuqIklASTViPhUcEYFHAPW60DK1BxpSFtFOBn19GJcEmVJ2ezVNhE0AHJ WUHygsO9GCJucED5V1J1hhUKbcbrdV1keDFL7DY3p4 44eaA6NhKyv03QyX5kCq9qJMxPhBqnQemDGxI5YYEdjtL4yDktmNKB7T1pvhvWQnCGc9j4sjTNlna3Dn CeeiJQqmNgQwMzZkCx/olVkZSVFuDKtK+iDuPlus94U2/BQ3bEE700v/M1sCU/lPvf0822keLkFKMPWH iOuGyezX5eSQmRxnF6mDRIal7+MAFt9TAcfkAKSzj4 Bus Van Driver/aIyYDwEIdldK5WIDgFrT4S0Tmjm4k1KCeNBYfMrwvyfnuYGzdvRsSKchii8U6d3mhMuySM6t9czUB [file] Y0imRSuihrmfu0zVauT53p4cs8HYmFe6gf1JZizq1ru7RatXd29+uG302zOhI3MNFu5qR0IIL9To+shahram Pa/H5aj/yXB0LtUTDcdENjWggKQHo8PsyG2T02W+krSCEy4ctAV4h3MZMMqbnXq4Z6DtAUVnQxb4ey3N J0TphpnuApXPRF1Zc2Mvda2vk3B1mbbqJjTKKA0FyF FhhByPrt3kJFbbs+9GnEuhbtOYCJSI0lcPJ9jLiXbeeP4SB7HJUMiJ6zpLdE9jAS1LTcYbZPwECg62nV NZlvm4cf2XXYNoX0yALRxLG1LwZkgF2p1Iy90LFUz6XGPjqgz7vi/2ifeALA64Hy3PxqyXREkqZn7hK0 MNmepEg9RWlzWm/KVipjHtHvhRxme+JealWraKy+lD QdlDBXCMkzf3UVRFu//TF2b0X+FlvqAzG4K1C58lp6EyiJ9ZOgrsQX3aYgEBO0CTaF9Qmt5JFWXHnYUu 7XfS/zADC2jt/7m0fDchqWaB3qwWfypIZzSdFzePXAm9VdOtVbTcqG57UfIVTfaOrhe7JW/ZcyBYU6os uYEpD78Uf8frpNwUJh/utiI4C4BfYXl+Vfw7+JZqsj bR5zCx4wLLbA2bQ976hLG6XokR+3MRgLxdsk8Xw8wPklmeTEkvDX0o+zP7RLyUTEcVIJs4MzuN6Njw9F 7zndN0BlKKJrlq3u3aCn4AEVV9lEv3kxlJ2+LvJxGvUBGol2+z1IwqVQbaHT6hFmoe+gVde8hXU8gymN Rq5Lw/hRvieNUoG7B7qDSrReyKaB/yd93pRGhzoOlu WQ15pYYGyqDcBWVfs8IVQCoO9DIcKYLmrqaGoPloqRAeH5rvVerb6WaMRiGoY3miWxUMK5LB8b8OrJL5 0i3EaUvqtzozUWUv5V+rD2CoXV1q6kAao2e+8m5VCZy/8q7OdNpWgyB9RldaG+t4NjWC6t0I/X7Z8F+j cM9Bft+zqRufiQZsTAyAnD47TUKrC2MjpZyE8C/vice president of compliance [file] C6BLA1O9W1Kpe1LUwsQQDgYTZ3UwCxSfV1QU1vMQ ANCj4+XGplaDTssVevVICNWaT3HIV2NKwfTQJDZl0C ID Date Data Source [id number] 12/04/2020 07:23:35 AM EDT [facility] XR SPINE LUMBAR MIN 4 VIEWS DOES NOT INC LUDE BENDING [id number] RESULTInterpreted by:Peter Kirby MDH[facility] SPINECLINICAL STATEMENT: Status post lumbar fusion. Low back pain.TECHNIQUE: AP, flexion-extension, and neutral lateral views of the lumbar spine.COMPARISON: 10/10/2020.FINDINGS:Since the prior study, there has been no significant interval change. The patient is again noted to be status post lumbar fusion at L4-S1. Bilateral pedicle screws with interconnecting rods appear intact and well aligned. Normal anatomic alignment is maintained. Normal vertebral body heights are preserved.The rem aining intervertebral disc spaces appear unremarkable.IMPRESSION: Since 10/10/2020,No significant interval change. Status post lumbar fusion at L4-S1, with stable postoperative changes.This document has been electronically signed by Peter Kirby MD on 12/04/2020 7:21 AM Name Value Range Interpretation Code Description Data Shanda rce(s) Supporting Document(s) ID Date Data Source [id number] 11/01/2020 07:53:07 AM EDT [facility] Name Value Range Interpretation Code Description Data Shanda rce(s) Supporting Document(s) Progress Note [facility] OVABFe2iHkSMQnUs12/UJUbuUDCkf7UeDLqiLYz6ZGsdZHSsN8HnFXR9oI2pDUD3OQbYKdPuHlWqORI1 lbm [file] AgICAgICAgICAgICAgICAgICAgICAgICAgICAgICAg ICAgICAgICAgICAgICAgICAgICAgICAgICAgICAgICAgICAgICAgICAgICAgICAgICAgICAgICAgICAg CZIvJF7SFHJdEPSqISVhSHUaZQSrWTPzDWKlCSOvWUOzVNGwGCTsCWNkSJKjTUVzUEDfXKBxCSLdVLUw ICAgICAgICAgICAgICAgICAgICAgICAgICAgICAgIC ScTQYlXUHpICJkTRFdCK0HMCRoNSWwMOBmQFHbGRRzHXLsPBYoZVIqIBPdPXDjBXXsVAVsCNCiIHHzLX QnWQTlHDHoRBIvPSOtSTHaFGCpQPChLLZwYABeSGNwUVBfTWHnZFFdMOOzZRYqDUArJJGzNBClIA6GEK AgICAgICAgICAgICAgICAgICAgICAgICAgICAgICAg ICAgICAgICAgICAgICAgICAgICAgICAgICAgICAgICAgICAgICAgICAgICAgICAgICAgICAgICAgICAg BBKoAILqGA8GENOmVYZzPXXfKMRfUVTeONTuGNMxBKQhLVCySHZoYWZrNWMaBTHmYYYkTYZmQSSxVJQx ICAgICAgICAgICAgICAgICAgICAgICAgICAgICAgIC EpWEKvJNLuXIIhOULqHYArWB2GINSkXVUmNUCpRJCiTLGeCRJtAPQhOYHkMHJxNXZyMSYeRUSdSSVdKL AgICAgICAgICAgICAgICAgICAgICAgICAgICAgICAgICAgICAgICAgICAgICAgICAgICAgICAgICAgIA 0KICAgICAgICAgICAgICAgICAgICAgICAgICAgICAg ICAgICAgICAgICAgICAgICAgICAgICAgICAgICAgICAgICAgICAgICAgICAgICAgICAgICAgICAgICAg KKUtDNTmQFRnCR6GCCUuLBTfMVDxGFCwXRFvKARxQGLpZWJwAXEyTYHxSSGwFPKvBTMcKWScQKTnYZSw ICAgICAgICAgICAgICAgICAgICAgICAgICAgICAgIC TfIJDvEMDaMDHwAGIvGSWeJGAjUC7LPBLpFCLjAMEjAAExEVTqUXAfFLJjVRRoSNAuRFLhJCTxJFHvJT AgICAgICAgICAgICAgICAgICAgICAgICAgICAgICAgICAgICAgICAgICAgICAgICAgICAgICAgICAgIC NrOY6TXH52tYZxx7J7XLGgBN8qoey/Oq4ICLmupcMo kHCmOR1ULyJmKN5ywc4VNvPlNO5dhp4UPWqYWgMiU7U7vVXgLSHnOXFMKqPjA69hKJfuNx56ODjjDXLj OeOmNOg3Uo4KJlGoK3mlJTMfMaE9FORvMvH4KMDyRgYaSEfxRP5Cz8PpbUHyEZm+Cd7DWG0wk2RcUJqm LmZuVA7ivt0QFIoMPoAsH7AendU1HWAhWVEhOe4NDV CyKECqySPwOrCtHMRXDbAcI5NbeC83JGFVPu0+KHmrydBkQimJTuBeVYXvq2JiEPa6EF4DBIKuFFn8uJ PuIEXnA1Gxn7RfHn74VXAnDkcmLXsbDCBOQYD0fviaCOPyFDCoJY6yQl3dYWFvIRYfWpSgETAPFA0QME QbFBUmyMKvSNBmSPEUZD1AZYydRCQ6UWRiavGanZTm AHjpAN8PGVUpioPsSuKrQJSCYDb+Aj2EDL0xt9YqHQqmMOCbKV6bcx6GHSoPNzRqG1O2wXLzZ2J9DOvm Vv8FGIAgTWVyLbKrYGZEPYrqJA5TAZ5zpsQ9SF9QiEUjBDXxFBOyjHYcSCl2S25wlPGlQHtzEX9MXPU+ Luis+Ic1NOBPfHXLkTEAmAxQfJWTMMaUqF8OnW0OXq0 PmG8YbEU39pMhzsoIgCGeyYQ5PAM0wAYNnQDMMCY9LrCRvzJ0rotQsKpGiHZXWStTiJ07qdMJkLTUuRJ AeLBAwLc5NBAHdQ6QlohDooAqhlePsSKFyJPRVMS3TCDzjvbTggPDgkIgjFS08hQjfRM5AEi5MUrBmTO 5llp0DmRViTd9UDVNdZD8BBLWyTREcCTJgCQH8SYTp InBsMNgaABRfBEMeKWF1UZQhQHBxMJ7QRyYyBQYmBvM6BPRcPEIzBJLdzy4NUNVbUCO2UZE6EvUuEMKb ZJNjPSjbIOQyABUvRZP3AJDbCFQzQU7VWsSpGHKxQHMvIGKvHYJeIPCrgn0RCMFePVQfWMTqKQCyEYYe YUWvFUqjWFFhMTJ2UCNiPULdMABaPX4DJgPjXLCgBD qjLbweXSUyTRCaxo2ITXIqSYPrYFLkIfUdYNQyYKSlQRhaGTIzYQJ9UIOiGJTaALLrQH5DZmFuNLXuVL x6JGUdTNBnUVQnje7HQTFrPXRcRJD8GeRmDHWgWLRlQUdzJGVsCHZ9EzL7VSOoCOKuVL6SRySuISDeRC o2CKTtXJBuYTFshl5OCTSkDSY3MKE3ADOmGXTzYHNs ZYtfQXFpYGCqJlp1FUFjXDEwDL1VNyQuNDJlMRI8KYQpQXLqJRIwzp8XEQSpCNX2PuW0VMEeJCLtXCZz YPxhIWYcWNYbJDC2SCCnZFXtDU4IEbTeLBAeXYv3AJJmPWSeJRZfxm4RCTFeUXL4RKQ1VHOpSTAmXSOw DLreCDEuBNMvQHT3QGJzWIMsUY2TXaZoPJErObB0Lu EfKVAeTLSamf3ORZIuDOI6RAS7BKFjCBUrPFOaDUggWRAaKYOwPKAvQIYiRZMkWP6MGwTnVKZmElUcGF RzEVMaIHBgex2TBXVqFUE1UfI0RVMrZSInKYLwSZfqSWTgXRYqWuP6SFGeJOMbOV5SHdVdKUSnCbZ1UY GwPKZnFLShnh3UPAYnKHE1NwJ1NURaSSDgYHAcSBdz HVHlWIB5ANAkAYYiLTRnYP2ADhQlAROuSyD6CywjPVArPOExzx8HSVAhDHG2KUPaXKXyPNYpIMLkWDlm MNAfEBI6WxzwFOBlZDFbIJ7WQwVpHFfwXCBWYig1JZjrK5j6HGUgHP6IL0Rvm2AcUxUgQIWQQGzuDY2v omEtZEMeIk9JY8mQZqjyTwLfQPSuGrNpXFGyQRQuYT SlYXI1KwZhPtA1TkE6QC5iRWO8IiE4YwBbYGVhWuT5ZsC5FCKhVKOwGTM9AgutHUodBhIbVA6BNx6IJa B4YRY2jJDlHk7IRzNxSiqGKzNcBK8ICHu= ID Date Data Source [id number] 10/12/2020 10:49:05 AM EDT [facility] XR SPINE LUMBAR 4-MORE VIEWS [id number] RESULTInterpreted by:Peter Kirby MDH[facility] SPINECLINICAL STATEMENT: Status post lumbar fusion. Low back pain.TECHNIQUE: AP, flexion-extension, and neutral lateral views of the lumbar spine.COMPARISON: 08/25/2020.FINDINGS:Since the prior study, there has been no significant interval change. The patient is again noted to be status post lumbar fusion at L4-S1. Bilateral pedicle screws with interconnecting rods appear intact and well aligned. Normal anatomic alignment is maintained. Normal vertebral body heights are preserved.The remaining intervertebral disc spaces appear unremarkable.IMPRESSION: Since 08/25/2020,No significant interval change. Status post lumbar fusion at L4-S1, with stable postoperative changes. This document has been electronically signed by Peter Kirby MD on 10/12/2020 10:46 AM Name Value Range Interpretation Code Description Data Shanda rce(s) Supporting Document(s) ID Date Data Source [id number] 09/01/2020 03:21:32 PM EST [facility] Name Value Range Interpretation Code Description Data Shanda rce(s) Supporting Document(s) Progress Note [facility] HISRXn3hNpZKZgVg11/FTXepJEBxl4DnUEobNDz8YRpoHQSjR7KoCTL1bE6uTVX3VZyMGzSmItInMuY9 lbm [file] pYKbmQLeZssBc5ZtaAOlc9Kgoa9yx0ffmYI1cQ/yhXycT/Cj+If5Uw3k/clinical academic allergist+l0R17McrR3GYnoJVcq3f [file] gEe5mR6Ktfwl3icrsfdtwBAzYe9nT7Ad/k8eFVvA1AGWC0Ubzn+progressive care unit registered nurse/3O6GwPHfkJLtViz8bqu7yNfDqi [file] 0gDQo+Eh0Ru0JomjM8omKdVAi6OEM5Mf4WJAAQR8NKJy== ID Date Data Source [id number] 09/01/2020 03:17:14 PM [facility] Name Value Range Interpretation Code Description Data Shanda rce(s) Supporting Document(s) Operative Note [facility] QTMRJf8kFuMSGkCs06/UOQexRGGrn3WfEJhwRRu3GPgfKQYjR9SqBPE6zA0oVLV9RIySPvCaEiZoJbT5 lbm SgBkoHZwHrERQxRzzFCzVrVAiuUrozfJPqBG7HfHP0GACzL28gFBIcPQWzP4KoQKLiIZA+Uf2WXCSbpQ LkCM7TImxF4X8zBkjCEh5jdo6LKLolzROGwbj+5CwFJUkXMDkaDyBmQvWL1vSoBDAs7B/fvto+Nc0Xn+ 2CVwEo7JXC3J5yfb1D6UsT//tNHQTasiyV/l/9GkSO urpTf/+bWj/sHceV7t0mY1DIQQv6qwaB1NzU/kOZZjUXQvSJFa7AnsIXAjZ9xzjZPF+NJntHi/l4cvu4 Parker+Uu+eb5nDvmDqhrZEcUaq2/OiTz/9pEb/Ew8Ura3Ys834nl1PbXL+kGFfvYl72KVnVcTuM6vqnswX [file] RXbjSLv7YG5RUFSNZ8ZUQk== ID Date Data Source [id number] 08/27/2020 07:52:32 AM [facility] XR SPINE LUMBAR 2-3 VIEWS [id number] RES ULTInterpreted by:OBDULIA Butler SPINECLINICAL STATEMENT: Status post lumbar fusion. Low back pain.TECHNIQUE: AP and neutral lateral views of the lumbar spine.COMPARISON: 08/13/2020.FINDINGS:Since the prior study, there has been no significant interval change. The patient is again noted to be status post lumbar fusion at L4-S1. Bilateral pedicle screws with interconnecting rods appear intact and well aligned. Normal anatomic alignment is maintained. Normal vertebral body heights are preserved.The remaining intervertebral disc spaces appear unrema rkable.IMPRESSION: Since 08/13/2020,No significant interval change. Status post lumbar fusion at L4-S1, with stable postoperative changes.This document has been electronically signed by Peter Kirby MD on 08/27/2020 7:50 AM Name Value Range Interpretation Code Description Data Shanda rce(s) Supporting Document(s) ID Date Data Source [id number] 08/16/2020 03:48:53 PM EST [facility] Name Value Range Interpretation Code Description Data Shanda rce(s) Supporting Document(s) Discharge Summary [facility] IRBPXt3cRlNTMqLl78/ZVBrsFCQsn2BgMNmvWGb1BDikNTKtK7FjAFK1eG8lBNT3XDoMCaKcQpLvHmQj lbm [file] [employer] Stations+wGCyto5ka69bVh5+4GZGVAD9YfOHqHHH9fI7fKjjXC7bD4EGCNdBYMSF21cxZ8d52s/dTHNA+/sq/ [file] MZ3vWWFGRv7+QVgunVZolVscPHKXSlM6TgS9CAlmBPCWQh9N ID Date Data Source [id number] 08/16/2020 10:29:01 AM EST [facility] Name Value Range Interpretation Code Description Data Shanda rce(s) Supporting Document(s) Progress Note [facility] NLVVUt8gXgSSJtFe99/EZMxcAZNxb5YoIKquXFl5EIvwKBUwV1ZkMDW2yD4nUWB6PWnNUfSpOgVeGsRb lbm ZwWdcXCzTyZJUhPrdRYgZeBQduFytsuSHfZV2WpEM2VOKrF29qZMEfWLJfB5SzBRWtXFB+Is7LRITsyZ YuHE0WIxfV6U7oBjkDXq5+6d3HD293ZfQP9NoGfOqWL2mvTPtSFJxW01WIQOGRPicnRiB/9rt3D6zf2u v9IiJJ05xwP18cga7D78tuk3bkf/hsS5anPz1VvIw/ 3/3aFv7ocTO6/W/Zxzma8XSp/vT0Za44hwOZ8Qh5V72M/OQVuqH32dTo2twP0/zlhZNEgbOZupFzOtp4 HVnDZux7r5m8E+wsJJbUrL9w/ylr7QBN+fRW9tmykdqg/s/ZO3V+3Z5DjGHo2iZ/Q5bcagOUbSi6a85L nU55aIwjV5dmEsfkETGjgp76Q/VjL2R/OdGQp73V+S UPjxoA4Tueig90b/sd1GI0jZ7UnYFYpJxg9bvx3lM/d/Ca0koeCj4FHiLzT5dbApdH63lg6B67vzJVGC fBszGgWefDrutIeQOW4FI3bl4XPXPMb7sZolfZMYu/MlJfJ2k+khN3R+GX1uj9elhpV1ybEwdWt5e6mc 6yGFNoV8M1072dT2dFtVWJhF6O8cr22h8FHm8Rvprk fIxCl6eEmtmCp6k6X8LMl+0vCffBN6Eu7RoC4/sCHwytIH4VxL8Os/0QCf1lu0qhWdoX/Fl5BRpr39zj AF4oK2yUdms7IpGeoq09rxrKNXekPLJ67Tai2n3bSWIiG6TFfCqgwhm3N07HZe/YJVyACAKT67Ffx4e4 k577noo3Pyzb149s63u1j7rf5vMwa6a+v7d85qh4sR [file] José/Q8O534WWmTd2KzWU+iI6psnD640NZlWmNxjsHa3wQs28ujyNDHsHro7wunWrWaNxng94C6ZzJ2MP [file] JnIfFAZ7IrAjOyd0KAGtWi8jMGMSLl7+FIeqwYDalFdaGEBUAdZ9MAqrHXboGBBKJd5N ID Date Data Source [id number] 08/14/2020 04:22:25 PM [facility] Value Range Interpretation Code Description Data Shanda rce(s) Supporting Document(s) Glucose [Mass/volume] in Capillary blood by Glucometer 97 mg/dL 70- 140 [facility] ID Date Data Source [id number] 08/14/2020 11:24:49 AM [facility] Value Range Interpretation Code Description Data Shanda rce(s) Supporting Document(s) Glucose [Mass/volume] in Capillary blood by Glucometer 104 mg/dL 70- 140 [facility] ID Date Data Source [id number] 08/14/2020 07:22:55 AM [facility] Value Range Interpretation Code Description Data Shanda rce(s) Supporting Document(s) Glucose [Mass/volume] in Capillary blood by Glucometer 93 mg/dL 70- 140 [facility] ID Date Data Source [id number] 08/14/2020 05:44:57 AM [facility] Value Range Interpretation Code Description Data Shanda rce(s) Supporting Document(s) Leukocytes [#/volume] in Blood by Automated count 5.5 10*3/uL 4-10 [facility] Erythrocytes [#/volume] in Blood by Automated count 2.80 10*6/uL 4.1- 5.3 L [facility] Hemoglobin [Mass/volume] in Blood 8.7 g/dL 11.5-15.5 L [facility] Hematocrit [Volume Fraction] of Blood by Automated count 25.8 % 3 6-45 L [facility] Erythrocyte mean corpuscular volume [Entitic volume] by Auto mated count 92.1 fL 80-96 [facility] Erythrocyte mean corpuscular hemoglobin [Entitic mass] by Automated count 31.2 pg 27-33 [facility] Erythrocyte mean corpuscular hemoglobin concentration [Mass/volume] by Automated count 33.8 g/dL 32.0-[facility] width [Ratio] by Automated count 15.2 % 11.5-14.5 H [facility] Platelets [#/volume] in Blood by Automated count 198 10*3/uL 150-400 [facility] ID Date Data Source [id number] 08/13/2020 09:56:35 PM [facility] Name Value Range Interpretation Code Description Data Shanda rce(s) Supporting Document(s) Glucose [Mass/volume] in Capillary blood by Glucometer 130 mg/dL 70- 140 [facility] ID Date Data Source [id number] 08/13/2020 04:16:36 PM [facility] Name Value Range Interpretation Code Description Data Shanda rce(s) Supporting Document(s) Glucose [Mass/volume] in Capillary blood by Glucometer 105 mg/dL 70- 140 [facility] ID Date Data Source [id number] 08/13/2020 02:32:54 PM [facility] XR SPINE LUMBAR 2-3 VIEWS [id number] RES ULTInterpreted by:Shay Dennison MDLuar spine radiographs, 3 viewsINDICATION: Status post L4 S1 posterior decompression fusion.COMPARISON: Lumbar spine radiographs dated 04/28/2020.FINDINGS: Patient is status post new posterior decompression fusion at L4-S1 with posterolateral morselized bone graft. Hardware appears intact. There is roughly 1.8 cm anterolisthesis L5 on S1. Vertebral body heights are preserved. There is underlying spondylosis with anterior osteophyte formation. A posterior paraspinal surgical drain is noted.There are vascular calcifications. Mild bilateral sacroiliac joint arthrosis noted.IMPRESSION: Status post new posterior decompression fusion at L4-S1 with posterolateral morselized bone graft. Hardware appears intact. Grade 2 anterolisthesis L5 on S1, as described above.This document has been electronically signed by Shay Dennison MD on 08/13/2020 2:30 PM Name Value Range Interpretation Code Description Data Shanda rce(s) Supporting Document(s) ID Date Data Source [id number] 08/13/2020 11:33:48 AM [facility] Name Value Range Interpretation Code Description Data Shanda rce(s) Supporting Document(s) Glucose [Mass/volume] in Capillary blood by Glucometer 133 mg/dL 70- 140 [facility] ID Date Data Source [id number] 08/13/2020 10:35:00 AM EST [facility] Name Value Range Interpretation Code Description Data Shanda rce(s) Supporting Document(s) SARS-CoV-2 RNA 2019 nCoV Real-Time RT-PCR: NOT DETECTED [facility] This lab was ordered by [facility] and reported by [facility]. 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[facility] Patient has symptoms related to [facility] When did you start to experience these symptoms [Date and time] [Phen X] [facility] Patient was hospitalized because of this condition [facility] patient was admitted to ICU for [facility] Patient resides in a congregate care setting [facility] status [facility] ID Date Data Source [id number] 08/13/2020 07:35:38 AM [facility] Value Range Interpretation Code Description Data Shanda rce(s) Supporting Document(s) Glucose [Mass/volume] in Capillary blood by Glucometer 125 mg/dL 70- 140 [facility] ID Date Data Source [id number] 08/13/2020 04:45:20 AM [facility] Name Value Range Interpretation Code Description Data Shanda rce(s) Supporting Document(s) Leukocytes [#/volume] in Blood by Automated count 6.4 10*3/uL 4-10 [facility] Erythrocytes [#/volume] in Blood by Automated count 3.25 10*6/uL 4.1- 5.3 L [facility] Hemoglobin [Mass/volume] in Blood 9.9 g/dL 11.5-15.5 L [facility] Hematocrit [Volume Fraction] of Blood by Automated count 29.5 % 3 6-45 L [facility] Erythrocyte mean corpuscular volume [Entitic volume] by Auto mated count 90.8 fL 80-96 [facility] Erythrocyte mean corpuscular hemoglobin [Entitic mass] by Automated count 30.4 pg 27-33 [facility] Erythrocyte mean corpuscular hemoglobin concentration [Mass/volume] by Automated count 33.5 g/dL 32.0-36.0 [facility] E[facility] distribution width [Ratio] by Automated count 14.6 % 11.5-14.5 H [facility] Platelets [#/volume] in Blood by Automated count 220 10*3/uL 150-400 [facility] ID Date Data Source [id number] 08/13/2020 05:04:19 AM [facility] Name Value Range Interpretation Code Description Data Shanda rce(s) Supporting Document(s) Bicarbonate [Moles/volume] in Serum 26 mmol/L 22-29 [facility] Chloride [Moles/volume] in Serum or Plasma 108 mmol/L 98-107 H [facility] Creatinine [Mass/volume] in Serum or Plasma 0.61 mg/dL 0.50-0.90 [facility] Glucose [Mass/volume] in Serum or Plasma 155 mg/dL 70-140 H [facility] Potassium [Moles/volume] in Serum or Plasma 4.1 mmol/L 3.4-5.1 [facility] Sodium [Moles/volume] in Serum or Plasma 143 mmol/L 136-145 [facility] Urea nitrogen [Mass/volume] in Serum or Plasma 10 mg/dL 6-20 [facility] Anion gap 3 in Serum or Plasma 9 mmol/L 8-15 [facility] Osmolality of Serum or Plasma by calculation 298 mosm/kg 275-300 [facility] Creatinine/Urea nitrogen [Mass Ratio] in Serum or Plasma 16 [facility] Calcium [Mass/volume] in Serum or Plasma 7.9 mg/dL 8.6-10.0 L [facility] Glomerular filtration rate/1.73 sq M pre dicted among non-blacks [Volume Rate/Area] in Serum or Plasma by Creatinine-based formula (MDRD) >6 0 [facility] Glomerular filtration rate/1.73 sq M pre dicted among blacks [Volume Rate/Area] in Serum or Plasma by Creatinine-based formula (MDRD) >60 [facility] ID Date Data Source [id number] 08/12/2020 11:00:41 PM [facility] Name Value Range Interpretation Code Description Data Shanda rce(s) Supporting Document(s) Glucose [Mass/volume] in Capillary blood by Glucometer 142 mg/dL 70- 140 H [facility] ID Date Data Source [id number] 08/12/2020 06:07:11 PM [facility] Name Value Range Interpretation Code Description Data Shanda rce(s) Supporting Document(s) Glucose [Mass/volume] in Capillary blood by Glucometer 132 mg/dL 70- 140 [facility] ID Date Data Source [id number] 08/12/2020 04:50:41 PM [facility] XR SPINE L-S 2-3 VIEWS PORT-OR [id number] RESULTThis statement is intended for documentation purposes only.This exam was performed in the Operating Room by the Surgeon and a Radiologist was not present. Please refer to the Operative note in EPIC. Name Value Range Interpretation Code Description Data Shanda rce(s) Supporting Document(s) ID Date Data Source [id number] 08/12/2020 12:31:27 PM [facility] Name Value Range Interpretation Code Description Data Shanda rce(s) Supporting Document(s) History and Physical [facility] FQMFLm4iKqWHDcHn15/APRqwIEWnv5DjZYioAGw6OTbaIYSiU5JdULN7lV4xATO1UCjFCtBbHoOfOnM1 lbm [file] NAeZN+BregxOnz6uiDG31jAUjSkXcXBuPwwugIDPVEon6e/HQNeV0y779cw64B+OKPpXKAdrAqw+María [file] 7k3uI+4C0sW7An2gKkOnoZRf3JR3tP6Cc0R/clinical academic allergist+c/0oXHqcazWcb4pqsaknj/knhNI0hASQdNn3UEaj2 [file] ID Date Data Source [id number] 08/12/2020 11:26:05 AM [facility] Name Value Range Interpretation Code Description Data Shanda rce(s) Supporting Document(s) Glucose [Mass/volume] in Capillary blood by Glucometer 88 mg/dL 70- 140 [facility] ID Date Data Source [id number] 08/08/2020 07:41:45 PM [facility] Name Value Range Interpretation Code Description Data Shanda rce(s) Supporting Document(s) ABO and Rh group [Type] in Blood [facility] Blood group antibody screen [Presence] in Serum or Plasma [facility] Blood bank comment [facility] ID Date Data Source [id number] 08/08/2020 03:49:28 PM [facility] Name Value Range Interpretation Code Description Data Shanda rce(s) Supporting Document(s) Creatinine [Mass/volume] in Serum or Plasma 0.73 mg/dL 0.50-0.90 [facility] Glomerular filtration rate/1.73 sq M pre dicted among non-blacks [Volume Rate/Area] in Serum or Plasma by Creatinine-based formula (MDRD) >6 0 [facility] Glomerular filtration rate/1.73 sq M pre dicted among blacks [Volume Rate/Area] in Serum or Plasma by Creatinine-based formula (MDRD) >60 [facility] ID Date Data Source [id number] 08/08/2020 11:44:00 AM EST [facility] Name Value Range Interpretation Code Description Data Shanda rce(s) Supporting Document(s) SARS coronavirus 2 RdRp gene Test performed using the [employer] ID NOW COVID-19 assay. This test is only for use under the Food and Drug Administration's Emergency Use Authorization. Additional information is available on the [facility] FDA websites for health care providers and patients. [facility] This lab was ordered by [facility] and reported by [facility]. ID Date Data Source [id number] 08/08/2020 11:56:17 AM [facility] Name Value Range Interpretation Code Description Data Shanda rce(s) Supporting Document(s) SARS coronavirus 2 RdRp gene Negative [facility] Test performed using the [employer] ID NOW C OVID-19 assay. This test is only for use under the Food and Drug Administration's Emergency Use Authorization. 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 [facility] Patient has symptoms related to [facility] When did you start to experience these symptoms [Date and time] [Phen X] [facility] Patient was hospitalized because of this condition [facility] patient was admitted to ICU for [facility] Patient resides in a congregate care setting [facility] status [facility] ID Date Data Source [id number] 08/08/2020 11:23:33 AM [facility] Name Value Range Interpretation Code Description Data Shanda rce(s) Supporting Document(s) Progress Note [facility] UGADBp9fCeXPYsUn81/YJOniUXDzc8RyWZmnKEj9XNhcAFHfR1TrEES5xO8zOMR3TRtYMyXaLvSnIpXs [facility] [file] W09cN/OpsWRmgbAI374y9b9H+iBfEtHvLI9Ft438nw8iupk4RB2D4KekQMoZIc1x+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 [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] HEAD AUTOMATIC SAWYER/Yf4B6urwx8Z/RfU4etpGunTFwi0y2NIDjclMCY [file] ICAgICAgICAgICAgICAgICAgICAgICAgICAgICAgICAgICAgICAgICAgICAgICAgICAgICAgICAgICAg TTKiYEUeVRZpGPZyGWRdAVIgEPRzIWCsQH8VXJVxSD AgICAgICAgICAgICAgICAgICAgICAgICAgICAgICAgICAgICAgICAgICAgICAgICAgICAgICAgICAgIC VgEKOgKMCxFWPtUNKcXDJzNGRuSMFnKSVgLGUwZVKpAMVpHB2GQUPzSBKsMPRuFGKsSRKzGMJxLCOeMU AgICAgICAgICAgICAgICAgICAgICAgICAgICAgICAg THCcALWiBFLhDMJiGOBtITNmBSUiHLDpWJFrLSXyNICmMNUwUBKzVJSeWDZoNU9UIQHbXQFeUNRnRUQl ICAgICAgICAgICAgICAgICAgICAgICAgICAgICAgICAgICAgICAgICAgICAgICAgICAgICAgICAgICAg TBXrWADlZLCaZUMoZYAnESUlCZVjPJNxNDDzAM4ICS AgICAgICAgICAgICAgICAgICAgICAgICAgICAgICAgICAgICAgICAgICAgICAgICAgICAgICAgICAgIC EpWHRnHSNtOXSuOTMiUFEdCQLsBDNnIYJuXJGgZWOfQSGoYQAgSM1LKGYxDUJqTSXaETIuNDSyCRXeMI AgICAgICAgICAgICAgICAgICAgICAgICAgICAgICAg BISfZYVhPQBqAFTvMEOxGXYiIHSwMRMiCLBiFTBpQUZaLROzPPQwLEYpBABiXRMsYT5MFSCwFRDkSYEs ICAgICAgICAgICAgICAgICAgICAgICAgICAgICAgICAgICAgICAgICAgICAgICAgICAgICAgICAgICAg ICAgICAgICAgICAgICAgICAgICAgICAgICAgICAgIA 0KICAgICAgICAgICAgICAgICAgICAgICAgICAgICAgICAgICAgICAgICAgICAgICAgICAgICAgICAgIC DsYRTbAQFpZMKvVVRnQRPmDRUkRDZiXEXmYBJgTZSlKXEmQGToTJFfGE1KISKjXTMsRSPcRCOuRNMeFD AgICAgICAgICAgICAgICAgICAgICAgICAgICAgICAg SIPdOPDxBVJpNRTtNFUwCAJbULMbPFBxYVZoQXCsZKHhDVXzCOYaTISzSGMwUIXkXKItFS5PBZUnNBJl ICAgICAgICAgICAgICAgICAgICAgICAgICAgICAgICAgICAgICAgICAgICAgICAgICAgICAgICAgICAg ICAgICAgICAgICAgICAgICAgICAgICAgICAgICAgIC HjJR7UEK00jEOcy0X2BMDvEO4cjve/Vz7CYOnglyOreLEuEA6JMoQfHY0fhi2QQyPeKA4ccr0NWBxZCk DdJ1Z7eXMjTVLtWHXVEhOwO56yMKleJp82KFhcHMBxSnKiFYv0Eh9VEaKjS6rkNYWnCcJ7CXLiInHdLI wwEX6Rk2YoaHYmNIx+Qe6NRR3bq0JbOYjhPJTuPN4v wn0KLBnMNcYnC3JebuD4LOQaKZYkHo7LPUTdKEPahXWpLWEhNCPELgKmP2TzbY51ECOSJy3+DQplbmRv JekMScWaHLAqo3CuAMf8RO6EFZNaMSp9xZHmKEDwO0Tte1StMv20ZSQtPzjlZvrwabBHDRclppYhndsh Bh0gUFKyDd2aLz4xGQDrXKUbKbDuHERHPL0JSHFjBI OeqERjHPPyNULNYE3BYAubHWT7GXQdouLqxOKqPSzuVH2NIBCdeeQnPJknVWEZEJg+Vx1VYO1gs1AaEC giIOQtXC5png0KRViDZoYuD1H3jBVrD5C8QOtbHd6EXLLlQAAySUxbGIXNNIvzWC7ZAZ8ilbR5IH8VzR QvYALiQYRpuSOzALc7D77omYVzGOjaLO6VWPX+Luis+ Xb7COFCbAPBbGKCsYqFcQTFPXbLxP1UpU3UJz9CkN7QzMT51nSqguoFmHRyzZO9MQN0cFUQeXHVUZA6L mGVuuB1beaNrWFVoQTYQTuWsQ91jjQCqTXKvWGM8TTKnAl1ELZBeT5HewiZawVyesdGrWDIuQUKJYP9E XByupvEmeXCqwWtmUV54fJxjSH2GNm6QNqVrIE4wsw 0DqJOiVw6ZPJCbPn0PUCZsHLGuJRRhHWD4OFRlWlUeANmgQYElPFAcWZP3SHYzJRKpGO3NQvUuRSCoRU ppExHbNMIpLJMjwn4OZSCtMXYkWPp4UENzOHCcZWEnOBbkJVQhFMMgZXC2FXAeFDYuFR7LKoPfJBEyPW YdHSVfXDAjLPXhud2MUJNpMIXpMaI3JhZsYMKrZSFf HBbjOTVtRZHqVrU9MHTwVSUgKP1KTeTsEIYwWYV7ECTqTPFrSVKtca5IQLSnZXSlHnHaSEUcOKSwLRWc WOgzXWRmTNY6SPv0FBNbDLSuCT6YArDzEDXeQDJ9XCQwCERgESUtfu9IFNMpEETsTXo5VQRpNIBvEXLg DXvrZZOkZMT8AzDdJXYlRISqKW3LCxKaWAZmUHB5BP twYOFfGSGdvx7UZIJeAHTlZrk5YEQlYKSxINKnYNwoWMXmFMJ1KQz7ZCShHASjYK5UKoWnWFSoMAwmUN ZmJASiSNKlbn3PWFMpEOTqVxC6LTYhMOHsXHNfPHulNBOtOEX2KBohIQObPLYrJB1QRjJdVDJzVXbeCL PhGYDsWKGxjb0DJNAiRVLmPNNnWHRmMDGbVBBdOQv3 luPyuUKePIe1FI9NO7ZwlqHnZsYXZf5Cj167LTWdRMFdCr5HX0goQi7tHKBmLHICGi1PJSc0JuC3VLC1 ZWU8HiYpWUO2D6QaB3SsJxS2AHKuXtCkNZL+ISvrMWXlGRuhYVbkIbZeXJm9PtEvMDXyTubjWfAnWqBj TY4mZPDLOm4+KMludDLuqRwvURJIDoA2JKW9UAkcRULMRk1O ID Date Data Source [id number] 07/25/2020 07:33:42 AM [facility] Name Value Range Interpretation Code Description Data Shanda rce(s) Supporting Document(s) Progress Note [facility] WZWWVc8qIfJSFpSv44/SGNqqXVMmo1GcBArnFTc4GFxhZGZmR0ToBVJ6rR7tPGR8EBoGTaEgClJvQPT5 lbm [file] AgICAgICAgICAgICAgICAgICAgICAgICAgICAgICAgICAgICAgICAgICAgICAgICAgICAgICAgICANCi AgICAgICAgICAgICAgICAgICAgICAgICAgICAgICAg ICAgICAgICAgICAgICAgICAgICAgICAgICAgICAgICAgICAgICAgICAgICAgICAgICAgICAgICAgICAg ICAgICAgICANCiAgICAgICAgICAgICAgICAgICAgICAgICAgICAgICAgICAgICAgICAgICAgICAgICAg ICAgICAgICAgICAgICAgICAgICAgICAgICAgICAgIC AgICAgICAgICAgICAgICAgICANCiAgICAgICAgICAgICAgICAgICAgICAgICAgICAgICAgICAgICAgIC AgICAgICAgICAgICAgICAgICAgICAgICAgICAgICAgICAgICAgICAgICAgICAgICAgICAgICAgICAgIC ANCiAgICAgICAgICAgICAgICAgICAgICAgICAgICAg ICAgICAgICAgICAgICAgICAgICAgICAgICAgICAgICAgICAgICAgICAgICAgICAgICAgICAgICAgICAg ICAgICAgICAgICANCiAgICAgICAgICAgICAgICAgICAgICAgICAgICAgICAgICAgICAgICAgICAgICAg ICAgICAgICAgICAgICAgICAgICAgICAgICAgICAgIC AgICAgICAgICAgICAgICAgICAgICANCiAgICAgICAgICAgICAgICAgICAgICAgICAgICAgICAgICAgIC AgICAgICAgICAgICAgICAgICAgICAgICAgICAgICAgICAgICAgICAgICAgICAgICAgICAgICAgICAgIC AgICANCiAgICAgICAgICAgICAgICAgICAgICAgICAg ICAgICAgICAgICAgICAgICAgICAgICAgICAgICAgICAgICAgICAgICAgICAgICAgICAgICAgICAgICAg ICAgICAgICAgICAgICANCiAgICAgICAgICAgICAgICAgICAgICAgICAgICAgICAgICAgICAgICAgICAg ICAgICAgICAgICAgICAgICAgICAgICAgICAgICAgIC AgICAgICAgICAgICAgICAgICAgICAgICANCiAgICAgICAgICAgICAgICAgICAgICAgICAgICAgICAgIC AgICAgICAgICAgICAgICAgICAgICAgICAgICAgICAgICAgICAgICAgICAgICAgICAgICAgICAgICAgIC AgICAgICANCjw/iTDkR1vvrKMchoI4Q7wyEc7BDx5C US7dk5IlCJKhOZzgyzOcRmgTXnImOBIqJdpGUgk1IDbrTF8IfQMnJ5TwF9EoILrmEI7KJSJjVYXbfBXs MTQpCGOmUfI4HBLcLUblUC7AwCEzMYkdIMQuOCWvWsBqFZCuWP7OTMZuK216udHoQr3XFa7ARvMxGU5z ov8CPsEcPZEqRtdMPuj4SHnqJQ6SsWEquTCbFwYfXY HJKsVaN5svk5SsOxLhPAKRSWqbMJ5Uk7WzvOMzVNy+Bm4WIR7lk3RaUOgfNpNmHO4asi2KDYkBJaNqG5 HnnQxgFCMfh8ryVPGoOD9acUCkLES8CA5lm4JvDDPLjU2zGU2IAJE3YZCxIqtyBvIlGLRmVxwdEVNRHC fFRfUmV1Kmq3TcXmY1TTXmTlPcTThsLFOhKAgkBJ20 bIrgHU2UHZMeTAYvWF82XRGgCOVcPs6XBv6QJtWmQN7avg2ODcPgPLNsFvqUIfy7JUlzNM1YkYNwG1Zr oSUqo7aCMjOnA5BVNJUcHCCeVe9MEVCwKoMcIIVbORniTD1zVGNgFFGLuJphswE1XI2NVT0wdjUmMX2L AjNcUa7oTe7YUsUeU9VkU2MnSSBfAKKWLUfgTP5SWO anNS9fSP9Dr5WGbPIrdB5qqe6LCYMkBUAxPkhhcb3SOalnJ1Z7bKzdYLIlQcDjGTWWIPovOI7RWBYbLQ Q9OMIdNLMvBRHMEmJsE90kYA9ET9Kjw89bFpD1MKXkHmLzMUbhAY76iOpiwvFtcGKbcFqxRC4JBc4+DQ plbmRvYmoNCnhyZWYNCjAgMzUNCjAwMDAwMDAwMDAg IkG5WxZhPt3PLQAoSNRzCGWkIoKbGLCuMNPaOZenPIRdXQY3UeL2XJRgIIAhRG7AFqWwXFJsSlQqFtIl BYHyJMCium2YJLFeUAWlVHC5MhGzGBPvHVMvOZhsBNSsLAW6TdskFWWuKVUnBE6LViQcOKCiGVS8XCVo CWUgRDIltw8RTHKgPEPrOmC1OTMzTTMpMRRbJEqqCE FaHNJ0JVi2JYUgTKOcYZ4XNzVnMIJsCEk7JAYvSFLpWLEkev6TJORdOWOcAXHoUVQdBSYeFVJeHPdmTD WhDFU7WsSqISZkSMWmAY3OUaOaYCXhHPPfKvyeEEVyMDWqsy7WEYKyQQLjQKX8JWCuQMHhSTBeZWzaWJ HvRPJuDOH7UHTrPKOoEL5IRlPmOKUiULI3TVyaWHHr DEOfpt5YIBZzJRW6KaR1YdPxPAFwTXUyJCggXIXiUAXsPRg3RNLuZIIhGJ6KYwRbXLYtQNHmMXVfTKLx MIJavt0JYLEeGYH5LpLkCjCmUPJfRTNtLKcjXBAnNTQkLHMhSNCxIVJiSM2PPsUqZKJxXyF8PRDqAFIo OKXgno7HEMWyFEN5GZU8XYTjDAGyCFEdMCziXAHzKL MqQQYaYHEaDEUqFE2SLiYlICOyNuF6AxtuYICxAAAegz3UZHDzKFA6RnMnPzZuLBNiVJPkGEilZGYtWJ LeXQOuBNUcICAqXB7LZcLoNJEzAqP5XaUvEANvHPNbja5QBXHvULP2PrcpOVIqZOOwCSLoBBayATOpFZ G9HHO6EGPqIUJeCH6COxPrQZVzRwFrZQLhJWLeGGNj yt2MBOUtDGS7PQpeAtCqZNCfHSPpTJrgSZScGLQ4TGh3CJMbIFKlRN3UTuWaLZDjVqZvPCayFNDlUPTh qe9USXMaVEO2TwX0IpJvQLCgRHVaUIz0uxKtvHBdMXq6PZ8FZ2LoohWxEvFCDo6Aq332ZWH3UHTdLh7H H4qjJk0pPPExZNARFf4AFSz2GDKbScJlWNGqVUInM0 TrAdjdEZxoZ0XiEnQaZME4KTR+PRi5J5XzJXA9S5M8DyQmHyNeD7UfGGV6NnSfWKZ8ONb9BG9vAGEMIo 4+XXklvQXhaEsyBOEYJiS1DeN0SUnjYPIJDh0D ID Date Data Source [id number] 07/19/2020 01:22:03 PM [facility] CT LUMBAR SPINE WITH CONTRAST [id number] RESULTInterpreted by:Rich Degroot MD07/17/2020 1:[address] LUMBAR SPINE WITH CONTRAST [id number] MYELOGRAM WITH POST MYELOGRAM LUMBAR SPINE CT SCANAutomated dose lowering techniques and/or adjustment according to patient size were utilized for this exam" ORDERING CLINICAL INFORMATION: low back pain, status post lumbar reconstruction at L5- N9NACAYN CT MYELOGRAM PROCEDURE: Contiguous axial tomographic sections were obtained from T12-S1 after injection of intrathecal contrast. Two-dimensional sagittal and coronal images were reconstructed. Automated dose lowering techniques and/or adjustment according to patient size were utilized for this examPOST MYELOGRAM LUMBAR SPINE CT FINDINGS:There are 5 lumbar vertebral bodies.There is grade 1-2 anterolisthesis of L5 over S1 with the laminectomy and posterior fixation of spine. There is also bony fusion at this level.Mild retrolisthesis of for L4 over L5 is noted..The decreased disc height is noted at L5-S1..Axial:T12-L1: [No significant disc or bony disease. No significant central canal or neural foraminal narrowing.L1-L2: [No significant disc or bony disease. No significant central canal or neural foraminal narrowing.L2-L3: [No significant disc or bony disease. No significant central canal or neural foraminal narrowing.L3-L4: Mild narrowing of bilateral neural foramina. The central canal is preserved..L4-L5: Moderate to severe narrowing of bilateral neural foramina. There is a mild narrowing of central canal.L5-S1: Grade 1-2 anterolisthesis with laminectomy and posterior fixation of spine. The hardware is intact.. Evidence of for prior from may not be is noted. There is narrowing of neural foramina due to anterolisthesis and probable impingement of for bilateral L5 nerve roots along the bare disc.LUMBAR CT MYELOGRAM IMPRESSION:Narrowing of neural foramina at L4-5 and L5-S1 as described above.END OF IMPRESSION: This document has been electronically signed by Rich Degroot MD on 07/19/2020 1:19 PM Name Value Range Interpretation Code Description Data Shanda rce(s) Supporting Document(s) ID Date Data Source [id number] 07/17/2020 03:29:51 PM [facility] IR MYELOGRAMFINAL RESULTInterpreted by:Esau Degroot [facility]:: 49 years old Female status post lumbar reconstruction at L5-S1. Follow up MRI ORDERING CLINICAL INFORMATION: status post lumbar reconstruction at L5-S1. Follow up MRI EXAMINATION: LUMBAR MYELOGRAMTECHNIQUE: The risks, benefits and alternatives of the procedure were discussed in detail with the patient. Emphasis was placed on risks of bleeding, infection, nerve injury and post myelogram headache. A signed informed consent was obtained.A time was performed with the cooling tower technician in the room per protocol.The lower back was prepped and draped with sterile technique and the skin was infiltrated with 1% Lidocaine local anesthesia. Using real time fluoroscopic guidance, a 22 gauge spinal needle was placed into the thecal sac at the L3-L4 level. Approximately 10 cc of Omnipaque 300 contrast material was instilled into the thecal sac. The needle was then removed and the site was dressed with sterile technique. Spot fluoroscopic images were obtained. There were no complications during the procedure.FINDINGS: Spot fluoroscopic images of the lumbar spine show contrast material in the thecal sac. No evidence of myelographic block is noted.Radiation dose: 17.7 mCi Fluoroscopy Time: 0.5 minutesCONCLUSION:1. Successful fluoroscopically guided lumbar puncture and lumbar myelogram.2. Please refer to the CT lumbar spine post myelogram for complete assessment.This document has been electronically signed by Rich Degroot MD on 07/17/2020 3:27 PM Name Value Range Interpretation Code Description Data Shanda rce(s) Supporting Document(s) ID Date Data Source [id number] 07/17/2020 02:55:06 PM [facility] Name Value Range Interpretation Code Description Data Shanda rce(s) Supporting Document(s) Progress Note [facility] LTKJWn9zEuHFHuGx03/NRDfbGQOow8OrYBeuJEh6PKgoVCOrZ9PzHDB0cR6nWQQ0XApYQlBeGgAeLQIc lbm [file] ICAgICAgICAgICAgICAgICAgICAgICAgICAgICAgIC PcEEIpBUDqAJUyMK3INITzEDDnCQPqWZDlHQRlWFZpJTVpKGOxRFDcWBVrHFZcYIYjAVOtDPSnKVTnIY OpZZZaWXVxLQEtCNHfAUZuTNAiBUQsEOOqNBLlTSVdZQDdZCZnWVGsJSRfZCBaLBGcCDEyAF0TXPNiPG AgICAgICAgICAgICAgICAgICAgICAgICAgICAgICAg ICAgICAgICAgICAgICAgICAgICAgICAgICAgICAgICAgICAgICAgICAgICAgICAgICAgICAgICAgICAg GXLcKB4LRVMpIBAvTGRrGAZdJXRkLKUhGDWdVXNzFKKkJCJtKIJgAUJiVEEgUYTgPMJpYSAaVPQhJNKe ICAgICAgICAgICAgICAgICAgICAgICAgICAgICAgIC KdEJYkXCNjAAViDFJtVB9WYQOaGBCmESOdGFTqTWYnQWCeUTGfUTDxJEXwBXBmMIXtLJQiYLYqQRQfRV EkRVKlVEEdBWEtVKBaYEBkUHXlXRLqHBWrYWCyRGAiKNGeOBUiDQRsWCBxIXGfLRSmEXYwMCRoSQ1EBB AgICAgICAgICAgICAgICAgICAgICAgICAgICAgICAg ICAgICAgICAgICAgICAgICAgICAgICAgICAgICAgICAgICAgICAgICAgICAgICAgICAgICAgICAgICAg JWJpNLQsLU3ENFVfJLTtVPXhDOYmBKLeJZFkFUHqVZYcIYKgPCClPTXbHUSxDZDeGBJeGLMqNLVvCQWp ICAgICAgICAgICAgICAgICAgICAgICAgICAgICAgIC GxQSMbZXZsXOOvIRZkKFPwJY5RBZErCGLsLNEwVPByZKEiSIEhDFTiPECqOEAaCUZsNQTnRVImAXGfIE AgICAgICAgICAgICAgICAgICAgICAgICAgICAgICAgICAgICAgICAgICAgICAgICAgICAgICAgICAgIA 0KICAgICAgICAgICAgICAgICAgICAgICAgICAgICAg ICAgICAgICAgICAgICAgICAgICAgICAgICAgICAgICAgICAgICAgICAgICAgICAgICAgICAgICAgICAg NGByUFWzKNWlEG4DKWArIREzMNVrJYVqFIVvWGGzEISrKAYwMEWkCCUdLIDkUQNkCZCgSVMtGKUxWABu ICAgICAgICAgICAgICAgICAgICAgICAgICAgICAgIC TaUCEbEPDzYSIjBAXbXPBfCEZoDW1AYW62gNEjj4O9PXOzZX1jhis/Sl0XLVcaerDokTVxTN9PInWgKM 9mja3NKxUjQV3rax7DNItWJcStT7U5sTKcXRQzNYWYZnUkV54rWCogQp04BKtmCWLxBdEoAJr3Ov6FEr UbJ6xnXRNmOfT3XCYkCyEvGQsiDC4Yq8YmlTJdXZh+ Jr5CNJ3ph9EuQXltPDCkOX9hnm1BGGlQMyJfO2TleuV8NBB5QVGhLa8UGOTmSMIqaPPeQJEpXASVWlDb H5TfaY99TXIURb1+JXrfwlOcTipWGyV3GQYpn6NpINn2ON8ZNUJpVMl7iHCcPZQlA7Crv6CqJz30XSWn HcyuK7VuB3LoKPGXYGBoVWopHf1dORAjGO8hXU9pCA GtDXAtChF6QREKRE7ZUANyLRYlvKCtDWIeSAMSEW8UKRcdIBX7MAAzthEmlOGyUTrbDB1KZTBbhwCiPK QgMCBSDQo+Nq2NIS6uz6LpXDgiMvGaPE2clb2PZNzKFnKbD4Z2uYJoW9H8JKtjOb0WGZLsREOsUUJzXL MZKPxkGL6RYS4hfzC9VG9DkROoBDTuTIShpRQyDFh3 V90rbOCzOCesEG0PBRX+Luis+Cs9UKEAkKXZiMJEtIoKvCWVCZwJgY8CxF7AZl6WkM3YpPY07qEswsgNn UHrwTY8XTK5kTMNhKCTDYU2IqFJnpW2cvwQhLWUwVSNGXhNfU26dsDPtKTPuWCXmKCBtAq6LVOTqJ5Iw rfMprAbwapXmVBZaBSDFEY8OATqqhbCyaBLdlAprVZ 51cJhjHG8CCl0NGhJpDR9vsh6KsRSsZg7XRKEoFo6YGIVyJEIcLGFiOHA4SYXrQyGqGKjvJXVuUNRjFY E2BCLtHFHxVD9QQzSwMIOwNHH7ORFpYLOnVDYrti3GGOAoXVAaDgI7HfZlIPCiCGCvZAbsDOLiHAFcXC Y3EXWaANTsJE6SRhWuMEZgLAO0QWErGOTxFICmkd0U YIIcHHFnFGw4FTXrWTVcSXWsHEwgWDCgPVTxYLM1AYAtZRJmAA9QJaGcLNFfXPIgHESpVFLdSHKvqs4U DUYaBDWqIyB3ZVZlDHRnCZXjRTzePXMkOCE1HCPkYPHdLSEqKI3ENdCxWPXiRLSvUOWnETJiYCHyly2A RCXxVUEyKPMgQwPaMPAsTFPgTCvvOBMwZTO4ZDL5RN MpBZJcXC6UDuVgVBUhUIYdHzOcDEInOZWpbe4KSNTmWUJdIuJ1RGEuCVBmBXQoFVozXNEeRUX7NLryNM WbGITtIG0KJmQxELqcWOJBRlu8CMsqZ2k5JVEyFs0WT1Rjb5TfHQWiARCTMFkbUL7wylJaSYCwHl0KG8 kZDqwtKOsjEYPiQtEwRTEdTYPbQzRkVsShDnExS4Uf GIN9Gt7qSRZcT0FiYbA5IxBzYIDqLCR1VxUeB4NkDrPqSAD7KcN0GiBwYF2ZRn5XChO8JIU7bNUzHf4X ExcgKe4ZZICRD0WSAa== ID Date Data Source [id number] 07/17/2020 11:05:49 AM EST [facility] Name Value Range Interpretation Code Description Data Shanda rce(s) Supporting Document(s) Progress Note [facility] BBCWXg9rGkKLKrYg05/AQBgsITOtl8UzXGcoNCq5CUtzXMAkC4OnXGY4zE4uBSU8GIqTPpNiXcAjHVSn lbm [file] ID Date Data Source [id number] 07/17/2020 11:46:11 AM [facility] Name Value Range Interpretation Code Description Data Shanda rce(s) Supporting Document(s) Prothrombin time (PT) 12.2 s 12.5-14.9 L [facility] INR in Platelet poor plasma by Coagulation assay 0.90 [facility] Routine intensity oral anticoagulation I NR is typically 2.0-3.0. Target INR must be clinically individualized. ID Date Data Source [id number] 07/17/2020 11:55:04 AM [facility] Value Range Interpretation Code Description Data Shanda rce(s) Supporting Document(s) Bicarbonate [Moles/volume] in Serum 27 mmol/L 22-29 [facility] Chloride [Moles/volume] in Serum or Plasma 104 mmol/L 98-107 [facility] Creatinine [Mass/volume] in Serum or Plasma 0.77 mg/dL 0.50-0.90 [facility] Glucose [Mass/volume] in Serum or Plasma 78 mg/dL 70-140 [facility] Potassium [Moles/volume] in Serum or Plasma 4.0 mmol/L 3.4-5.1 [facility] Sodium [Moles/volume] in Serum or Plasma 139 mmol/L 136-145 [facility] Urea nitrogen [Mass/volume] in Serum or Plasma 14 mg/dL 6-20 [facility] Anion gap 3 in Serum or Plasma 8 mmol/L 8-15 [facility] Osmolality of Serum or Plasma by calculation 287 mosm/kg 275-300 [facility] Creatinine/Urea nitrogen [Mass Ratio] in Serum or Plasma 18 [facility] Calcium [Mass/volume] in Serum or Plasma 9.6 mg/dL 8.6-10.0 [facility] Glomerular filtration rate/1.73 sq M pre dicted among non-blacks [Volume Rate/Area] in Serum or Plasma by Creatinine-based formula (MDRD) >6 0 [facility] Glomerular filtration rate/1.73 sq M pre dicted among blacks [Volume Rate/Area] in Serum or Plasma by Creatinine-based formula (MDRD) >60 [facility] ID Date Data Source [id number] 07/17/2020 12:35:42 PM [facility] Name Value Range Interpretation Code Description Data Shanda rce(s) Supporting Document(s) Leukocytes [#/volume] in Blood by Automated count 3.6 10*3/uL 4-10 L [facility] Erythrocytes [#/volume] in Blood by Automated count 4.38 10*6/uL 4.1- 5.3 [facility] Hemoglobin [Mass/volume] in Blood 13.1 g/dL 11.5-15.5 [facility] Hematocrit [Volume Fraction] of Blood by Automated count 39.5 % 3 6-45 [facility] Erythrocyte mean corpuscular volume [Entitic volume] by Auto mated count 90.0 fL 80-96 [facility] Erythrocyte mean corpuscular hemoglobin [Entitic mass] by Automated count 29.9 pg 27-33 [facility] Erythrocyte mean corpuscular hemoglobin concentration [Mass/volume] by Automated count 33.3 g/dL [facility]0-[facility] width [Ratio] by Automated count 14.5 % 11.5-14.5 [facility] Platelets [#/volume] in Blood by Automated count 238 10*3/uL 150-400 [facility] Differential cell count method - Blood [facility] Neutrophils/100 leukocytes in Blood by Automated count 60 % [facility] Lymphocytes/100 leukocytes in Blood by Automated count 22 % [facility] Monocytes/100 leukocytes in Blood by Automated count 11 % [facility] Eosinophils/100 leukocytes in Blood by Automated count 1 % [facility] Basophils/100 leukocytes in Blood by Automated count 2 % [facility] Neutrophils [#/volume] in Blood by Automated count 2.15 10*3/uL 1.8-7 .0 [facility] Lymphocytes [#/volume] in Blood by Automated count 0.81 10*3/uL 1.2-4 .0 L [facility] Monocytes [#/volume] in Blood by Automated count 0.40 10*3/uL 0-0.8 [facility] Eosinophils [#/volume] in Blood by Automated count 0.03 10*3/uL 0-0.5 [facility] Basophils [#/volume] in Blood by Automated count 0.07 10*3/uL 0-0.2 [facility] Variant lymphocytes/100 leukocytes in Blood by Manual count 4 % [facility] Lymphocytes [#/volume] in Blood 0.13 10*3/uL 0 H [facility] Poikilocytosis [Presence] in Blood by Light microscopy [facility] ID Date Data Source [id number] 07/17/2020 10:54:40 AM [facility] Name Value Range Interpretation Code Description Data Shanda rce(s) Supporting Document(s) Progress Note [facility] PTJEQn3cBzPEOfIq65/KDQaiCBDih3ZdPNmeZRx7GSxaDSRgV2XvFMI1cD2bABP1WLlEKkArOzLjEQNw lbm [file] ICAgICAgICAgICAgICAgICAgICAgICAgICAgICAgICAgICAgICAgICAgICAgICAgICAgICAgICAgICAg XPJbYWIiGLAzUQGmBVWdTLUeOHMyGX3NUFKzEHGhFS AgICAgICAgICAgICAgICAgICAgICAgICAgICAgICAgICAgICAgICAgICAgICAgICAgICAgICAgICAgIC IaQLBqYVLoBJMvENRbEVTxGRJpFOJfSGJeSOAuWGCzXY9RKRIuZXEoFMFiJJZhKUQiHLSrLXZmUSZtGZ AgICAgICAgICAgICAgICAgICAgICAgICAgICAgICAg XLApZLSgGNTuRLGhCMUlADAbHYQeMMQqCPPdDKWoYHEfBOZgCOJxZOCsQP0CKETiOGZoGPJoWTGnGWTn ICAgICAgICAgICAgICAgICAgICAgICAgICAgICAgICAgICAgICAgICAgICAgICAgICAgICAgICAgICAg MCJeUSZnKKYvDLKeQDHzYMBrLWUwYVBeRF4YZKJpQL AgICAgICAgICAgICAgICAgICAgICAgICAgICAgICAgICAgICAgICAgICAgICAgICAgICAgICAgICAgIC JtKSBkLKRdNANqSJSxIHMwKQWqCBBeXBYmDHTrYWNjMQLuLI0RWUGmKJYwUUMmHCWbWCYtNBDrWYZoTQ AgICAgICAgICAgICAgICAgICAgICAgICAgICAgICAg RDFaFHNwCTOgGLEtUCXoYHEbULGlKRUqUSBrQMCxUWCcMVFkOJAwFKSrOUJhCB9VMTZxBQZjLOWeOQZn ICAgICAgICAgICAgICAgICAgICAgICAgICAgICAgICAgICAgICAgICAgICAgICAgICAgICAgICAgICAg YNOwETLhNCTdWGFiVWCiTDOnGVWjHIHwXTWfJE7KMC AgICAgICAgICAgICAgICAgICAgICAgICAgICAgICAgICAgICAgICAgICAgICAgICAgICAgICAgICAgIC NrOZMbWKAaXSQuCBPwPVJiRMMuKPQeVWZkMFZhLGNsJUWyFLVbEY5UIVWcSCTlFILwWQIjXJNuPFYnMW AgICAgICAgICAgICAgICAgICAgICAgICAgICAgICAg CSDgSRXlUNPeJTGgVVWuPTBkPNGtYBXxIIJjOUDvDESsRQXjGCIqYOZpIGAcMJRuZK9UHWFoKVMjGNAu ICAgICAgICAgICAgICAgICAgICAgICAgICAgICAgICAgICAgICAgICAgICAgICAgICAgICAgICAgICAg ICAgICAgICAgICAgICAgICAgICAgICAgICAgICAgIA 2GUU78fKWrl2Y2VKFoFF0agmh/Nv7LXNteonDtjEJpXH2KSbXaAQ6ljf2JOyOuNA3nax6KBDuCRsSxV9 U2pCDlNKLiOOLUPoVoI48mRCahXd57IHzqGKDnOyYxVIx5Qm4DZpXiH1tkWAAcOfF9XDQeObWdEMgsUO 2Xn3KrpGXjPMc+Wp9WFV8mp4JdQPqaEESdMH0jgk7H LKvQJqKeH9BpdnX6ZPD1IBIxVc7XKJCdLOIuaLOwHOEgHHZZVqYfU2TvuO45KIMPMz1+DQplbmRvYmoN DuI1CNHaj3YxCRn8UW7WOQBdKPz1jVQqBHHlV2Nme7XdGh59VEJvOvwlQA8vwFgsWNXYT7CcRSQciQzz Cd2aYIQvKC7gLC9rLTGoULXdOjBtNOVUTK6BLGZtFK CavFDvCZViEFYGLP0WBHgkQCP5QUZbltBxrJFiYRzfKR8PYXMlmtBtBSJaMFLTDPo+Oi7LLQ3ge3SwUD wyWtPxGH4enz6TYNuVBeRpD9L8jPHzD4S9HHunGb0KGTTiMRTbLIHdEDTYASalGB4ZHO7wfcT7LH7VyW SgFFHpLUSizCMoNJc2D51uhFIjKWdaVV8ZWUM+Luis+ Hw9NWRLxUBKcHAMyDuEuBBQZIbPpM9FlI3SRz3FmL5NpLX83jJcaunNeJHpaOS5HYI4qKHLwJAPVOG1Q zYBtjH5vkpCuTKByIVQMXeLqM59vyKTuWPQbJWBjUOWpWb6RBSXsB5YmouGnzTmlnfPgLBOhPENCQX2V YLiggrXxsDDpiLrqYV01tVjhAC4OAf3DVyPmIU2vbx 5TvOGuKj3GFTBoNs6APMPgGJYhPMAhQNT3WZQvJdHzQTjhXRVdPJUzBYQ2NLDcHNEpVC5QMcKlKXTbZU Y4AxGkQHNgVVCfmn3MQSPiZBPyRtK9IPFoCXBjRROeQLplCBCbRIIfPVA0OLGmSGBiCS5HJhNwOSDtHR C0SiGpRTUeURSlxn7JCRDcPZIqOTsfGHNnJDGnVANs HSscIIYgTCIoTut2ADKxSCYiIX0YHsSgSSYmQMB3XVHoHOJrOZGyfy6IZMBmUXYeLdD5VVVpVPMkSPVs WJvkLGOiGIQ7ZLSrUIJqXOReXI7NEbLbYRIfZIUhQqOiIPDdJWBmwl5RBAAhFVCsRCDjSJGrGXUiHRNk LGkpKVCvNCJ8GNB9ZMKbONNpTX8NOcPaWZGpEVHaNW UcYCGqBXVnyd1XKHAbMFEeKbRqMHRdEUDmKPYiRZhwUZXzTKZ0TKo5FMGnUWImWJ1AJhPlSSmpFQYGYw c6JOleY7p1BPZnXg9SP5Hiu8JeKHCkSTSVASexIU1ldnGeFNBwWo8FR4zAQhpjIFw1LiK8EQC7PyYzJX IcZtUwDlplQxO5KNT4FIUqLf8aABPoEWmdHoE0WIFc RPK4JEA1BuYwEvUdDZMjYCXhEIBaBpDvPL5INc9DNqA7MIH7yBDiWm8WTpjsQY2UJJNBA4OBTk== ID Date Data Source [id number] 07/14/2020 01:34:44 PM [facility] Name Value Range Interpretation Code Description Data Shanda rce(s) Supporting Document(s) Progress Note [facility] RRZSLw0bBkVFBzMm64/BFXbtZIJhh1GpTAjaZVr4JOknOBOsY2FqTYH2qE1xQYI7KReSPiOzYyTzPJH1 lbm [file] ICAgICAgICAgICAgICAgICAgICAgICAgICAgICAgICAgICAgICAgICAgICAgICAgICAgICAgICAgICAg ICAgICAgICAgICAgICAgDQogICAgICAgICAgICAgICAgICAgICAgICAgICAgICAgICAgICAgICAgICAg ICAgICAgICAgICAgICAgICAgICAgICAgICAgICAgIC AgICAgICAgICAgICAgICAgICAgICAgICAgDQogICAgICAgICAgICAgICAgICAgICAgICAgICAgICAgIC AgICAgICAgICAgICAgICAgICAgICAgICAgICAgICAgICAgICAgICAgICAgICAgICAgICAgICAgICAgIC AgICAgICAgDQogICAgICAgICAgICAgICAgICAgICAg ICAgICAgICAgICAgICAgICAgICAgICAgICAgICAgICAgICAgICAgICAgICAgICAgICAgICAgICAgICAg ICAgICAgICAgICAgICAgICAgDQogICAgICAgICAgICAgICAgICAgICAgICAgICAgICAgICAgICAgICAg ICAgICAgICAgICAgICAgICAgICAgICAgICAgICAgIC AgICAgICAgICAgICAgICAgICAgICAgICAgICAgDQogICAgICAgICAgICAgICAgICAgICAgICAgICAgIC AgICAgICAgICAgICAgICAgICAgICAgICAgICAgICAgICAgICAgICAgICAgICAgICAgICAgICAgICAgIC AgICAgICAgICAgDQogICAgICAgICAgICAgICAgICAg ICAgICAgICAgICAgICAgICAgICAgICAgICAgICAgICAgICAgICAgICAgICAgICAgICAgICAgICAgICAg ICAgICAgICAgICAgICAgICAgICAgDQogICAgICAgICAgICAgICAgICAgICAgICAgICAgICAgICAgICAg ICAgICAgICAgICAgICAgICAgICAgICAgICAgICAgIC AgICAgICAgICAgICAgICAgICAgICAgICAgICAgICAgDQogICAgICAgICAgICAgICAgICAgICAgICAgIC AgICAgICAgICAgICAgICAgICAgICAgICAgICAgICAgICAgICAgICAgICAgICAgICAgICAgICAgICAgIC AgICAgICAgICAgICAgDQogICAgICAgICAgICAgICAg ICAgICAgICAgICAgICAgICAgICAgICAgICAgICAgICAgICAgICAgICAgICAgICAgICAgICAgICAgICAg XNUjLRRkKQJpSDNzYBDrLUYmJDVuQEPyVNr3N0adUQUyGRWlHA5dVVh1Bh1+NCfVIsYlBXD3uyKzvZ4H DC5tj7JhLXvjUXJto5RrSZb8XL6FIPZsHOajSC0WQH erga2EZCHfGJVvpZZUt7byMpPyIHI0MIPvPlhdZJ8NLXEdE6qzqyXcQXLbUVTCPX0DBlZiX7AjtM36RH ENCj4+ZMsurpHnGdkYVeK2HELyu8EoXKy8QX2DLGLbEgdvq8OlHaByBWQURCzfQT8EKQF3QGHwEAKqHq 6LLKFtE631ccWmEH5HOx4ABqQaFN4flb0VTmSePJRk DrsTOve7QTaoNS1PbHWxLIpIwp8nzzKqjyRDr9DeyzDfvCWTgCykVAytW7NvDVopOx5yWIMaFJ9nQT2v SZGdKHDdCjLdXQJFIG9UBOHxHKJjeCXmUMNbWHQBID1KOQflMZL9YMInldDtaZJiHQgvVO6ZHWEcxhUq MTkgMCBSDQo+Xp1MBZ8or5LmPFzlGDIwPO1lrk5LIX sAGgBwA6L6vXHtF7R1VKuwIm7YTAKeVDMuIKadCRGRNBvpTY1WRJ5vksJ9CM3EhPIrWPDbRJFtqLNmRQ g6C60zlECeFCrfIW7XPNU+Luis+Ni4SAWOrJSLjYFQkMwVrAARJHwOhU0XmC4TZc0TyI2UuDS05yJmqaz WhEHpnNK9RJT8fKXUsPIYKLE3ToISrkR4paiNuNKJl EOGYSiKvX03zkVVbTOIhRPJ9BRTuUv0SDYPpB8HtqyTptMmgyqZfHGNuHNNAIO8PPFmuckPsePJkhCxo MJ49cHhtMR9ZIh8FAzKaTQ2oui2YrLSaEt3TNSOnFi4ZZLNiSGVhOPWbIKX2AGTiFcHgIOapRZHbLYEa JSU1ETFdOABpEK0KSqKeWYNpCWbxVVSpSXRzFURvyi 3YDYZqNYVoOYlaXHQyBGJdUSXhRDvvFXNoLMArYNQ1ZXBgNSQqFM3ELeZoRJQhJFFrKpPpEPTvIVShoh 3BJTTxGUDaBwXxDrWwUVIrILRbTFucGAEnGTZbRLk2DXSqVEQhPD5LNiPzYOWqZZUsSZWzJYJsYBGjme 7TASImNVYoKoE7WTLmBCYxFUFuONldCSFwOLD0WYI9 NPRuQTDkRC1BMvQxRDZuSHO7CaYeXMItOKOgze7JMXDfWAXkVKeoLXKvJQEvEAEeGNfmWJGeTHD8XgHw UWUdCOYhNH6NYbMtMNEeKZK8MhktAJSzXMVmyn7DXKYhBDBwSbi6LKHnWKAmMBOhNKqoNWZzXCY0TRI9 WSXjXEXjZX8HSdCfAHXuZKoiVtNpUWBsLQPvdj1PHB JjAENiOrV7LTHaPEWsEPQqKZcdHNLnVNE3ZOCwEPHnQNIpLH2KIfIyZSSuGBdmEEDkEVSiNCRiyd2KUB FkHPKgSKAaXGKtTXIvMMZsNGj2bpBpwJYiYPu2YD8JT2MyzjTlEsLDGp7Sb434AALlNHJrRt9JS4abYp 9zHYBkYAJPOj1PVTa7D1ItDKApL4XjNNBcTEXbSwT9 MZxpBdU3HpDuBOJbVlA+YCi2XMU6VbTuY5ZeYhVcABL2PTI3H2L7HALbBtUyIjVyWp5hDKVQWx1+DQpz qNCduSwjKHHMHvP6HOeyZHuaTPDREm4U ID Date Data Source [id number] 07/14/2020 01:34:00 PM EST [facility] Name Value Range Interpretation Code Description Data Shanda rce(s) Supporting Document(s) SARS-CoV-2 RNA 2019 nCoV Real-Time RT-PCR: NOT DETECTED [facility] This lab was ordered by [facility] and reported by [facility]. 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 [facility] Patient has symptoms related to condition [facility] When did you start to experience these symptoms [Date and time] [Phen X] [facility] Patient was hospitalized because of this condition [facility] patient was admitted to ICU for condition [facility] Patient resides in a congregate care setting [facility] status [facility] ID Date Data Source [id number] 06/24/2020 03:40:51 PM EST [facility] Name Value Range Interpretation Code Description Data Shanda rce(s) Supporting Document(s) Progress Note [facility] WUEKXc7vJzGEBuOv17/KJOtpNUJgu3WoOWssLPi0VErdLTLfH4ZgPZT8nV7cBXF7FMbWKkOzDqXpCfC1 lbm [file] JXyST/Hj+Cz3Au3U/clinical academic allergist+m9PP1PcvbacKe8u9x77xe4Ji3bePFJzJ7GNnktOLy5vwqRfdWzzJ9bWRcCn2 [file] /qVuqccwx+Z2NYhesUNzgAYlldQYc+GztyIMS5n NdBRA5scnxl0Kb9/XPzp2l+5B1vFeAvpxu9W4uXlnrOn/mkUIPgMvxMA5e4KGW4w1+ar4ejbb6aQtaEJ F9TV0JOKCe7sYoWBI2XqucDxRJCo3VpNvybCyjlQL9+QNyckUl78FNQHnv84JEd3A7G95cxmDMfgjfUR U3VmDL6GecWCleKr9LYyMA5LwjWS4d5v7/wUlNr53e BHje/p6SAjcaLPm9Lek7jsk7YPI8iKnwswJFEtZJ6sqWWt+jG8+pgJ6dKlYjN0sk+x6C1NYXqFTQCPRw 17NqnrvMKTX+fqcEdEy2faW/D3zVv2BliSDL4X4PWD6+Pk6OB7N6gkXeGeZx8/qOmGp2YUwPBViWaE/s +XFzvlW5e8hEd0R08dY+lC4zLpcroVwAhGyW448neX Ww+biICi1QU4K5QSln4selYpppMbMinzcOLZXcCTwR7FMB9l2bSzCQjCLHcR0K3hCO21T1T2gc9ihzmD TfKeXMA8gMoRN4vqNDarTJKzzwPbXVy1oBfZFfMbd1XqUXV9VCaVmKT+M5+7+baLw06x0rZ+dFd7+Imr u1bu3s2DQaSq14ojMntL1ImskxPx7xIN62BGc/vCO6 8+tu48DvpJ2fHjcEIy/pI3ODVXfFbmQJJUqLxTE+H0ljGVK6HqgHlqK2dMLzoFa6HC/Fnk/ZPpa9+ZDK Wnt3+cV1MDa5ADvHPUl9GoSRNcz93JhDI93odVu6oi/S1TQz9JukeVkKq3bShuQtX1j3nLC6L1zhrdhI B2pF23LfbgTbkWDdGz9Fn6aMFKiTUyQrCEMObrbGk+ 1kRMjzqw/MsaapWOgxlYxM9ODfWKHttEUUaCoKVvNPU3soIYUbO6OA1dWwdOlu0U/GvQyZM18sy2OOR9 XLgLzfV72n0Z/JIKQwIMwdHVSDRSZwnHCUVQCIWmdIJCHNKEaEAo+sQJBSQgMpILxDGEQUDOLIozJU+0 [file] 3tM0Qa/k2sTLfM1IJUT7Clth+progressive care unit registered nurse/0V6NoCFvlOWjDm [file] W3N1S0TEFzYuRkAPL5SIS2ShOpYQM+FT4tYXz+Rj4Zz5YdidN8xlEdEFx4BTK3UC4ATRBHJ9MZEl== ID Date Data Source URINE CULTURE 06/18/2020 12:00:00 AM EST [facility] (Critical access hospital) Name Value Range Interpretation Code Description Data Shanda rce(s) Supporting Document(s) URINE CULTURE eCW1 ([facility]) ID Date Data Source UA URINALYSIS 06/18/2020 12:00:00 AM EST [facility] (Critical access hospital) Name Value Range Interpretation Code Description Data Shanda rce(s) Supporting Document(s) UA URINALYSIS eCW1 ([facility]) ID Date Data Source [id number] 06/04/2020 02:00:00 PM EST [facility] Name Value Range Interpretation Code Description Data Shanda rce(s) Supporting Document(s) SARS coronavirus 2 RNA [facility] This lab was ordered by [facility] and reported by [facility]. ID Date Data Source [id number] 05/28/2020 04:32:37 PM EST [facility] MR LUMBAR SPINE WITH AND WITHOUT CONTRAS T [id number] RESULTInterpreted by:ODALIS BondsDC LUMBAR SPINEINDICATION: Status post lumbar reconstruction at L5-S1.TECHNIQUE: Multiplanar, multisequence MR images of the lumbar spine were obtained before and after the intravenous administration of 20/20 cc MultiHance.COMPARISON: MR lumbar spine 2018.FINDINGS: There is a 10 mm anterolisthesis of L5 with respect to S1 with associated chronic bilateral pars defects. The patient is status post fusion and laminectomy at this level. Lumbar spine alignment is otherwise maintained. There is advanced disc space narrowing at L5-S1. Space heights are otherwise preserved. Bone marrow signal is within normal limits.The conus medullaris is normal in morphology and signal intensity, terminating at the L1-L2 level. There is no abnormal enhancement.T12-L1 through L3-L4: No significant spinal canal or neural foraminal narrowing is present.L4- L5: There is minimal disc bulging without significant spinal canal narrowing. There is moderate proximal right neural foraminal narrowing, unchanged. The left neural foramen is patent.L5-S1: The patient is postlaminectomy at this level and the spinal canal is patent. There is moderate to severe left and moderate right foraminal narrowing, unchanged.IMPRESSION:Status post fusion and laminectomy at L5-S1 with 10 mm anterolisthesis at this level, unchanged.Lower lumbar spine degenerative changes, not significantly changed.This document has been electronically signed by Makenna Bojorquez MD on 05/28/2020 4:30 PM Name Value Range Interpretation Code Description Data Shanda rce(s) Supporting Document(s) ID Date Data Source [id number] 05/14/2020 05:19:48 PM [facility] XR SPINE LUMBAR 4-MORE VIEWS [id number] RESULT - FINALInterpreted by:Jovanni Owens MDAddendum BeginsSigned on TueMay 14, 2020 5:17 PM by Jovanni Owens MDTitle: Lumbar spine 4 viewsThe second sentence of the findings should read: "Bilateral TRANSPEDICULAR heide and screw fusion hardware." Addendum EndsLumbar spine 4 usingINDICATION: Status post lumbar reconstruction L5-S1. Spondylolysis and spinal listhesis.COMPARISON: 04/16/2019FINDINGS:There are 5 nonrib-bearing lumbar type vertebral bodies. Bilateral testicular heide and screw fusion hardware. Approximately 15 mm grade 2 anterolisthesis of L5 on S1 is unchanged from prior and appears unchanged on neutral, flexion, and extension views. No evidence of hardware failure.Vertebral body heights are maintained. Moderate to severe L5-S1 disc space narrowing. Calcifications are seen within the abdominal aorta.IMPRESSION:1. No significant change from prior.2. Status post L5-S1 posterior instrumented fusion.3. Grade 2 anterolisthesis of L5 on S1.This document has been electronically signed by Jovanni Owens MD on 05/14/2020 4:54 PM Name Value Range Interpretation Code Description Data Shanda rce(s) Supporting Document(s) ID Date Data Source [id number] 05/12/2020 05:57:38 PM [facility] Name Value Range Interpretation Code Description Data [facility] rce(s) Supporting Document(s) Progress Note [facility] [id number]/MXUlnCIQsw2KuKIkzRFe3VOoaXLQxI1EdXHB8pW2hWDS5KJlCErVeOlAeMHO2 lbm [file] AgICAgICAgICAgICAgICAgICAgICAgICAgICAgICAgICAgICAgICAgICAgICAgICAgICAgICAgICAgIC LdQHOaVAJoESOoUJMkDDIxUQJuHUHwSK9WZXUkGKWqTHPhFQZeOOZmZUQzOYEcBTCjXHUgXGZoSPVvYQ AgICAgICAgICAgICAgICAgICAgICAgICAgICAgICAg XWAmQXZmBJDmOMSaFOCeREVaSZHoQOZiKUAsSZIiGYPrYB6BCQTcVELwCUCgLWBqDJEjHXNaYKYfZUZt ICAgICAgICAgICAgICAgICAgICAgICAgICAgICAgICAgICAgICAgICAgICAgICAgICAgICAgICAgICAg CULhGIFtZKCuIYPmWYVvKJ1QSSDkOFApSMSyROXmCQ AgICAgICAgICAgICAgICAgICAgICAgICAgICAgICAgICAgICAgICAgICAgICAgICAgICAgICAgICAgIC UrDTNuQZAmVTPcMBXiMWEqIPKpJJSpNAAsEJ0TINLeXSEaSVCaKRUdFHOsWDHwKBVvTEGlCXGvZBItYC AgICAgICAgICAgICAgICAgICAgICAgICAgICAgICAg ULOrGXQjAVApSRJiREMrXBPfZPMlGQObLOIoSBIcJNNfZNXwDN8FMSDmOOVmYGHpDHKsFMVpROYxVZXm ICAgICAgICAgICAgICAgICAgICAgICAgICAgICAgICAgICAgICAgICAgICAgICAgICAgICAgICAgICAg KKCvZKDdFSFlTQUrZBOdPDSaVU4EPGJyHGJcCBPlXA AgICAgICAgICAgICAgICAgICAgICAgICAgICAgICAgICAgICAgICAgICAgICAgICAgICAgICAgICAgIC QcBIDjKSOeUNSvHHBgWRAbGVLvDKFwGXIiTUGnZQ5RKLYgDBAgRRWoNLUnNASbAUXvIRPdISQyPIYrWH AgICAgICAgICAgICAgICAgICAgICAgICAgICAgICAg JTEtWKQeEJFiVRUfBLUlOINuLPIlDHUuYZCwSWCtIGYmQGUfMQZmVE8YBXVeAOWbDXCeDCMaRTFfSRAw ICAgICAgICAgICAgICAgICAgICAgICAgICAgICAgICAgICAgICAgICAgICAgICAgICAgICAgICAgICAg JUZlGBYxZTFaGCPaYTNuLLQcXEYdYI2WJSIqZYByMJ AgICAgICAgICAgICAgICAgICAgICAgICAgICAgICAgICAgICAgICAgICAgICAgICAgICAgICAgICAgIC JeAVKtOTMxKKTwDDCvITKaUIIePIWfNPEmROHwKXFiHW1XUK35wXAco9B3NJFdTA6alee/Ca8WKAexwe XdaTTxKB3MEfTnQX3urc2QZnLsHG2sub6LKTxPIzTl M6H3zALmTRBiCRXDOePoW08iVBqxVv46REetXKTcSvElBLg5Qg7UQhNoQ9vrJAXhTiN6GMPcXlD2TVBv GaUdEZnnQK1Xn1GbbYWrHOz+Zc9RRQ7qs3HwRXlrGsJyEL8sfw3BRTbTVzJuE5UfwpT0FGBpFGUhRk5O PWNsYPAmvFGhZhTlNHIEMaEuK6LtrC54LQYJRv8+DQ rvxgEoFwyWHmFiIIWub0LxOLy7WL7LRHTfVYa0fBMqUEClB7Ahc8LeKc80EBZeFkamETnfRBMMKZA3cc fuDZJtZRMlNVKlUu4qUGMnZWH1WaEuTUFAPN5OQSMkPBYqaKIyYASwGJPCVI1UZDynPNR9QSPyfuBheR JrSMuqKD3PNKEdzeUxLfDlXPJXJNn+Cu8KFB0zg1Zp NYhfKLKrCZ5kto2QBXeZRnMbD0V9uKIlL1N9PAqgJp9UBHBbUCBkMcZwUODMRIfxEZ9LRC5qgpF0WH0Q fZJhTPEbZLWynNShXZc0F52tlENvVDnaIM5UXMX+Luis+Ik6UKUBbTOHoVDApMkLfTBFHFwEzO0NtZ3YF u9MmY6YwMF68fAxemwSpATaxHE0HVD1aVSSfQDFCWD 9KaCIzkZ2uqjCiMiZbTRIHXdKbF03tnZNkHZWkVAMfYMTbCj0JJJZvC2PvufImnTvmnvVrFGMwAFYHZJ 6MHXmjeyMvzNWjxItiMZ05pVffWN9MZc2KDiSrFJ1slr0QkWCaId0PQFMdFO5UTOIgEGRzARYfHUF1PK WbQiRdZQveRFYkVZNsZFF8JCErNPSuFX7RHlHnBTZk VlEmWcYjNQZhPTZyyt3NJVPyTWH1WGSqKHBtPZJdZEYqLAzmFDKyBDEyAVR3IXOeQROcTT0MCcBwAXOv DJKdGzZdTRXtXORyyb8AKRWaOUSiVTEuWYTyKZYvWEPrKGzzARYdGVN5Chm2JSSvSZKoZN7EKxUnEEYk CXn0PGQhNBBbJSMler7YYNXpGRIoKAq1UdFaHZRxTI BkEGuwYIYnQLI3OSM0IMUfVWHlAW8PIfGlXDUwFIqaZvdtHSIdDCQqpu4OKNOaMDRbELW6FCUmROMvGS WzERnsRLXfKEMeULBzULHrZEUpSI2QGkCwPKWsCNF2DMsfSUJcBNYade2RQGVhARS1BAz6WHWoHEMuTD BtJIshPTUyNEMcAaGwNWOjSLSjVS1GWqHgXBEqMIV1 YddqTUPxQLHnya4YJAPkOAF3XtA4WVIoIRXyALHzJIonABLoECQvRYc8KPEuFSBtDO9BVxRcOHSsVTi2 LNErKPNtWCOhmz7LTVQoYLS2BTOuLiGeJWAoNTLwCYacEEZyBVGgNaV9JHXgQXNkHP1EPlTsGCPrZtN4 BTxsXWYoKTXzhm9SQSToCEF5IJstSWSySINfRVUjLC fqZHKiYKXdJqn7QZLbJKQtYZ8EYyZzZPVkWfJ2PrCqGKDwNDLnch3IJELxKHX8ZeRwTZKbOTDkWANyHL ivIAPzTBUhBCt1XAJiDBVnYM8ZRbJdGVBeQcHsSbJwRZPtWCGeke6BBAEgUVQ2OiA2LKLpOYFwZLZaUR bnDGZuOEOwRazsESXbYLKwFL3KEpGgTVRmLtDoWfRv JRXeTMEsek2RNXUkKET5YSQqMNZaSJMpMKCpFDuuDYJiTRU5XVKrHAIeYTYuIF1TZlGrRStrJVBPUjf1 BQotN3e4ZHTqVI7JZ5Xkb6UfPhGpNXPMANbyYC3xbfAhKSNiLo0GP7eDVbakBcHcHRSgKMD5GlYjGWKv YTcrSZadWMK5MZj4KFF1CZ8cPPSnVqPyP3XkMCxrEd T9QZAdMGBqWWXdVfieZoJvLTv7FkOjTS4ZRn6BNjN7IUB2zMXvOn9LKqP3GZDQEyLyAA5STRg= Procedure Social History Code Duration Value Status Description Data Source(s ) Alcohol intake 05/27/2021 12:00:00 AM EST Current drinker of al cohol (finding) completed Current drinker of alcohol (finding) Health system Smoking 05/19/2021 12:00:00 AM EST Former Smoker completed Former Smoker eCW1 ([facility]) Smoking 05/19/2021 12:00:00 AM EST Former Smoker completed Former Smoker eCW1 ([facility]) Smoking 05/19/2021 12:00:00 AM EST Former Smoker completed Former Smoker eCW1 ([facility]) Smoking 04/12/2021 12:00:00 AM EDT Former Smoker completed Former Smoker eCW1 ([facility]) Smoking 04/12/2021 12:00:00 AM EDT Former Smoker completed Former Smoker eCW1 ([facility]) Alcohol intake 01/19/2021 12:00:00 AM EDT Current drinker of al cohol (finding) completed Current drinker of alcohol (finding) Health system Smoking 12/16/2020 12:00:00 AM EDT Former Smoker completed Former Smoker eCW1 ([facility]) Smoking 12/16/2020 12:00:00 AM EDT Former Smoker completed Former Smoker eCW1 ([facility]) Smoking 12/16/2020 12:00:00 AM EDT Former Smoker completed Former Smoker eCW1 ([facility]) Smoking 12/16/2020 12:00:00 AM EDT Former Smoker completed Former Smoker eCW1 ([facility]) Smoking 12/16/2020 12:00:00 AM EDT Former Smoker completed Former Smoker eCW1 ([facility]) Alcohol intake 12/14/2020 12:00:00 AM EDT Current drinker of al cohol (finding) completed Current drinker of alcohol (finding) Health system Smoking 11/13/2020 12:00:00 AM EDT Former Smoker completed Former Smoker eCW1 ([facility]) Alcohol intake 11/01/2020 12:00:00 AM EDT Current drinker of al cohol (finding) completed Current drinker of alcohol (finding) Health system Alcohol intake 09/01/2020 12:00:00 AM EST Current drinker of al cohol (finding) completed Current drinker of alcohol (finding) Health system Alcohol intake 08/16/2020 12:00:00 AM EST Current drinker of al cohol (finding) completed Current drinker of alcohol (finding) Health system Alcohol intake 08/13/2020 12:00:00 AM EST Current drinker of al cohol (finding) completed Current drinker of alcohol (finding) Health system Smoking 08/07/2020 12:00:00 AM EST Patient is a former smoker completed Patient is a former smoker MEDENT ([facility]) Smoking 08/05/2020 12:00:00 AM EST Former Smoker completed Former Smoker eCW1 ([facility]) Smoking 08/05/2020 12:00:00 AM EST Former Smoker completed Former Smoker eCW1 ([facility]) Smoking 08/05/2020 12:00:00 AM EST Former Smoker completed Former Smoker eCW1 ([facility]) Smoking 08/05/2020 12:00:00 AM EST Former Smoker completed Former Smoker eCW1 ([facility]) Smoking 06/18/2020 12:00:00 AM EST Former Smoker completed Former Smoker eCW1 ([facility]) Alcohol intake 06/06/2020 12:00:00 AM EST Current drinker of al cohol (finding) completed Current drinker of alcohol (finding) Health system Smoking 05/16/2020 12:00:00 AM EST Former Smoker completed Former Smoker eCW1 ([facility]) Smoking 05/16/2020 12:00:00 AM EST Former Smoker completed Former Smoker eCW1 ([facility]) Alcohol intake 05/12/2020 12:00:00 AM EST Current drinker of al cohol (finding) completed Current drinker of alcohol (finding) Health system Smoking 04/17/2020 12:00:00 AM EDT Former Smoker completed Former Smoker eCW1 ([facility]) Smoking 04/17/2020 12:00:00 AM EDT Former Smoker completed Former Smoker eCW1 ([facility]) Smoking 04/17/2020 12:00:00 AM EDT Former Smoker completed Former Smoker eCW1 ([facility]) Vital Signs ID Date Data Source UNK Name Value Range Interpretation Code Description Data Source(s) Body weight 238.2 [lb_av] 238.2 [lb_av] eCW1 ([facility]) Body weight 108.05 kg 108.05 kg [facility] Body height 61.5 [in_i] 61.5 [in_i] W1 ([facility]) Body mass index (BMI) [Ratio] 44.27 kg/m2 44.27 kg/m2 W1 ([facility]) Systolic blood pressure 128 mm[Hg] 128 mm[Hg] e CW1 ([facility]) Diastolic blood pressure 82 mm[Hg] 82 mm[Hg] eCW1 ([facility]) Body weight 237.2 [lb_av] 237.2 [lb_av] eCW1 ([facility]) Body weight 107.59 kg 107.59 kg eCW1 [facility] Body height 61.5 [in_i] 61.5 [in_i] eCW1 ([facility]) Body mass index (BMI) [Ratio] 44.09 kg/m2 44.09 kg/m2 eCW1 ([facility]) Heart rate 102 /min 102 /min eCW1 ([facility]) Respiratory rate 18 /min 18 /min eCW1 ([facility]) Body temperature 97.5 [degF] 97.5 [degF] eCW1 ( [facility]) Systolic blood pressure 132 mm[Hg] 132 mm[Hg] e CW1 ([facility]) Diastolic blood pressure 80 mm[Hg] 80 mm[Hg] eCW1 ([facility]) Systolic blood pressure 132 mm[Hg] 132 mm[Hg] M EDENT ([facility], ) Diastolic blood pressure 88 mm[Hg] 88 mm[Hg] MEDENT ([facility], ) Body height 60 [in_i] 60 [in_i] MEDENT ([facility], ) 5'0" Body weight 223.00 [lb_av] 223.00 [lb_av] MEDEN T ([facility], ) Body mass index (BMI) [Ratio] 43.5 kg/m2 43.5 k g/m2 [facility] [place] body weight 100 [lb_av] 100 [lb_av] MEDEN T ([facility], ) Body weight 101.153 kg 101.153 kg [facility] ([facility], ) Body surface area Derived from formula 1.95 m2 1.95 m2 [facility] Body weight 217.8 [lb_av] 217.8 [lb_av] eCW1 ([facility]) Body height 61.5 [in_i] 61.5 [in_i] eCW1 ([facility]) Body mass index (BMI) [Ratio] 40.48 kg/m2 40.48 kg/m2 eCW1 ([facility]) Heart rate 94 /min 94 /min eCW1 ([facility]) Respiratory rate 20 /min 20 /min eCW1 ([facility]) Body temperature 97.5 [degF] 97.5 [degF] eCW1 ( [facility]) Systolic blood pressure 130 mm[Hg] 130 mm[Hg] e CW1 ([facility]) Diastolic blood pressure 90 mm[Hg] 90 mm[Hg] eCW1 ([facility]) Systolic blood pressure 126 mm[Hg] 126 mm[Hg] e CW1 ([facility]) Body weight 220 [lb_av] 220 [lb_av] eCW1 ([facility]) Body height 61.5 [in_i] 61.5 [in_i] eCW1 ([facility]) Body mass index (BMI) [Ratio] 40.89 kg/m2 40.89 kg/m2 eCW1 ([facility]) Diastolic blood pressure 78 mm[Hg] 78 mm[Hg] eCW1 ([facility]) Body weight 99.79 kg 99.79 kg eCW1 ([facility] Body height 60 [in_i] 60 [in_i] MEDENT ([facility] 5'0" Body mass index (BMI) [Ratio] 41.4 kg/m2 41.4 k g/m2 MEDENT ([facility]) Heart rate 75 /min 75 /min MEDENT ([facility] Body weight 212.00 [lb_av] 212.00 [lb_av] MEDEN T ([facility]) Body weight 216 [lb_av] 216 [lb_av] eCW1 ([facility]) Body height 61.5 [in_i] 61.5 [in_i] eCW1 ([facility]) Body mass index (BMI) [Ratio] 40.15 kg/m2 40.15 kg/m2 eCW1 ([facility]) Heart rate 86 /min 86 /min eCW1 ([facility]) Respiratory rate 18 /min 18 /min eCW1 ([facility]) Body temperature 96.3 [degF] 96.3 [degF] eCW1 ( [facility]) Systolic blood pressure 122 mm[Hg] 122 mm[Hg] e CW1 ([facility]) Diastolic blood pressure 84 mm[Hg] 84 mm[Hg] eCW1 ([facility]) Body height 60 [in_i] 60 [in_i] [facility] ([facility], ) 5'0" [place] body weight 100 [lb_av] 100 [lb_av] MEDEN T ([facility], ) Body weight 98.942 kg 98.942 kg [facility] ([facility]) Body surface area Derived from formula 1.94 m2 1.94 m2 [facility] ([facility]) Body weight 218.12 [lb_av] 218.12 [lb_av] MEDEN T ([facility]) Body mass index (BMI) [Ratio] 42.6 kg/m2 42.6 k g/m2 [facility] ([facility]) Systolic blood pressure 126 mm[Hg] 126 mm[facility]Hg] [facility] Diastolic blood pressure 72 mm[Hg] 72 mm[Hg] [facility] ([facility]) Heart rate 108 /min 108 /min [facility] ([facility]) Oxygen saturation in Arterial blood by Pulse oximetry 95 % 95 % [facility] ([facility]) Body temperature 96.5 [degF] 96.5 [degF] [facility] ([facility]) Body weight 215 [lb_av] 215 [lb_av] eCW1 ([facility]) Body weight 97.52 kg 97.52 kg eCW1 ([facility] Body height 61.5 [in_i] 61.5 [in_i] eCW1 ([facility]) Body mass index (BMI) [Ratio] 39.96 kg/m2 39.96 kg/m2 eCW1 ([facility]) Systolic blood pressure 144 mm[Hg] 144 mm[Hg] e CW1 ([facility]) Diastolic blood pressure 98 mm[Hg] 98 mm[Hg] eCW1 ([facility]) Body height 61.5 [in_i] 61.5 [in_i] eCW1 ([facility]) Body weight 216.0 [lb_av] 216.0 [lb_av] eCW1 ([facility]) Heart rate 88 /min 88 /min eCW1 ([facility]) Respiratory rate 18 /min 18 /min eCW1 ([facility]) Body mass index (BMI) [Ratio] 40.15 kg/m2 40.15 kg/m2 eCW1 ([facility]) Body temperature 98.1 [degF] 98.1 [degF] eCW1 ( [facility]) Systolic blood pressure 128 mm[Hg] 128 mm[Hg] e CW1 ([facility]) Diastolic blood pressure 78 mm[Hg] 78 mm[Hg] eCW1 ([facility]) Heart rate 88 /min 88 /min eCW1 ([facility]) Body weight 216.0 [lb_av] 216.0 [lb_av] eCW1 ([facility]) Body height 61.5 [in_i] 61.5 [in_i] eCW1 ([facility]) Body mass index (BMI) [Ratio] 40.15 kg/m2 40.15 kg/m2 eCW1 ([facility]) Respiratory rate 18 /min 18 /min eCW1 ([facility]) Body temperature 98.1 [degF] 98.1 [degF] eCW1 ( [facility]) Systolic blood pressure 128 mm[Hg] 128 mm[Hg] e CW1 ([facility]) Diastolic blood pressure 78 mm[Hg] 78 mm[Hg] eCW1 ([facility]) ID Date Data Source [id number] 12/14/2020 05:58:40 PM [facility] Name Value Range Interpretation Code Description Data Source(s) WEIGHT RECORDED 219.[address] [facility] Body height Measured 60.4 in 60.4 in [facility] ID Date Data Source [id number] 11/01/2020 07:53:07 [facility] Name Value Range Interpretation Code Description Data Source(s) WEIGHT RECORDED [address] [facility] Body height Measured 60.25 in 60.25 in [facility] ID Date Data Source [id number] 09/01/2020 03:21:32 PM [facility] Value Range Interpretation Code Description Data Source(s) WEIGHT RECORDED [address] lb [address] [facility] Body height Measured 60.25 in 60.25 in [facility] ID Date Data Source [id number] 09/01/2020 03:17:14 PM [facility] Name Value Range Interpretation Code Description Data Source(s) WEIGHT RECORDED [address] lb [address] [facility] Body height Measured 60.24 in 60.24 in [facility] ID Date Data Source [id number] 08/08/2020 07:41:50 PM [facility] Value Range Interpretation Code Description Data Source(s) WEIGHT RECORDED 214.[address] [facility] Body height Measured 60.24 in 60.24 in [facility] ID Date Data Source [id number] 07/17/2020 03:29:51 PM [facility] Name Value Range Interpretation Code Description Data Source(s) WEIGHT RECORDED [address] lb [address] [facility] Body height Measured 60 in 60 in [facility] PREFERRED NAME Annetta Littlejohn [facility] PREFERRED NAME Annetta Kailashaliya Littlejohn [facility] ID Date Data Source [id number] 07/19/2020 01:22:03 PM [facility] Name Value Range Interpretation Code Description Data Source(s) PREFERRED NAME Annetta Kaylacamryn Littlejohn [facility] ID Date Data Source [id number] 07/15/2020 03:14:01 AM [facility] Name Value Range Interpretation Code Description Data Source(s) PREFERRED NAME Annetta Littlejohn [facility] ID Date Data Source [id number] 06/24/2020 03:40:51 PM [facility] Name Value Range Interpretation Code Description Data Source(s) [facility] Data Source [id number] 05/28/2020 04:32:37 PM [facility] Name Value Range Interpretation Code Description Data Source(s) PREFERRED NAME Annetta Bond Annetta [facility] Patient Treatment Plan of Care Planned Activity Planned Date Details Description Data Source (s) cetirizine hydrochloride 10 MG Oral Tablet 04/23/2021 12:00:00 AM E DT eCW1 ([facility]) cetirizine hydrochloride 10 MG Oral Tablet 04/23/2021 12:00:00 AM E DT eCW1 ([facility]) gabapentin 300 MG Oral Capsule 03/27/2021 12:00:00 AM [facility] atorvastatin 40 MG Oral Tablet 09/09/2020 12:00:00 AM [facility] gabapentin 300 MG Oral Capsule 09/01/2020 12:00:00 AM [facility] methylPREDNISolone 4 MG Oral Tablet Therapy Pack (MEDR OL (BENITO)) 09/01/2020 12:00:00 AM [facility] gabapentin 300 MG Oral Capsule 08/25/2020 12:00:00 AM [facility] tramadol hydrochloride 50 MG Oral Tablet 08/25/2020 12:00:00 AM [facility] Acetaminophen 325 MG / Oxycodone Hydrochloride 10 MG O ral Tablet 08/18/2020 12:00:00 AM [facility] methylPREDNISolone 4 MG Oral Tablet Therapy Pack (MEDR OL ([facility]O)) 08/18/2020 12:00:00 AM [facility] Docusate Sodium 100 MG Oral Capsule 08/14/2020 12:00:00 AM [facility] Acetaminophen 325 MG / Oxycodone Hydrochloride 5 MG Or al Tablet 08/14/2020 12:00:00 AM [facility] dextrose 50 % IV solution 25 mL 08/12/2020 07:55:35 PM [facility] Glucagon 1 MG Injection 08/12/2020 07:55:35 PM [facility] Glucose 0.417 MG/MG Oral Gel 08/12/2020 07:55:35 PM [facility] ondansetron (ZOFRAN) injection 4 mg 08/12/2020 07:55:35 PM [facility] Bisacodyl 10 MG Rectal Suppository 08/12/2020 07:55:35 PM [facility] senna tablet 2 tablet 08/12/2020 07:55:35 PM [facility] sodium chloride (preservative free) 0.9 % flush 3 mL 021 10:48:39 AM [facility] Multivitamin Women Oral Tablet 08/06/2020 12:00:00 AM [facility] 24 HR Oxybutynin chloride 10 MG Extended Release Oral Tablet 06/18/2020 12:00:00 AM [facility] eCW1 ([facility]) 24 HR Oxybutynin chloride 10 MG Extended Release Oral Tablet 06/18/2020 12:00:00 AM [facility] eCW1 ([facility]) Erythromycin 0.005 MG/MG Ophthalmic Ointment 12/21/2019 12:00:00 AM [facility] Diclofenac Sodium 0.01 MG/MG Topical Gel 07/24/2019 12:00:00 AM [facility] atorvastatin 40 MG Oral Tablet 10/23/2018 12:00:00 AM [facility] Multiple Vitamin (MULTIVITAMIN ADULT PO) [facility] Omeprazole 40 MG Delayed Release Oral Capsule [facility]
[2021-06-05] MEDS ORDERED: propofoL 200 MG/20 ML VIAL As Ordered ONE (08:03)
[2021-06-05] MEDS ORDERED: LIDOCAINE 2% 100MG/5ML SDV (FOR ANES.) As Ordered ONE (08:03)
[2021-06-05] MEDS ORDERED: fentaNYL 100 MCG/2 ML INJECTION (J3010) As Ordered ONE (08:04)
--- NOTE | 2021-06-05 08:31 | ROOR ---
Patient Name: Annetta Bond Procedure Date: 06/05/2021 8:13 AM Date of : 1970 Age: 50 Room: [facility] Gender: Female Note Status: Finalized Procedure: Upper GI endoscopy Indications: Epigastric abdominal pain, Abdominal pain in the right upper quadrant, Heartburn Providers: Cedric Mckay MD Referring MD: Asad Coats MD Requesting Provider: Medicines: Monitored Anesthesia Care Complications: No immediate complications. Procedure: Pre-Anesthesia Assessment: - The heart rate, respiratory rate, oxygen saturations, blood pressure, adequacy of pulmonary ventilation, and response to care were monitored throughout the procedure. The Endoscope was introduced through the mouth, and advanced to the second part of duodenum. The upper GI endoscopy was accomplished without difficulty. The patient tolerated the procedure well. Findings: Mild gastritis, Biopsies were taken with a cold forceps for histology. The exam was otherwise without abnormality. (large volume/compliant stomach) Biopsies were taken with a cold forceps in the gastric antrum for histology. Impression: - Mild gastritis. Biopsied - The examination was otherwise normal. Recommendation: - Follow an antireflux regimen. - Continue present medications. - Eat smaller, more frequent meals throughout the day. - Low fat diet. - Liquid/soft foods are tolerated better than solid foods. - Low fiber/well cooked vegetables are tolerated better than high fiber/fibrous foods/raw vegetables. - If possible, avoid medications that inhibit gastric/intestinal motility such as narcotic medications. Procedure Code(s): --- Professional --- 03317, Esophagogastroduodenoscopy, flexible, transoral; with biopsy, single or multiple Diagnosis Code(s): --- Professional --- R10.13, Epigastric pain R10.11, Right upper quadrant pain R12, Heartburn CPT copyright 2019 [employer]. All rights reserved. The codes documented in this report are preliminary and upon outpatient coder review may be revised to meet current compliance requirements. Cedric Mckay MD Cedric Mckay MD 06/05/2021 8:30:31 AM Electronically signed by Cedric Mckay MD Number of Addenda: 0 Note Initiated On: 06/05/2021 8:13 AM Estimated Blood Loss: Estimated blood loss: none.
--- NOTE | 2021-06-05 08:52 | ROOR ---
Patient Name: Annetta Bond Procedure Date: 06/05/2021 8:13 AM Date of : 1970 Age: 50 Room: [facility] Gender: Female Note Status: Finalized Procedure: Colonoscopy Indications: Screening for colorectal malignant neoplasm Providers: Cedric Mckay MD Referring MD: Asad Coats MD Requesting Provider: Medicines: Monitored Anesthesia Care Complications: No immediate complications. Procedure: Pre-Anesthesia Assessment: - The heart rate, respiratory rate, oxygen saturations, blood pressure, adequacy of pulmonary ventilation, and response to care were monitored throughout the procedure. The Colonoscope was introduced through the anus and advanced to the cecum, identified by appendiceal orifice and ileocecal valve. The colonoscopy was performed without difficulty. The patient tolerated the procedure well. The quality of the bowel preparation was good. Findings: The perianal and digital rectal examinations were normal. Four sessile polyps were found in the rectum, sigmoid colon and splenic flexure. The polyps were 4 to 5 mm in size. These polyps were removed with a cold snare. Resection and retrieval were complete. Mild sigmoid diverticulosis and small internal hemorrhoids. The exam was otherwise without abnormality. Impression: - Four 4 to 5 mm polyps in the rectum, in the sigmoid colon and at the splenic flexure, removed with a cold snare. Resected and retrieved. - Mild sigmoid diverticulosis and small internal hemorrhoids. - The examination was otherwise normal. Recommendation: - Repeat colonoscopy in 3 - 5 years for surveillance based on pathology results. - Telephone GI clinic for pathology results in 2 weeks. Procedure Code(s): --- Professional --- 85596, Colonoscopy, flexible; with removal of tumor(s), polyp(s), or other lesion(s) by snare technique Diagnosis Code(s): --- Professional --- Z12.11, Encounter for screening for malignant neoplasm of colon K62.1, Rectal polyp K63.5, Polyp of colon CPT copyright 2019 [employer]. All rights reserved. The codes documented in this report are preliminary and upon telephone claims representative review may be revised to meet current compliance requirements. Cedric Mckay MD Cedric Mckay MD 06/05/2021 8:52:13 AM Electronically signed by Cedric Mckay MD Number of Addenda: 0 Note Initiated On: 06/05/2021 8:13 AM Estimated Blood Loss: Estimated blood loss: none.
[2021-06-05 09:20] VITALS: BP 142/83
== END 2021-06-05 09:27 | disposition home or self-care (01) ==
LOC: M OPP 06:51
PROVIDERS: ATTEND Internal Medicine Gastroenterology
DX: Z12.11 Encounter for screening for malignant neoplasm of colon (principal); K63.5 Polyp of colon; K62.1 Rectal polyp; K57.30 Diverticulosis of large intestine without perforation or abscess without bleeding; K64.8 Other hemorrhoids; K29.70 Gastritis, unspecified, without bleeding; R10.2 Pelvic and perineal pain; R10.13 Epigastric pain; R10.11 Right upper quadrant pain; Z79.84 Long term (current) use of oral hypoglycemic drugs; Z79.899 Other long term (current) drug therapy; Z91.041 Radiographic dye allergy status; Z86.2 Personal history of diseases of the blood and blood-forming organs and certain disorders involving the immune mechanism; Z87.891 Personal history of nicotine dependence; Z80.1 Family history of malignant neoplasm of trachea, bronchus and lung; Z80.2 Family history of malignant neoplasm of other respiratory and intrathoracic organs; Z80.8 Family history of malignant neoplasm of other organs or systems
CPT/HCPCS: 43239; 45385; 88305; J3010

== ENCOUNTER 2022-01-06 08:18 | Emergency (ER) | payer OTHER ==
[~2022-01-06] VITALS: Ht 152.4 cm; Wt 111.6 kg
[~2022-01-06 08:18] MED LIST changes: -NS 1,000 ML IV ONE
[2022-01-06 08:19] VITALS: BP 160/98
[2022-01-06] MEDS ORDERED: LIDO5DIS41 TOP (09:15)
[2022-01-06] MEDS ORDERED: CYCL5TAB PO (09:15)
== END 2022-01-06 09:20 | disposition home or self-care (01) ==
LOC: M ED 08:18
DX: S39.012A Strain of muscle, fascia and tendon of lower back, initial encounter (principal); E11.9 Type 2 diabetes mellitus without complications; K21.9 Gastro-esophageal reflux disease without esophagitis; Z90.710 Acquired absence of both cervix and uterus; Z85.43 Personal history of malignant neoplasm of ovary; Z88.6 Allergy status to analgesic agent; Z91.041 Radiographic dye allergy status; Z79.82 Long term (current) use of aspirin; Z79.84 Long term (current) use of oral hypoglycemic drugs; Z79.899 Other long term (current) drug therapy

== ENCOUNTER 2022-02-17 12:00 | Inpatient (IN) | payer OTHER ==
[~2022-02-17] VITALS: Ht 152.4 cm; Wt 112.8 kg
[~2022-02-17 12:00] MED LIST changes: -ATOR40TA75; +ATOR40TA75 PO; -CETI-24; +CETI-24 PO; +CYCL5TAB PO; -GABA-282; +GABA-282 PO; +LIDO5DIS41 TOP; -METF-838; +METF-838 PO; -OXYB10TA23; +OXYB10TA23 PO; -PANT40TA29; +PANT40TA29 PO
[2022-02-17] MEDS ORDERED: fentaNYL 100 MCG/2 ML INJECTION IV ONE ×2 (13:25→17:05)
[2022-02-17] MEDS ORDERED: GABA-282 PO (13:59)
[2022-02-17] MEDS ORDERED: ERGO500029 PO (13:59)
[2022-02-17] MEDS ORDERED: TRAZ-252 PO (13:59)
[2022-02-17] MEDS ORDERED: HOME MED LIST COMPLETE! XX SCH (14:00)
[2022-02-17 15:23] LABS: BASO # 0.1 10^3/uL (0.0-0.2); BASO % 0.9 % (0.0-1.0); EOS % 0.5 % (0.0-3.0); HEMOGLOBIN 13.9 g/dl (12.0-15.5); LYMPH # 0.8 10^3/uL (1.5-5.0); LYMPH % 9.7 % (24.0-44.0); MEAN CORPUSCULAR HEMOGLOBIN 29.4 pg (27.0-33.0); MEAN CORPUSCULAR HGB CONC 31.6 g/dl (32.0-36.5); MEAN CORPUSCULAR VOLUME 93.2 fl (80.0-96.0); MONO # 0.4 10^3/uL (0.0-0.8); MONO % 4.8 % (2.0-8.0); NEUTROPHILS # 6.7 10^3/uL (1.5-8.5); NEUTROPHILS % 83.6 % (36.0-66.0); PLATELET COUNT, AUTOMATED 239 10^3/uL (150-450); RED BLOOD COUNT 4.72 10^6/uL (4.00-5.40); WHITE BLOOD COUNT 8.1 10^3/uL (4.0-10.0)
[2022-02-17 15:42] LABS: BLOOD UREA NITROGEN 13 MG/DL (7-18); CALCIUM LEVEL 9.3 MG/DL (8.5-10.1); CARBON DIOXIDE LEVEL 28 MEQ/L (21-32); CHLORIDE LEVEL 109 MEQ/L (98-107); CREATININE FOR GFR 0.74 MG/DL (0.55-1.30); GLOMERULAR FILTRATION RATE > 60.0 (>51); GLUCOSE, FASTING 93 MG/DL (70-100); POTASSIUM SERUM 4.4 MEQ/L (3.5-5.1); SODIUM LEVEL 140 MEQ/L (136-145)
[2022-02-17 16:08] LABS: RSV AMPLIFICATION NEGATIVE (NEGATIVE)
[2022-02-17] MEDS ORDERED: MOM 30ML SUSPENSION UDC PO PRN (18:25)
[2022-02-17] MEDS ORDERED: ONDANSETRON 4MG 2ML VIAL IV PRN (18:30)
[2022-02-17] MEDS: NS 1,000 ML IV SCH (18:35)
[2022-02-17] MEDS: MORPHINE 4 MG/ML 1ML VIAL/SYRINGE IV PRN (20:04)
[2022-02-17 20:25] VITALS: BP 145/99
[2022-02-17] MEDS: DOCUSATE SODIUM 100MG CAPSULE PO SCH (20:58)
[2022-02-17] MEDS: GABAPENTIN 300 MG CAP PO SCH (20:58)
[2022-02-17] MEDS: PANTOPRAZOLE 40MG TAB (PROTONIX) PO SCH (20:59)
[2022-02-17] MEDS: KETOROLAC 30 MG/ML 1ML VIAL IV PRN (23:23)
[2022-02-18] MEDS ORDERED: GLUCOSE 4GM CHEW TABLET PO PRN (00:35)
[2022-02-18] MEDS ORDERED: DEXTROSE 50% 50 ML SYRINGE IV PRN (00:35)
[2022-02-18] MEDS ORDERED: GLUCAGON INJ 1MG VIAL SC PRN (00:35)
[2022-02-18] MEDS: MORPHINE 4 MG/ML 1ML VIAL/SYRINGE IV PRN ×2 (03:32→12:49)
[2022-02-18 06:00] VITALS: BP 114/80
[2022-02-18 06:22] LABS: HEMOGLOBIN A1c 5.5 %
[2022-02-18 06:53] LABS: BLOOD UREA NITROGEN 14 MG/DL (7-18); CALCIUM LEVEL 8.5 MG/DL (8.5-10.1); CARBON DIOXIDE LEVEL 26 MEQ/L (21-32); CHLORIDE LEVEL 109 MEQ/L (98-107); GLOMERULAR FILTRATION RATE > 60.0 (>51); GLUCOSE, FASTING 100 MG/DL (70-100); SODIUM LEVEL 140 MEQ/L (136-145)
[2022-02-18] MEDS ORDERED: INSULIN LISPRO (NovoLOG) PER UNIT SC SCH ×2 (07:30→21:00)
[2022-02-18] MEDS: KETOROLAC 30 MG/ML 1ML VIAL IV PRN (07:45)
[2022-02-18] MEDS: GABAPENTIN 300 MG CAP PO SCH ×3 (07:45→20:45)
[2022-02-18] MEDS: oxyBUTYnin *DITROPAN XL* 5 MG TABCR PO SCH (07:45)
[2022-02-18] MEDS: DOCUSATE SODIUM 100MG CAPSULE PO SCH ×2 (07:46→20:48)
[2022-02-18] MEDS: PANTOPRAZOLE 40MG TAB (PROTONIX) PO SCH ×2 (07:46→20:45)
[2022-02-18] MEDS: NS 1,000 ML IV SCH (07:46)
[2022-02-18] MEDS: ENOXAPARIN 40MG/0.4ML SYRINGE (J1650 PER 10MG) SC SCH (07:46)
[2022-02-18 08:51] LABS: BASO # 0.1 10^3/uL (0.0-0.2); EOS # 0.1 10^3/uL (0.0-0.5); EOS % 0.8 % (0.0-3.0); HEMATOCRIT 36.2 % (36.0-47.0); LYMPH # 1.5 10^3/uL (1.5-5.0); LYMPH % 25.2 % (24.0-44.0); MEAN CORPUSCULAR HEMOGLOBIN 30.6 pg (27.0-33.0); MEAN CORPUSCULAR HGB CONC 32.6 g/dl (32.0-36.5); MONO # 0.6 10^3/uL (0.0-0.8); MONO % 9.8 % (2.0-8.0); NEUTROPHILS # 3.8 10^3/uL (1.5-8.5); NEUTROPHILS % 62.9 % (36.0-66.0); PLATELET COUNT, AUTOMATED 219 10^3/uL (150-450); RED BLOOD COUNT 3.85 10^6/uL (4.00-5.40)
[2022-02-18 08:54] LABS: HEMOGLOBIN 11.8 g/dl (12.0-15.5)
[2022-02-18] MEDS ORDERED: oxyCODONE 5MG TAB PO PRN ×2 (09:05→09:15)
[2022-02-18 14:00] VITALS: BP 120/82
[2022-02-18] MEDS: ATORVASTATIN 20 MG TAB PO SCH (15:51)
[2022-02-18] MEDS: SENNA 8.6 MG TAB (SENOKOT) PO SCH ×2 (15:52→20:48)
[2022-02-18] MEDS: KETOROLAC 30 MG/ML 1ML VIAL IV SCH ×2 (15:52→20:45)
[2022-02-18 19:45] VITALS: BP 110/100
[2022-02-18] MEDS ORDERED: D5W/0.9% SODIUM CHLORIDE 1,000 ML IV SCH (23:40)
[2022-02-19] MEDS: KETOROLAC 30 MG/ML 1ML VIAL IV SCH ×4 (01:59→20:00)
[2022-02-19 05:38] VITALS: BP 125/86
[2022-02-19 06:45] LABS: BASO # 0.1 10^3/uL (0.0-0.2); BASO % 1.1 % (0.0-1.0); EOS # 0.1 10^3/uL (0.0-0.5); EOS % 1.9 % (0.0-3.0); HEMATOCRIT 34.5 % (36.0-47.0); HEMOGLOBIN 10.9 g/dl (12.0-15.5); LYMPH % 19.1 % (24.0-44.0); MEAN CORPUSCULAR HEMOGLOBIN 30.2 pg (27.0-33.0); MEAN CORPUSCULAR HGB CONC 31.6 g/dl (32.0-36.5); MEAN CORPUSCULAR VOLUME 95.6 fl (80.0-96.0); MONO # 0.4 10^3/uL (0.0-0.8); MONO % 8.3 % (2.0-8.0); NEUTROPHILS # 3.7 10^3/uL (1.5-8.5); NEUTROPHILS % 69.2 % (36.0-66.0); PLATELET COUNT, AUTOMATED 182 10^3/uL (150-450); RED BLOOD COUNT 3.61 10^6/uL (4.00-5.40); WHITE BLOOD COUNT 5.3 10^3/uL (4.0-10.0)
[2022-02-19 07:17] LABS: BLOOD UREA NITROGEN 18 MG/DL (7-18); CALCIUM LEVEL 8.7 MG/DL (8.5-10.1); CARBON DIOXIDE LEVEL 24 MEQ/L (21-32); CHLORIDE LEVEL 113 MEQ/L (98-107); CREATININE FOR GFR 0.73 MG/DL (0.55-1.30); GLOMERULAR FILTRATION RATE > 60.0 (>51); GLUCOSE, FASTING 119 MG/DL (70-100); POTASSIUM SERUM 4.3 MEQ/L (3.5-5.1); SODIUM LEVEL 143 MEQ/L (136-145)
[2022-02-19] MEDS: ATORVASTATIN 20 MG TAB PO SCH (08:45)
[2022-02-19] MEDS: oxyBUTYnin *DITROPAN XL* 5 MG TABCR PO SCH (08:45)
[2022-02-19] MEDS: GABAPENTIN 300 MG CAP PO SCH ×3 (08:45→21:00)
[2022-02-19] MEDS: PANTOPRAZOLE 40MG TAB (PROTONIX) PO SCH ×2 (08:45→21:00)
[2022-02-19] MEDS: SENNA 8.6 MG TAB (SENOKOT) PO SCH ×2 (08:46→21:00)
[2022-02-19] MEDS: DOCUSATE SODIUM 100MG CAPSULE PO SCH ×2 (08:46→21:00)
[2022-02-19] MEDS: ENOXAPARIN 40MG/0.4ML SYRINGE (J1650 PER 10MG) SC SCH (08:47)
[2022-02-19] MEDS: MORPHINE 4 MG/ML 1ML VIAL/SYRINGE IV PRN (12:25)
[2022-02-19 14:00] VITALS: BP 133/88
[2022-02-19] MEDS ORDERED: fentaNYL 100 MCG/2 ML INJECTION IV PRN ×2 (17:30→21:40)
[2022-02-19] MEDS ORDERED: EPINEPHrine INJ 1 MG/ML 1ML AMP PN ONE (17:30)
[2022-02-19] MEDS ORDERED: ROPIvacaine 0.5% 30ML INJECTION (J2795 PER 1MG) PN ONE (17:30)
[2022-02-19] MEDS ORDERED: LIDOCAINE 1% SDV 5ML VIAL PN ONE (17:30)
[2022-02-19] MEDS ORDERED: LIDOCAINE 2% 100MG/5ML SDV (FOR ANES.) As Ordered ONE (18:23)
[2022-02-19] MEDS ORDERED: fentaNYL 100 MCG/2 ML INJECTION As Ordered ONE (18:23)
[2022-02-19] MEDS ORDERED: ROCURONIUM BROMIDE 50 MG/5 ML VIAL As Ordered ONE (18:23)
[2022-02-19] MEDS ORDERED: dexameTHASONE 4 MG/ML 1ML VIAL (J1100 PER 1MG) As Ordered ONE (18:23)
[2022-02-19] MEDS ORDERED: propofoL 200 MG/20 ML VIAL As Ordered ONE (18:23)
[2022-02-19] MEDS ORDERED: MIDAZOLAM INJ 2MG/2ML VIAL (J2250 PER 1MG) As Ordered ONE (18:23)
[2022-02-19] MEDS: MIDAZOLAM INJ 2MG/2ML VIAL (J2250 PER 1MG) IV PRN ×2 (18:27→18:28)
[2022-02-19] MEDS ORDERED: ceFAZolin 2 GM/D5W 50 ML IV BAG (J0690 PER 500MG) As Ordered ONE (19:04)
[2022-02-19] MEDS ORDERED: ceFAZolin 1GM VIAL (J0690 PER 500MG) As Ordered ONE (19:18)
[2022-02-19] MEDS ORDERED: PHENYLephrine 500MCG 5ML (100MCG/ML) SYRINGE As Ordered ONE (19:31)
[2022-02-19] MEDS ORDERED: TRANEXAMIC ACID 100 MG/ML 10ML VIAL As Ordered ONE (19:45)
[2022-02-19] MEDS ORDERED: HYDROmorphone HCL 2MG/ML 1ML VIAL As Ordered ONE (20:03)
[2022-02-19] MEDS ORDERED: ePHEDrine SULFATE 25 MG/5 ML(5MG/ML) SYRINGE As Ordered ONE (20:11)
[2022-02-19] MEDS ORDERED: LABETALOL 100MG/20ML VIAL As Ordered ONE (21:04)
[2022-02-19] MEDS ORDERED: SUGAMMADEX SODIUM 500 MG/5 ML VIAL (BRIDION) As Ordered ONE (21:07)
[2022-02-19] MEDS ORDERED: KETOROLAC 60MG 2ML VIAL As Ordered ONE (21:07)
[2022-02-19] MEDS ORDERED: ONDANSETRON 4MG 2ML VIAL As Ordered ONE (21:07)
[2022-02-19] MEDS ORDERED: ACETAMINOPHEN 1000MG 100ML IV BTL (OFIRMEV) (J0131 PER 10MG) As Ordered ONE (21:34)
[2022-02-19] MEDS ORDERED: PERCOCET 5MG/325MG TAB PO PRN (21:40)
[2022-02-19] MEDS ORDERED: HYDROMORPHONE HCL 0.5 MG/ 0.5 ML SYRINGE (J1170 PER 1) IV PRN (21:40)
[2022-02-19] MEDS ORDERED: LR 1,000 ML IV SCH ×2 (21:40→23:25)
[2022-02-19] MEDS ORDERED: ONDANSETRON 4MG 2ML VIAL IV PRN (21:40)
[2022-02-19 22:45] VITALS: BP 121/73
[2022-02-19 23:15] VITALS: BP 119/75
[2022-02-19 23:45] VITALS: BP 119/74
[2022-02-20 00:45] VITALS: BP 123/70
[2022-02-20 01:45] VITALS: BP 121/78
[2022-02-20 02:45] VITALS: BP 107/66
[2022-02-20] MEDS: ceFAZolin SOD 1 GM in D5W MINI-BAG PLUS 50 ML IV SCH ×2 (03:10→12:14)
[2022-02-20] MEDS: KETOROLAC 30 MG/ML 1ML VIAL IV SCH ×2 (03:10→09:47)
[2022-02-20 03:45] VITALS: BP 107/67
[2022-02-20 06:00] VITALS: BP 106/68
[2022-02-20 06:25] LABS: BASO % 0.1 % (0.0-1.0); HEMATOCRIT 32.7 % (36.0-47.0); HEMOGLOBIN 10.3 g/dl (12.0-15.5); LYMPH # 0.3 10^3/uL (1.5-5.0); LYMPH % 4.7 % (24.0-44.0); MEAN CORPUSCULAR HEMOGLOBIN 30.2 pg (27.0-33.0); MEAN CORPUSCULAR HGB CONC 31.5 g/dl (32.0-36.5); MEAN CORPUSCULAR VOLUME 95.9 fl (80.0-96.0); MONO # 0.2 10^3/uL (0.0-0.8); MONO % 2.2 % (2.0-8.0); NEUTROPHILS # 6.6 10^3/uL (1.5-8.5); NEUTROPHILS % 92.4 % (36.0-66.0); PLATELET COUNT, AUTOMATED 195 10^3/uL (150-450); RED BLOOD COUNT 3.41 10^6/uL (4.00-5.40); WHITE BLOOD COUNT 7.2 10^3/uL (4.0-10.0)
[2022-02-20 07:02] LABS: BLOOD UREA NITROGEN 13 MG/DL (7-18); CALCIUM LEVEL 8.7 MG/DL (8.5-10.1); CARBON DIOXIDE LEVEL 25 MEQ/L (21-32); CHLORIDE LEVEL 109 MEQ/L (98-107); CREATININE FOR GFR 0.94 MG/DL (0.55-1.30); GLOMERULAR FILTRATION RATE > 60.0 (>51); GLUCOSE, FASTING 209 MG/DL (70-100); POTASSIUM SERUM 4.6 MEQ/L (3.5-5.1); SODIUM LEVEL 140 MEQ/L (136-145)
[2022-02-20 08:00] VITALS: BP 107/69
[2022-02-20] MEDS ORDERED: ASPIRIN 81 MG CHEW TABLET PO SCH (09:00)
[2022-02-20] MEDS: oxyBUTYnin *DITROPAN XL* 5 MG TABCR PO SCH (09:47)
[2022-02-20] MEDS: PANTOPRAZOLE 40MG TAB (PROTONIX) PO SCH (09:48)
[2022-02-20] MEDS: DOCUSATE SODIUM 100MG CAPSULE PO SCH (09:48)
[2022-02-20] MEDS: ATORVASTATIN 20 MG TAB PO SCH (09:48)
[2022-02-20] MEDS: SENNA 8.6 MG TAB (SENOKOT) PO SCH (10:02)
[2022-02-20] MEDS: GABAPENTIN 300 MG CAP PO SCH (10:02)
[2022-02-20] MEDS: ENOXAPARIN 40MG/0.4ML SYRINGE (J1650 PER 10MG) SC SCH (10:04)
[2022-02-20] MEDS ORDERED: PERC5TAB12 PO (10:09)
== END 2022-02-20 14:15 | disposition home or self-care (01) | DRG 313 ==
LOC: M ED 12:00 → M ED INP 18:23 → M MS5PR 20:30
PROVIDERS: ADMIT Internal Medicine Nephrology; ATTEND Internal Medicine Nephrology
PROC: 0QSH04Z Reposition Left Tibia with Internal Fixation Device, Open Approach (ICD-10-PCS; 2022-02-19)
PROC: 0QSK04Z Reposition Left Fibula with Internal Fixation Device, Open Approach (ICD-10-PCS; principal; 2022-02-19 16:30)
DX: S82.852A Displaced trimalleolar fracture of left lower leg, initial encounter for closed fracture (principal); E88.81 Metabolic syndrome and other insulin resistance; K76.0 Fatty (change of) liver, not elsewhere classified; E66.01 Morbid (severe) obesity due to excess calories; G62.9 Polyneuropathy, unspecified; Z68.41 Body mass index [BMI] 40.0-44.9, adult; G47.33 Obstructive sleep apnea (adult) (pediatric); R73.01 Impaired fasting glucose; E78.5 Hyperlipidemia, unspecified; W10.9XXA Fall (on) (from) unspecified stairs and steps, initial encounter; M50.30 Other cervical disc degeneration, unspecified cervical region; D64.9 Anemia, unspecified; Y92.009 Unspecified place in unspecified non-institutional (private) residence as the place of occurrence of the external cause; Y93.89 Activity, other specified; Y99.8 Other external cause status; Z79.82 Long term (current) use of aspirin; K31.819 Angiodysplasia of stomach and duodenum without bleeding; Z79.84 Long term (current) use of oral hypoglycemic drugs; Z79.899 Other long term (current) drug therapy; Z91.041 Radiographic dye allergy status; Z88.5 Allergy status to narcotic agent; M51.36 Other intervertebral disc degeneration, lumbar region; Z95.2 Presence of prosthetic heart valve; Z85.44 Personal history of malignant neoplasm of other female genital organs; Z98.1 Arthrodesis status; Z90.710 Acquired absence of both cervix and uterus; Z87.891 Personal history of nicotine dependence

== ENCOUNTER → 2022-03-05 | Outpatient (CLI) | payer OTHER ==
[~2022-03-05] MED LIST changes: +ERGO500029 PO; +PERC5TAB12 PO; +TRAZ-252 PO
== END ==
LOC: M SOG 08:19
PROVIDERS: ATTEND Orthopaedic Surgery
DX: Z47.89 Encounter for other orthopedic aftercare (principal)

== ENCOUNTER → 2022-03-25 | Outpatient (CLI) | payer OTHER | LOC: M SOG 14:33 | PROVIDERS: ATTEND Orthopaedic Surgery | DX: Z47.89 Encounter for other orthopedic aftercare (principal) ==

== ENCOUNTER → 2022-04-09 | Outpatient (CLI) | payer OTHER ==
[2022-04-09 13:12] LABS: BASO # 0.1 10^3/uL (0.0-0.2); BASO % 1.6 % (0.0-1.0); EOS # 0.1 10^3/uL (0.0-0.5); EOS % 2.9 % (0.0-3.0); HEMATOCRIT 38.7 % (36.0-47.0); HEMOGLOBIN 12.2 g/dl (12.0-15.5); LYMPH # 1.2 10^3/uL (1.5-5.0); LYMPH % 31.9 % (24.0-44.0); MEAN CORPUSCULAR HEMOGLOBIN 30.7 pg (27.0-33.0); MEAN CORPUSCULAR HGB CONC 31.5 g/dl (32.0-36.5); MEAN CORPUSCULAR VOLUME 97.5 fl (80.0-96.0); MONO # 0.3 10^3/uL (0.0-0.8); MONO % 7.2 % (2.0-8.0); NEUTROPHILS # 2.1 10^3/uL (1.5-8.5); NEUTROPHILS % 56.1 % (36.0-66.0); PLATELET COUNT, AUTOMATED 213 10^3/uL (150-450); RED BLOOD COUNT 3.97 10^6/uL (4.00-5.40); WHITE BLOOD COUNT 3.8 10^3/uL (4.0-10.0)
[2022-04-09 14:47] LABS: ALBUMIN 3.6 GM/DL (3.2-5.2); ALT/SGPT 77 U/L (12-78); BILIRUBIN,TOTAL 0.4 MG/DL (0.2-1.0); BLOOD UREA NITROGEN 15 MG/DL (7-18); CALCIUM LEVEL 9.6 MG/DL (8.5-10.1); CARBON DIOXIDE LEVEL 29 MEQ/L (21-32); CHLORIDE LEVEL 106 MEQ/L (98-107); CHOLESTEROL LEVEL 215 MG/DL (<200); CHOLESTEROL RISK RATIO 5.972 (<5); CREATININE FOR GFR 0.74 MG/DL (0.55-1.30); FERRITIN 68 NG/ML (8-252); GLOMERULAR FILTRATION RATE > 60.0 (>51); GLUCOSE, FASTING 97 MG/DL (70-100); HDL CHOLESTEROL 36 MG/DL (>40); NON-HDL-C 179 MG/DL; NT-PRO BNP 26 PG/ML (<125); SODIUM LEVEL 140 MEQ/L (136-145); TRIGLYCERIDES LEVEL 401 MG/DL (<150)
[2022-04-09 15:14] LABS: VITAMIN B12 LEVEL 725 PG/ML (247-911)
[2022-04-09 15:24] LABS: TOTAL 25(OH) VITAMIN D 44.1 NG/ML (30.0-100.0)
[2022-04-09 15:25] LABS: HEMOGLOBIN A1c 5.4 %
== END ==
LOC: M PLALAB 10:25
PROVIDERS: ATTEND Family Medicine
DX: E55.9 Vitamin D deficiency, unspecified (principal)

== ENCOUNTER → 2022-05-06 | Outpatient (CLI) | payer OTHER | LOC: M SOG 08:47 | PROVIDERS: ATTEND Student in an Organized Health Care Education/Training Program | DX: S82.852D Displaced trimalleolar fracture of left lower leg, subsequent encounter for closed fracture with routine healing (principal); W18.30XD Fall on same level, unspecified, subsequent encounter; Y92.009 Unspecified place in unspecified non-institutional (private) residence as the place of occurrence of the external cause ==

== ENCOUNTER → 2022-08-05 | Outpatient (CLI) | payer OTHER | LOC: M SOG 08:04 | PROVIDERS: ATTEND Student in an Organized Health Care Education/Training Program | DX: Z47.89 Encounter for other orthopedic aftercare (principal) ==

== ENCOUNTER → 2022-08-19 | Outpatient (CLI) | payer OTHER | LOC: M WHC 08:01 | PROVIDERS: ATTEND Nurse Practitioner Family | DX: Z12.31 Encounter for screening mammogram for malignant neoplasm of breast (principal) ==

== ENCOUNTER → 2022-08-19 | Outpatient (REF) | payer OTHER | LOC: M SFHCWAGY 13:00 | PROVIDERS: ATTEND Nurse Practitioner Family | DX: Z12.4 Encounter for screening for malignant neoplasm of cervix (principal) ==

== ENCOUNTER → 2022-08-24 | Outpatient (CLI) | payer OTHER ==
[2022-08-24 13:47] LABS: BASO # 0.1 10^3/uL (0.0-0.2); BASO % 1.6 % (0.0-1.0); EOS # 0.1 10^3/uL (0.0-0.5); EOS % 2.1 % (0.0-3.0); HEMATOCRIT 38.9 % (36.0-47.0); LYMPH # 1.7 10^3/uL (1.5-5.0); LYMPH % 32.1 % (24.0-44.0); MEAN CORPUSCULAR HEMOGLOBIN 29.4 pg (27.0-33.0); MEAN CORPUSCULAR HGB CONC 30.8 g/dl (32.0-36.5); MEAN CORPUSCULAR VOLUME 95.3 fl (80.0-96.0); MONO # 0.4 10^3/uL (0.0-0.8); MONO % 8.4 % (2.0-8.0); NEUTROPHILS # 2.9 10^3/uL (1.5-8.5); NEUTROPHILS % 55.6 % (36.0-66.0); PLATELET COUNT, AUTOMATED 257 10^3/uL (150-450); RED BLOOD COUNT 4.08 10^6/uL (4.00-5.40); WHITE BLOOD COUNT 5.1 10^3/uL (4.0-10.0)
[2022-08-24 13:58] LABS: ALBUMIN 3.8 G/DL (3.2-5.2); BLOOD UREA NITROGEN 15 MG/DL (9-23); CALCIUM LEVEL 9.8 MG/DL (8.5-10.1); CARBON DIOXIDE LEVEL 30 MMOL/L (20-31); CHLORIDE LEVEL 106 MMOL/L (98-107); CHOLESTEROL LEVEL 157 MG/DL (<200); CHOLESTEROL RISK RATIO 4.31 (<5); CREATININE FOR GFR 0.83 MG/DL (0.55-1.30); FERRITIN 32.4 NG/ML (7.3-270.7); GLOMERULAR FILTRATION RATE > 60.0 (>51); GLUCOSE, FASTING 84 MG/DL (60-100); HDL CHOLESTEROL 36.4 MG/DL (>40); NON-HDL-C 121 MG/DL; PHOSPHORUS LEVEL 4.6 MG/DL (2.5-4.9); POTASSIUM SERUM 4.7 MMOL/L (3.5-5.1); PTH INTACT 73.6 PG/ML (18.5-88.0); SODIUM LEVEL 141 MMOL/L (136-145); TOTAL 25(OH) VITAMIN D 55.4 NG/ML (20.0-100.0)
[2022-08-24 15:30] LABS: TRIGLYCERIDES LEVEL 273 MG/DL (<150)
== END ==
LOC: M PLALAB 09:43
PROVIDERS: ATTEND Family Medicine
DX: E78.2 Mixed hyperlipidemia (principal)

== ENCOUNTER → 2023-04-12 | Outpatient (CLI) | payer MEDICARE ==
[2023-04-12 14:03] LABS: BASO # 0.1 10^3/uL (0.0-0.2); BASO % 1.4 % (0.0-1.0); EOS # 0.1 10^3/uL (0.0-0.5); EOS % 2.5 % (0.0-3.0); HEMOGLOBIN 12.5 g/dl (12.0-15.5); LYMPH # 1.4 10^3/uL (1.5-5.0); LYMPH % 28.5 % (24.0-44.0); MEAN CORPUSCULAR HEMOGLOBIN 30.1 pg (27.0-33.0); MEAN CORPUSCULAR HGB CONC 32.9 g/dl (32.0-36.5); MEAN CORPUSCULAR VOLUME 91.6 fl (80.0-96.0); MONO # 0.4 10^3/uL (0.0-0.8); MONO % 7.2 % (2.0-8.0); NEUTROPHILS # 2.9 10^3/uL (1.5-8.5); NEUTROPHILS % 60.2 % (36.0-66.0); PLATELET COUNT, AUTOMATED 236 10^3/uL (150-450); RED BLOOD COUNT 4.15 10^6/uL (4.00-5.40); WHITE BLOOD COUNT 4.9 10^3/uL (4.0-10.0)
[2023-04-12 14:05] LABS: ALBUMIN 3.7 G/DL (3.2-5.2); ALKALINE PHOSPHATASE 162 U/L (46-116); ALT/SGPT 49 U/L (7.0-40); AST/SGOT 30 U/L (<34); BILIRUBIN,TOTAL 0.7 MG/DL (0.3-1.2); BLOOD UREA NITROGEN 17 MG/DL (9-23); CALCIUM LEVEL 9.4 MG/DL (8.5-10.1); CARBON DIOXIDE LEVEL 30 MMOL/L (20-31); CHLORIDE LEVEL 106 MMOL/L (98-107); CREATININE FOR GFR 0.74 MG/DL (0.55-1.30); GLOMERULAR FILTRATION RATE > 60.0 (>51); GLUCOSE, FASTING 78 MG/DL (60-100); IRON (FE) 78 UG/DL (50-170); PERCENT SATURATION 20.4 % (13.2-45.0); POTASSIUM SERUM 4.3 MMOL/L (3.5-5.1); PTH INTACT 51.4 PG/ML (18.5-88.0); SODIUM LEVEL 142 MMOL/L (136-145); TOTAL IRON BINDING CAPACITY 383 UG/DL (250-425); TOTAL PROTEIN 6.7 G/DL (5.7-8.2)
[2023-04-12 14:09] LABS: TOTAL 25(OH) VITAMIN D 93.9 NG/ML (20.0-100.0); VITAMIN B12 LEVEL 634 PG/ML (211-911)
[2023-04-12 14:13] LABS: HEMOGLOBIN A1c 4.5 % (4.0-6.0)
== END ==
LOC: M PLALAB 10:53
PROVIDERS: ATTEND Family Medicine
DX: E55.9 Vitamin D deficiency, unspecified (principal); D50.9 Iron deficiency anemia, unspecified

== ENCOUNTER → 2023-04-12 | Outpatient (CLI) | payer MEDICARE, OTHER | LOC: M RAD 10:25 | PROVIDERS: ATTEND Nurse Practitioner Adult Health | DX: Z87.891 Personal history of nicotine dependence (principal) ==

== ENCOUNTER → 2023-08-23 | Outpatient (REF) | payer MEDICARE | LOC: M SFHCWAGY 18:00 | PROVIDERS: ATTEND Nurse Practitioner Family | DX: Z12.72 Encounter for screening for malignant neoplasm of vagina (principal); Z11.51 Encounter for screening for human papillomavirus (HPV) | CPT/HCPCS: 87624; G0123 ==

== ENCOUNTER → 2023-08-23 | Outpatient (CLI) | payer MEDICARE | LOC: M WHC 11:07 | PROVIDERS: ATTEND Nurse Practitioner Family | DX: Z12.31 Encounter for screening mammogram for malignant neoplasm of breast (principal); Z13.820 Encounter for screening for osteoporosis; M85.851 Other specified disorders of bone density and structure, right thigh; M85.852 Other specified disorders of bone density and structure, left thigh ==

== ENCOUNTER → 2023-09-23 | Outpatient (CLI) | payer MEDICARE ==
[2023-09-23 11:00] LABS: BASO # 0.1 10^3/uL (0.0-0.2); BASO % 1.7 % (0.0-1.0); EOS # 0.1 10^3/uL (0.0-0.5); EOS % 2.3 % (0.0-3.0); HEMATOCRIT 36.4 % (36.0-47.0); HEMOGLOBIN 11.4 g/dl (12.0-15.5); LYMPH # 1.7 10^3/uL (1.5-5.0); LYMPH % 32.6 % (24.0-44.0); MEAN CORPUSCULAR HEMOGLOBIN 27.8 pg (27.0-33.0); MEAN CORPUSCULAR HGB CONC 31.3 g/dl (32.0-36.5); MEAN CORPUSCULAR VOLUME 88.8 fl (80.0-96.0); MONO # 0.4 10^3/uL (0.0-0.8); NEUTROPHILS # 2.9 10^3/uL (1.5-8.5); PLATELET COUNT, AUTOMATED 241 10^3/uL (150-450); WHITE BLOOD COUNT 5.2 10^3/uL (4.0-10.0)
[2023-09-23 11:26] LABS: CREATININE, URINE 185.5 MG/DL; MAU/CREAT RATIO 3.7 MCG/MG (0.0-30.0)
[2023-09-23 11:28] LABS: CHOLESTEROL RISK RATIO 4.02 (<5); LDL CHOLESTEROL 58.2 MG/DL (<100)
[2023-09-23 11:29] LABS: FERRITIN 6.7 NG/ML (7.3-270.7); THYROID STIMULATING HORMONE 2.461 uIU/ML (0.55-4.78)
[2023-09-23 11:30] LABS: FREE T4 1.05 NG/DL (0.89-1.76)
[2023-09-23 11:33] LABS: HEMOGLOBIN A1c 4.9 % (4.0-6.0)
[2023-09-27 02:11] LABS: SOLUBLE TRANSFERRIN RECEPTOR 41.7 nmol/L (12.2-27.3)
== END ==
LOC: M PLALAB 08:30
PROVIDERS: ATTEND Family Medicine
DX: D50.9 Iron deficiency anemia, unspecified (principal); E11.9 Type 2 diabetes mellitus without complications; K76.0 Fatty (change of) liver, not elsewhere classified

== ENCOUNTER → 2024-02-13 | Outpatient (REF) | payer MEDICARE ==
[~2024-02-13] MED LIST changes: +ESOM1CAP20 PO; -ESOM1CAP5 PO
== END ==
LOC: M SFHCPLAZ 19:33
PROVIDERS: ATTEND Family Medicine
DX: D50.9 Iron deficiency anemia, unspecified (principal); I10 Essential (primary) hypertension; E55.9 Vitamin D deficiency, unspecified; E11.9 Type 2 diabetes mellitus without complications

== ENCOUNTER → 2024-07-02 | Outpatient (CLI) | payer MEDICARE ==
[~2024-07-02] MED LIST changes: -CYCL5TAB PO; +CYCL5TAB4 PO; +GABA-1172 PO; -GABA-282 PO
== END ==
LOC: M RAD 16:35
PROVIDERS: ATTEND Family Medicine
DX: Z87.891 Personal history of nicotine dependence (principal)

== ENCOUNTER → 2024-07-24 | Outpatient (CLI) | payer MEDICARE | LOC: M RAD 09:55 | PROVIDERS: ATTEND Family Medicine | DX: K76.0 Fatty (change of) liver, not elsewhere classified (principal) ==

== ENCOUNTER → 2024-08-21 | Outpatient (CLI) | payer MEDICARE ==
[2024-08-21 09:34] LABS: BASO # 0.1 10^3/uL (0.0-0.2); BASO % 1.6 % (0.0-1.0); EOS # 0.1 10^3/uL (0.0-0.5); EOS % 2.3 % (0.0-3.0); HEMATOCRIT 40.4 % (36.0-47.0); HEMOGLOBIN 13.3 g/dl (12.0-15.5); LYMPH # 1.4 10^3/uL (1.5-5.0); LYMPH % 26.2 % (24.0-44.0); MEAN CORPUSCULAR HEMOGLOBIN 30.9 pg (27.0-33.0); MEAN CORPUSCULAR HGB CONC 32.9 g/dl (32.0-36.5); MONO # 0.3 10^3/uL (0.0-0.8); MONO % 6.2 % (2.0-8.0); NEUTROPHILS # 3.3 10^3/uL (1.5-8.5); NEUTROPHILS % 63.5 % (36.0-66.0); PLATELET COUNT, AUTOMATED 238 10^3/uL (150-450); WHITE BLOOD COUNT 5.2 10^3/uL (4.0-10.0)
[2024-08-21 10:02] LABS: ALBUMIN 3.7 G/DL (3.2-5.2); ALKALINE PHOSPHATASE 169 U/L (35-104); ALT/SGPT 41 U/L (7.0-40); AST/SGOT 26 U/L (<34); BILIRUBIN,TOTAL 0.6 MG/DL (0.3-1.2); BLOOD UREA NITROGEN 13 MG/DL (9-23); CALCIUM LEVEL 9.2 MG/DL (8.5-10.1); CARBON DIOXIDE LEVEL 30 MMOL/L (20-31); CHLORIDE LEVEL 108 MMOL/L (98-107); CREATININE FOR GFR 0.94 MG/DL (0.55-1.30); GLOMERULAR FILTRATION RATE > 60.0 (>51); GLUCOSE, FASTING 93 MG/DL (60-100); POTASSIUM SERUM 4.4 MMOL/L (3.5-5.1); PTH INTACT 80.3 PG/ML (18.5-88.0); SODIUM LEVEL 144 MMOL/L (136-145)
[2024-08-21 10:04] LABS: FERRITIN 29.1 NG/ML (7.3-270.7); TOTAL 25(OH) VITAMIN D 74.5 NG/ML (20.0-100.0)
[2024-08-21 10:07] LABS: VITAMIN B12 LEVEL 431 PG/ML (211-911)
== END ==
LOC: M CARPUL 08:30
PROVIDERS: ATTEND Family Medicine
DX: I35.1 Nonrheumatic aortic (valve) insufficiency (principal); D50.9 Iron deficiency anemia, unspecified

== ENCOUNTER → 2024-08-27 | Outpatient (CLI) | payer MEDICAID, MEDICARE | LOC: M WHC 08:25 | PROVIDERS: ATTEND Nurse Practitioner Family | DX: Z12.31 Encounter for screening mammogram for malignant neoplasm of breast (principal); R92.313 Mammographic fatty tissue density, bilateral breasts ==

== ENCOUNTER → 2024-08-27 | Outpatient (REF) | payer MEDICARE | LOC: M SFHCWAGY 13:02 | PROVIDERS: ATTEND Nurse Practitioner Family | DX: Z12.72 Encounter for screening for malignant neoplasm of vagina (principal); Z11.51 Encounter for screening for human papillomavirus (HPV) | CPT/HCPCS: 87624; G0123 ==

== ENCOUNTER → 2025-01-21 | Outpatient (REF) | payer MEDICARE ==
[~2025-01-21] MED LIST changes: +LIDO1ADH93 TOP; -LIDO5DIS41 TOP
[2025-01-21 13:58] LABS: BASO # 0.1 10^3/uL (0.0-0.2); BASO % 1.2 % (0.0-1.0); EOS # 0.1 10^3/uL (0.0-0.5); EOS % 2.0 % (0.0-3.0); LYMPH # 1.0 10^3/uL (1.5-5.0); LYMPH % 24.4 % (24.0-44.0); MONO # 0.4 10^3/uL (0.0-0.8); MONO % 10.0 % (2.0-8.0); NEUTROPHILS # 2.5 10^3/uL (1.5-8.5); NEUTROPHILS % 62.2 % (36.0-66.0); PLATELET COUNT, AUTOMATED 200 10^3/uL (150-450)
[2025-01-21 14:08] LABS: ALT/SGPT 49 U/L (7.0-40); AST/SGOT 39 U/L (<34); CALCIUM LEVEL 9.3 MG/DL (8.5-10.1); CARBON DIOXIDE LEVEL 28 MMOL/L (20-31); CHLORIDE LEVEL 109 MMOL/L (98-107); CHOLESTEROL LEVEL 174 MG/DL (<200); CHOLESTEROL RISK RATIO 5.19 (<5); CREATININE FOR GFR 0.98 MG/DL (0.55-1.30); GLOMERULAR FILTRATION RATE 68.6 (>51); LDL CHOLESTEROL 69.9 MG/DL (<100); NON-HDL-C 140.5 MG/DL; POTASSIUM SERUM 4.4 MMOL/L (3.5-5.1); SODIUM LEVEL 147 MMOL/L (136-145); TRIGLYCERIDES LEVEL 353 MG/DL (<150)
[2025-01-21 14:09] LABS: VITAMIN B12 LEVEL 491 PG/ML (211-911)
== END ==
LOC: M SFHCPLAZ 09:10
PROVIDERS: ATTEND Family Medicine
DX: D50.9 Iron deficiency anemia, unspecified (principal); I10 Essential (primary) hypertension; E11.9 Type 2 diabetes mellitus without complications; K76.0 Fatty (change of) liver, not elsewhere classified; E78.2 Mixed hyperlipidemia

== ENCOUNTER 2025-03-01 16:33 | Inpatient (IN) | payer MEDICARE, OTHER ==
[~2025-03-01] VITALS: Ht 152.4 cm; Wt 91.4 kg
[2025-03-01 17:40] LABS: BASO # 0.1 10^3/uL (0.0-0.2); BASO % 0.7 % (0.0-1.0); EOS # 0.0 10^3/uL (0.0-0.5); EOS % 0.3 % (0.0-3.0); LYMPH # 0.7 10^3/uL (1.5-5.0); LYMPH % 7.4 % (24.0-44.0); MONO # 0.8 10^3/uL (0.0-0.8); MONO % 8.7 % (2.0-8.0); NEUTROPHILS # 7.6 10^3/uL (1.5-8.5); NEUTROPHILS % 82.5 % (36.0-66.0); PLATELET COUNT, AUTOMATED 217 10^3/uL (150-450)
[2025-03-01] MEDS: ONDANSETRON 4MG 2ML VIAL IV ONE (18:05)
[2025-03-01] MEDS: diphenhydrAMINE 50 MG/ML VIAL IV ONE (18:05)
[2025-03-01] MEDS: NS (Normal Saline) 0.9% 1,000 ML IV ONE (18:05)
[2025-03-01] MEDS: HYDROMORPHONE HCL 0.5 MG/0.5 ML SYRINGE IV ONE (18:06)
[2025-03-01] MEDS: ACETAMINOPHEN *IV* 1,000 MG in IV 1 EA IV ONE (18:07)
[2025-03-01 18:13] LABS: CK-MB VALUE MASS < 1.0 NG/ML (<3.6)
[2025-03-01 18:15] LABS: ALT/SGPT 102 U/L (7.0-40); AST/SGOT 150 U/L (<34); CALCIUM LEVEL 9.0 MG/DL (8.5-10.1); CARBON DIOXIDE LEVEL 27 MMOL/L (20-31); CHLORIDE LEVEL 102 MMOL/L (98-107); CREATININE FOR GFR 0.88 MG/DL (0.55-1.30); GLOMERULAR FILTRATION RATE 78.1 (>51); POTASSIUM SERUM 4.6 MMOL/L (3.5-5.1); SODIUM LEVEL 140 MMOL/L (136-145)
[2025-03-01 18:16] LABS: CPK CREATINE PHOSPHOKINASE 160 U/L (34-145)
[2025-03-01] MEDS ORDERED: ISOVUE-370 76% 100 ML VIAL As Ordered ONE (18:27)
[2025-03-01 21:00] LABS: KETONE, URINE AUTO RFX NEGATIVE (NEGATIVE); MUCUS, URINE RFX SMALL (NEGATIVE); RBC, URINE AUTO RFX 4 /HPF (0-3); SQUAM EPITHELIAL CELL UR AURFX 0 /HPF (0-6)
[2025-03-01 21:01] LABS: LEUKOCYTE ESTERASE UR AUTO RFX 2+ (NEGATIVE); NITRITE, URINE AUTO RFX POSITIVE (NEGATIVE); WBC, URINE AUTO RFX 142 /HPF (0-3)
[2025-03-01] MEDS: NS (Normal Saline) 0.9% 1,660 ML in IV 1 EA IV ONE (21:31)
[2025-03-01] MEDS: cefTRIAXone SOD 2 GM in DEXTROSE 5% (D5W) ADV/MINI-BAG 50 ML IV ONE (21:36)
[2025-03-01 22:02] LABS: CK-MB VALUE MASS < 1.0 NG/ML (<3.6)
[2025-03-01 22:03] LABS: CPK CREATINE PHOSPHOKINASE 135 U/L (34-145)
[2025-03-01] MEDS ORDERED: MAALOX 30 ML SUSP *UDC PO PRN (22:45)
[2025-03-01] MEDS ORDERED: MOM 30 ML SUSPENSION UDC PO PRN (22:45)
[2025-03-01] MEDS ORDERED: ACETAMINOPHEN 325 MG TAB PO PRN (22:45)
[2025-03-01] MEDS: NS (Normal Saline) 0.9% 1,000 ML IV SCH (23:21)
[2025-03-02 00:05] LABS: HEPATITIS C VIRUS ABY INDEX < 0.02 INDEX (<0.8)
[2025-03-02] MEDS ORDERED: SEMA1PEN2 SC (00:11)
[2025-03-02] MEDS ORDERED: HOME MED LIST COMPLETE! XX SCH (00:15)
[2025-03-02 00:30] VITALS: BP 102/74; TEMP 96.8; O2SAT 93
[2025-03-02] MEDS: KETOROLAC 30 MG/ML 1 ML VIAL IV PRN (00:55)
[2025-03-02 04:27] VITALS: BP 102/72; TEMP 97.2; O2SAT 92
[2025-03-02] MEDS ORDERED: traZODone 50 MG TAB PO PRN (06:20)
[2025-03-02] MEDS ORDERED: GLUCAGON INJ 1 MG VIAL SC PRN (06:25)
[2025-03-02] MEDS ORDERED: GLUCOSE 4 GM CHEW PO PRN (06:25)
[2025-03-02] MEDS ORDERED: DEXTROSE 50% 50 ML SYRINGE IV PRN (06:25)
[2025-03-02 06:33] LABS: PLATELET COUNT, AUTOMATED 175 10^3/uL (150-450)
[2025-03-02 07:10] LABS: ALT/SGPT 75 U/L (7.0-40); AST/SGOT 66 U/L (<34); CALCIUM LEVEL 7.7 MG/DL (8.5-10.1); CARBON DIOXIDE LEVEL 24 MMOL/L (20-31); CHLORIDE LEVEL 110 MMOL/L (98-107); CREATININE FOR GFR 0.63 MG/DL (0.55-1.30); GLOMERULAR FILTRATION RATE > 90.0 (>51); MAGNESIUM LEVEL 2.5 MG/DL (1.8-2.4); POTASSIUM SERUM 4.4 MMOL/L (3.5-5.1); SODIUM LEVEL 144 MMOL/L (136-145)
[2025-03-02] MEDS: ASPIRIN 81 MG ENTERIC TABLET PO SCH (08:38)
[2025-03-02] MEDS: oxyBUTYnin *XL* 5 MG TAB PO SCH (08:38)
[2025-03-02] MEDS: PANTOPRAZOLE 40MG VIAL IV SCH (08:38)
[2025-03-02] MEDS: DOCUSATE SODIUM 100 MG CAPSULE PO SCH (08:39)
[2025-03-02] MEDS: HEPARIN SOD 5000 UNITS/ML 1 ML VIAL/SYRINGE SC SCH (08:39)
[2025-03-02] MEDS: INSULIN LISPRO (NovoLOG) PER UNIT SC SCH (08:39)
[2025-03-02 12:00] VITALS: BP 104/74; TEMP 97; O2SAT 94
[2025-03-02 21:36] VITALS: BP 120/79; TEMP 97.7; O2SAT 91
[2025-03-02] MEDS: CETIRIZINE 10 MG TAB PO SCH (21:45)
[2025-03-02] MEDS: cefTRIAXone SOD 1 GM in DEXTROSE 5% (D5W) ADV/MINI-BAG 50 ML IV SCH (21:46)
[2025-03-03 04:28] VITALS: BP 111/73; TEMP 97.7; O2SAT 91
[2025-03-03 06:37] LABS: BASO # 0.0 10^3/uL (0.0-0.2); BASO % 0.2 % (0.0-1.0); EOS # 0.0 10^3/uL (0.0-0.5); EOS % 0.0 % (0.0-3.0); LYMPH # 0.7 10^3/uL (1.5-5.0); LYMPH % 8.5 % (24.0-44.0); MONO # 0.4 10^3/uL (0.0-0.8); MONO % 4.9 % (2.0-8.0); NEUTROPHILS # 7.4 10^3/uL (1.5-8.5); NEUTROPHILS % 85.8 % (36.0-66.0); PLATELET COUNT, AUTOMATED 195 10^3/uL (150-450)
[2025-03-03 07:05] LABS: ALT/SGPT 152 U/L (7.0-40); AST/SGOT 123 U/L (<34); CALCIUM LEVEL 8.5 MG/DL (8.5-10.1); CARBON DIOXIDE LEVEL 25 MMOL/L (20-31); CHLORIDE LEVEL 112 MMOL/L (98-107); CREATININE FOR GFR 0.69 MG/DL (0.55-1.30); GLOMERULAR FILTRATION RATE > 90.0 (>51); POTASSIUM SERUM 4.1 MMOL/L (3.5-5.1); SODIUM LEVEL 147 MMOL/L (136-145)
[2025-03-03] MEDS ORDERED: CIPR500T39 PO (08:41)
[2025-03-03] MEDS: CIPROFLOXACIN 500 MG TABLET PO SCH (09:15)
== END 2025-03-03 12:37 | disposition home or self-care (01) | DRG 872 ==
LOC: M ED 16:33 → M ED INP 22:45 → M MSPAV 03-02 00:24
PROVIDERS: ADMIT Student in an Organized Health Care Education/Training Program; ATTEND Internal Medicine Nephrology
DX: A41.9 Sepsis, unspecified organism (principal); N10 Acute pyelonephritis; E78.5 Hyperlipidemia, unspecified; E88.810 Metabolic syndrome; M47.812 Spondylosis without myelopathy or radiculopathy, cervical region; R73.01 Impaired fasting glucose; M47.816 Spondylosis without myelopathy or radiculopathy, lumbar region; K31.819 Angiodysplasia of stomach and duodenum without bleeding; G47.33 Obstructive sleep apnea (adult) (pediatric); K76.0 Fatty (change of) liver, not elsewhere classified; R74.01 Elevation of levels of liver transaminase levels; E11.9 Type 2 diabetes mellitus without complications; Z88.5 Allergy status to narcotic agent; Z91.041 Radiographic dye allergy status; K57.50 Diverticulosis of both small and large intestine without perforation or abscess without bleeding; B96.20 Unspecified Escherichia coli [E. coli] as the cause of diseases classified elsewhere; E66.01 Morbid (severe) obesity due to excess calories; Z95.2 Presence of prosthetic heart valve; Z68.39 Body mass index [BMI] 39.0-39.9, adult; Z79.84 Long term (current) use of oral hypoglycemic drugs; Z79.82 Long term (current) use of aspirin; Z79.899 Other long term (current) drug therapy; Z98.1 Arthrodesis status; Z85.44 Personal history of malignant neoplasm of other female genital organs

== ENCOUNTER → 2025-06-13 | Outpatient (REF) | payer OTHER ==
[~2025-06-13] MED LIST changes: +CIPR500T39 PO; +SEMA1PEN2 SC
[2025-06-13 13:42] LABS: BASO # 0.1 10^3/uL (0.0-0.2); BASO % 1.4 % (0.0-1.0); EOS # 0.2 10^3/uL (0.0-0.5); EOS % 3.4 % (0.0-3.0); LYMPH # 1.3 10^3/uL (1.5-5.0); LYMPH % 22.5 % (24.0-44.0); MONO # 0.4 10^3/uL (0.0-0.8); MONO % 6.7 % (2.0-8.0); NEUTROPHILS # 3.7 10^3/uL (1.5-8.5); NEUTROPHILS % 66.0 % (36.0-66.0); PLATELET COUNT, AUTOMATED 226 10^3/uL (150-450)
[2025-06-13 13:48] LABS: ALT/SGPT 33.0 U/L (7.0-40); AST/SGOT 33.0 U/L (<34); CALCIUM LEVEL 9.5 MG/DL (8.5-10.1); CARBON DIOXIDE LEVEL 32.0 MMOL/L (20-31); CHLORIDE LEVEL 107.0 MMOL/L (98-107); CREATININE FOR GFR 0.79 MG/DL (0.55-1.30); GLOMERULAR FILTRATION RATE 88.8 (>51); POTASSIUM SERUM 4.4 MMOL/L (3.5-5.1); PTH INTACT 55.2 PG/ML (18.5-88.0); SODIUM LEVEL 146.0 MMOL/L (136-145)
[2025-06-13 13:50] LABS: TOTAL 25(OH) VITAMIN D 83.2 NG/ML (20.0-100.0)
[2025-06-13 14:03] LABS: ESTIMATED AVERAGE GLUCOSE 91.0 MG/DL (60-110)
[2025-06-13 14:06] LABS: CREATININE, URINE 208.6 MG/DL; MALB URINE SIEMENS 9.0 MG/L; MAU/CREAT RATIO 4.3 MCG/MG (0.0-30.0)
[2025-06-17 09:38] LABS: INSULIN LEVEL 14.1 uIU/mL (<=18.4)
== END ==
LOC: M SFHCPLAZ 09:09
PROVIDERS: ATTEND Family Medicine
DX: D50.9 Iron deficiency anemia, unspecified (principal); I10 Essential (primary) hypertension; E55.9 Vitamin D deficiency, unspecified; E11.9 Type 2 diabetes mellitus without complications; K76.0 Fatty (change of) liver, not elsewhere classified; Z12.31 Encounter for screening mammogram for malignant neoplasm of breast